=== PATIENT | female | born 1935 | race Caucasian/White ===

== ENCOUNTER 2018-09-26 15:16 | Observation (INO) ==
[2018-09-26] MEDS ORDERED: *HR* FentaNYL (PF) 100 MCG/2 ML VIAL IVP ONE ×2 (15:35→18:56)
[2018-09-26] MEDS ORDERED: Isovue-370 500 ML INFUS..BTL IV ONE (15:36)
[2018-09-26 16:03] LABS: Basophils # 0.1 K/mcL (0.0-0.2); Basophils % 0.9 %; Eosinophils % 0.4 %; Hematocrit 38.2 % (35.3-44.9); Hemoglobin 12.8 g/dL (11.5-15.4); Immature Granulocytes % 3.2 % (0-4); Lymphocytes # 1.2 K/mcL (0.6-4.6); Lymphocytes % 17.8 %; Mean Corpuscular HGB Conc 33.5 g/dL (31.6-35.5); Mean Corpuscular Hemoglobin 29.9 pg (28.0-33.3); Mean Corpuscular Volume 89.3 fL (83.0-100.0); Mean Platelet Volume 9.9 fL (9.4-12.4); Monocytes # 0.7 K/mcL (0.0-1.3); Monocytes % 10.1 %; Neutrophils # 4.6 K/mcL (1.6-8.9); Platelet Count 279 K/mcL (140-400); Red Blood Count 4.28 M/mcL (3.82-4.97); Red Cell Distribution Width 13.2 % (11.5-14.5); Segmented Neutrophils % 67.6 %
[2018-09-26 16:16] LABS: Prothrombin Time 11.7 Seconds (9.4-12.1)
[2018-09-26 16:18] LABS: Activated Partial Thrombo Time 30.9 Seconds (26.0-36.0)
[2018-09-26 16:19] LABS: BUN/Creatinine Ratio 19 (6-26); Blood Urea Nitrogen 15 mg/dL (8-23); Calcium 10.2 mg/dL (8.6-10.3); Carbon Dioxide 27 mEq/L (23-29); Chloride 97 mEq/L (98-107); Glucose 192 mg/dL (70-105); Osmolality,Calculated 282 (280-300); Potassium 4.3 mEq/L (3.5-5.1); Sodium 133 mEq/L (136-145); eGFR For Non-African Americans > 60 (> 60)
[2018-09-26 16:20] LABS: Troponin I < 0.03 ng/mL (< 0.04)
[2018-09-26 16:23] LABS: Alanine Aminotransferase 19 Units/L (7-52); Albumin 4.5 g/dL (3.5-5.7); Albumin/Globulin Ratio 1.7 (1.1-2.2); Alkaline Phosphatase 110 Units/L (34-104); Aspartate Amino Transferase 20 Units/L (13-39); Bilirubin,Direct 0.1 mg/dL (0.0-0.2); Bilirubin,Indirect 0.4 mg/dL (0.0-1.2); Bilirubin,Total 0.5 mg/dL (0.3-1.0); Globulin 2.6 g/dL (2.4-3.5); Lipase 10 Units/L (11-82); Total Protein 7.1 g/dL (6.4-8.9)
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
--- NOTE | 2018-09-26 19:30 | Emergency Department Note ---
Disposition Clinical Impression: Intractable back pain, Unable to ambulate Disposition: Admitted As Inpatient Condition: Good General Adult HPI - General Stated complaint: back pain, cp Time Seen by Provider: 09/26/18 15:21 Source: patient Mode of arrival: ambulatory Limitations: no limitations - Related Data Home Medications Medication Instructions Recorded Confirmed Fluticasone Propionate [Aller-Deshaun] 1 spr NS DAILY 09/26/18 09/26/18 RX: Albuterol Sulfate [Albuterol 2 puff IH Q4H PRN 09/26/18 09/26/18 Inhaler] RX: Beclomethasone Dip 40mcg REDIH 40 mcg IH BID 09/26/18 09/26/18 [Qvar 40 Mcg Redihaler] Allergies Allergy/AdvReac Type Severity Reaction Status Date / Time No Known Allergies Allergy Verified 09/25/18 07:45 Past Medical History - Past Medical History Medical history: Reports: asthma Psychiatric history: Reports: no psych history SALES AND TRAINING SPECIALIST history: Reports: no SALES AND TRAINING SPECIALIST history - Social History Smoking Status: Never smoker Smokeless Tobacco Status: No Alcohol use: Reports: none Drug use: Reports: none Physical Exam - General Limitations: no limitations Course Vital Signs Temperature 98.4 F 09/26/18 15:26 Pulse Rate 99 09/26/18 15:26 Respiratory Rate 18 09/26/18 15:26 Blood Pressure 141/93 09/26/18 15:26 O2 Sat by Pulse Oximetry 100 09/26/18 15:26 Temperature 98.4 F 09/26/18 15:26 Pulse Rate 88 09/26/18 20:20 Respiratory Rate 16 09/26/18 20:20 Blood Pressure 122/82 09/26/18 20:20 O2 Sat by Pulse Oximetry 98 09/26/18 20:20 Oxygen Delivery Oxygen Delivery Room Air Medical Decision Making - Lab Data Result diagrams: 09/26/18 15:33 09/26/18 15:33 Lab Results 09/26/18 09/26/18 09/26/18 Range/Units 15:23 15:33 15:33 WBC 6.8 (4.3-11.1) K/mcL RBC 4.28 (3.82-4.97) M/mcL Hgb 12.8 (11.5-15.4) g/dL Hct 38.2 (35.3-44.9) % MCV 89.3 (83.0-100.0) fL MCH 29.9 (28.0-33.3) pg MCHC 33.5 (31.6-35.5) g/dL RDW 13.2 (11.5-14.5) % Plt Count 279 (140-400) K/mcL MPV 9.9 (9.4-12.4) fL Immature Gran % 3.2 (0-4) % Seg Neutrophils % 67.6 % Lymphocytes % 17.8 % Monocytes % 10.1 % Eosinophils % 0.4 % Basophils % 0.9 % Neutrophils # 4.6 (1.6-8.9) K/mcL Lymphocytes # 1.2 (0.6-4.6) K/mcL Monocytes # 0.7 (0.0-1.3) K/mcL Eosinophils # 0.0 (0.0-0.6) K/mcL Basophils # 0.1 (0.0-0.2) K/mcL PT 11.7 (9.4-12.1) Seconds INR 1.0 APTT 30.9 (26.0-36.0) Seconds Sodium 133 L (136-145) mEq/L Potassium 4.3 (3.5-5.1) mEq/L Chloride 97 L (98-107) mEq/L Carbon Dioxide 27 (23-29) mEq/L BUN 15 (8-23) mg/dL Creatinine 0.78 (0.60-1.20) mg/dL Est GFR ( Amer) > 60 (> 60) Est GFR (Non-Af Amer) > 60 (> 60) BUN/Creatinine Ratio 19 (6-26) Glucose 192 H (70-105) mg/dL Calculated Osmolality 282 (280-300) Calcium 10.2 (8.6-10.3) mg/dL Total Bilirubin 0.5 (0.3-1.0) mg/dL Direct Bilirubin 0.1 (0.0-0.2) mg/dL Indirect Bilirubin 0.4 (0.0-1.2) mg/dL AST 20 (13-39) Units/L ALT 19 (7-52) Units/L Alkaline Phosphatase 110 H (34-104) Units/L Troponin I < 0.03 (< 0.04) ng/mL Serum Total Protein 7.1 (6.4-8.9) g/dL Albumin 4.5 (3.5-5.7) g/dL Globulin 2.6 (2.4-3.5) g/dL Albumin/Globulin Ratio 1.7 (1.1-2.2) Lipase 10 L (11-82) Units/L Attestation Statement - Attestation Attestation: I examined this patient and my medical decision-making was reviewed with the Resident Physician. I agree with the documented findings, disposition and tr eatment plan as described except to the extent set forth below. [id number] time provided Patient presents from home by EMS. She complains of low back pain. She states she has chronic low back pain. She denies new injury. She appears mildly uncomfortable on exam.
[2018-09-26] MEDS ORDERED: Ketorolac 15 MG/ML VIAL IVP PRN (21:11)
[2018-09-26] MEDS ORDERED: Acetaminophen 325 MG TABLET PO PRN (21:11)
[2018-09-26] MEDS ORDERED: Naloxone 0.4 MG/ML INJ IVP PRN (21:11)
[2018-09-26] MEDS ORDERED: *HR* HYDROcodone/Acet 5/325 mg TABLET PO PRN (21:11)
[2018-09-26] MEDS ORDERED: 0.9 % Sodium Chloride 1,000 ML IVC SCH (21:15)
--- NOTE | 2018-09-26 22:36 | Internal Med History&Physical ---
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 She felt exquisite pain in her lower back and a popping sound. She has been to the ER on multiple occasions and PCP for the pain, being prescribed analgesics as needed. She states that the pain has been ascending into her upper back of recent and today became exquisite. In the ER she required 2 doses of IV fentanyl to obtain only modest relief. It is exacerbated by movement and at this time feels limited in that regards. She also feels that she cannot care for her adequately because of her pain and inability to move while he remains alone at home tonight. guest services associate were consulted for assistance. For now she is admitted for intractable back pain. CT scan done showed an L4 compression fracture which is subacute to chronic. She reports associated pain in her hip too as it radiates but otherwise has no other complaints. Family history reviewed and found noncontributory. Past Med Surg Social Fam HX - Past Medical History Medical history: asthma Additional medical history: skin cancer-melanoma. diverticulitis Psychiatric history: no psych history - Past Surgical History Additional surgical history: part of colon d/t diverticulitis - Social History Smoking Status: Never smoker Smokeless Tobacco Status: No Alcohol use: none Drug use: none Internal Medicine - H&P: Meds Albuterol Sulfate [Albuterol Inhaler] 2 puff IH Q4H PRN 09/26/18 [History] Beclomethasone Dip 40mcg REDIH [Qvar 40 Mcg Redihaler] 40 mcg IH BID 09/26/18 [History] Fluticasone Propionate [Aller-Deshaun] 1 spr NS DAILY 09/26/18 [History] Allergy/AdvReac Type Severity Reaction Status Date / Time No Known Allergies Allergy Verified 09/25/18 07:45 All Systems PM: A 10-system review of systems was performed and is negative for pertinent findings except as documented above in the HPI. - Constitutional Vitals: Temp Pulse Resp BP Pulse Ox 98.4 F 88 16 122/82 98 09/26/18 15:26 09/26/18 20:20 09/26/18 20:20 09/26/18 20:20 09/26/18 20:20 Exam: Vitals: Reviewed General: Well developed, notable discomfort from pain and antalgic posturing Skin: Wamr and supple. HEENT: Moist mucous membranes. No conjunctivae pallor. Neck: No lymphadenopathy. No JVD. No carotid bruits. No palpable thyroid. Chest: Normal thoracic expansion. Normal breath sounds. Clear to auscultation. Heart: Normal S1 & S2; rhythmic. No rubs or murmurs. Abdomen: Non-distended, soft and non-tender to palpation. No peritoneal reaction. Extremities: No clubbing, cyanosis or edema. No calf tenderness. Normal distal pulses. MSK: Point tenderness in the lumbar midline area and the left subscapular mazin on. No inflammatory signs present. Neurological: Awake, alert and oriented to person, place and time. No focal deficits. Psych: Affect appropriate. Internal Med - H&P Results - Labs CBC & Chem 7: 09/26/18 15:33 09/26/18 15:33 Labs: Short CBC 09/26/18 Range/Units 15:33 WBC 6.8 (4.3-11.1) K/mcL Hgb 12.8 (11.5-15.4) g/dL Hct 38.2 (35.3-44.9) % Plt Count 279 (140-400) K/mcL Neutrophils # 4.6 (1.6-8.9) K/mcL BMP 09/26/18 15:33 Sodium 133 L Potassium 4.3 Chloride 97 L Carbon Dioxide 27 BUN 15 Creatinine 0.78 Glucose 192 H Calcium 10.2 Cardiac Enzymes 09/26/18 Range/Units 15:33 Troponin I < 0.03 (< 0.04) ng/mL Liver Function 09/26/18 Range/Units 15:33 Total Bilirubin 0.5 (0.3-1.0) mg/dL Direct Bilirubin 0.1 (0.0-0.2) mg/dL AST 20 (13-39) Units/L ALT 19 (7-52) Units/L Alkaline Phosphatase 110 H (34-104) Units/L Albumin 4.5 (3.5-5.7) g/dL - Impressions ITS Impressions Chest X-Ray 09/26/18 15:23 IMPRESSION: Left lower lobe opacity likely represents atelectasis. D/ / 09/26/2018 16:14:54 Jayme Bell MD / jaki Interpreting Provider: Jayme Bell MD Abdomen/Pelvis CTA 09/26/18 15:36 IMPRESSION: No acute inflammatory process. No bowel obstruction. Moderate amount of stool suggests constipation. Subacute appearing L4 compression fracture. Increased sclerosis is suspected to be related to healing and less likely osseous metastatic disease. Recommend close follow-up. D/ / 09/26/2018 18:35:05 Jayme Bell MD / jaki Interpreting Provider: Jayme Bell MD - Assessment and plan (1) Intractable back pain Current Visit: Yes Status: Acute Assessment and plan: Likely stemming from compression fracture. Will require PT evaluation at some point. SW assistance for home services given her functional impairment. Lidocaine patch, oral pain meds as needed. (2) COPD (chronic obstructive pulmonary disease) Current Visit: Yes Status: Acute Assessment and plan: Stable w/o signs of acute exacerbation. Will place on JUSTIN prn and LABA/ICS daily. Qualifiers: COPD type: unspecified COPD Qualified Code(s): J44.9 - Chronic obstructive pulmonary disease, unspecified (3) Constipation Current Visit: Yes Status: Acute Assessment and plan: Will place on docusate with the opiate analgesic regimen. Qualifiers: Constipation type: unspecified constipation type Qualified Code(s): K59.00 - Constipation, unspecified (4) DVT prophylaxis Current Visit: Yes Status: Acute Assessment and plan: SubQ heparin. - Time Spent With Patient Total time spent is greater than 50% in coordination of care (as documented) at patient's floor/unit and/or counseling patient: Greater than 35 minutes
[2018-09-26] MEDS: *HR* Heparin 5,000 UNIT/ML VIAL SQ SCH (22:41)
[2018-09-27] MEDS: *HR* OxyCODONE Immed Rel 5 MG TABLET PO PRN ×2 (04:29→11:21)
[2018-09-27] MEDS: *HR* Heparin 5,000 UNIT/ML VIAL SQ SCH ×3 (06:13→22:05)
[2018-09-27 06:40] LABS: BUN/Creatinine Ratio 14 (6-26); Blood Urea Nitrogen 10 mg/dL (8-23); Calcium 9.5 mg/dL (8.6-10.3); Carbon Dioxide 28 mEq/L (23-29); Chloride 103 mEq/L (98-107); Glucose 150 mg/dL (70-105); Osmolality,Calculated 288 (280-300); Potassium 4.2 mEq/L (3.5-5.1); Sodium 138 mEq/L (136-145); eGFR For Non-African Americans > 60 (> 60)
[2018-09-27] MEDS: Beclomethasone 40mcg REDIHALER IH SCH ×2 (10:52→22:29)
[2018-09-27] MEDS: Fluticasone Propionate Nasal 50 MCG/SPRAY BOTTLE NS SCH (13:36)
[2018-09-27] MEDS: *HR* HYDROcodone/Acet 5/325 mg TABLET PO SCH ×2 (16:32→22:05)
--- NOTE | 2018-09-27 23:20 | Internal Med Progress Note ---
Hospitalist Progress Note - Encounter Date of Encounter: 09/27/18 Time of Encounter: 14:00 - Subjective Interval History: SUBJECTIVE: The patient feels better. She tells me that painkillers are taking at from her pain. She is able to ambulate to bathroom on her own. She felt very comfortable when she was talking to medescribed her back pain as 7 on 10 point scale. The pain is located right to her lower lumbar spine. OBJECTIVE: Skin: Free of rash and discoloration. ENMT: Oral/pharyngeal mucosa is normal in appearance. Eyes: Sclera is white. There is no discharge from eyes. Respiratory: Normal breath sounds; no crackles or wheezes. CV: Heart is regular; no gallop or murmur. GI: Abdomen is soft and not tender. There is no palpable mass or visceromegaly. Neuro: There is no focal deficits. ADDITIONAL DATA: CT of abdomen and pelvis shows subacute/chronic compression fracture of L4. It seems to be stable. BMP from today is normal. ASSESSMENT AND PLAN: Intractable low back pain secondary to subacute/chronic compression fracture of L4. We will continue physical therapy. I will switch her to schedule [place]. COPD. Under control. I will continue nebulizer treatments with beclomethasone and albuterol. Constipation. We will continue Colace. - Exam Vitals: Temp Pulse Resp BP Pulse Ox 97.6 F 98 16 144/78 97 09/27/18 19:09 09/27/18 19:09 09/27/18 22:30 09/27/18 19:09 09/27/18 22:30 Exam: xx - Assessment and Plan (1) Constipation Current Visit: Yes Status: Acute (2) Intractable back pain Current Visit: Yes Status: Acute (3) COPD (chronic obstructive pulmonary disease) Current Visit: Yes Status: Acute (4) DVT prophylaxis Current Visit: Yes Status: Acute - Time Spent with Patient Total time spent is greater than 50% in coordination of care (as documented) at patient's floor/unit and/or counseling patient: 25 - 35 minutes Plan of Care Discussed with: patient Internal Medicine: Result - Labs CBC & Chem 7: 09/26/18 15:33 09/27/18 05:34 Labs: BMP 09/27/18 05:34 Sodium 138 Potassium 4.2 Chloride 103 Carbon Dioxide 28 BUN 10 Creatinine 0.72 Glucose 150 H Calcium 9.5 - ABG Interpretation ABG results: PT/INR, D-dimer PT 11.7 Seconds (9.4-12.1) 09/26/18 15:23 Consult Discharge Plan - Plan Referrals: Linnea Quintero DO [Primary Care Provider] - (1) Constipation Qualifiers: Constipation type: unspecified constipation type Qualified Code(s): K59.00 - Constipation, unspecified (3) COPD (chronic obstructive pulmonary disease) Qualifiers: COPD type: unspecified COPD Qualified Code(s): J44.9 - Chronic obstructive pulmonary disease, unspecified
[2018-09-28] MEDS: *HR* Heparin 5,000 UNIT/ML VIAL SQ SCH ×3 (06:37→21:29)
[2018-09-28] MEDS: Beclomethasone 40mcg REDIHALER IH SCH ×2 (08:12→22:00)
[2018-09-28] MEDS: *HR* HYDROcodone/Acet 5/325 mg TABLET PO SCH ×4 (10:05→21:28)
[2018-09-28] MEDS: Fluticasone Propionate Nasal 50 MCG/SPRAY BOTTLE NS SCH (10:19)
[2018-09-28 10:23] LABS: Estimated Average Glucose 177 mg/dl; Hemoglobin A1C 7.8 %
--- NOTE | 2018-09-28 16:10 | Internal Med Progress Note ---
Hospitalist Progress Note - Encounter Date of Encounter: 09/28/18 Time of Encounter: 16:08 - Subjective Interval History: SUBJECTIVE: Patient is on schedule to [place]-5. She is able to ambulate with her walker. She was not using walker before this hospitalization. Her low back pain is better today, comparing to yesterday. Denies chest pain. Denies difficulty breathing, coughing and wheezing. Her last bowel movement was yesterday. She makes good amounts of urine. OBJECTIVE: Skin: Free of rash and discoloration. ENMT: Oral/pharyngeal mucosa is normal in appearance. Eyes: Sclera is white. There is no discharge from eyes. Respiratory: Normal breath sounds; no crackles or wheezes. CV: Heart is regular; no gallop or murmur. GI: Abdomen is soft and not tender. There is no palpable mass or visceromegaly. Neuro: There is no focal deficits. ADDITIONAL DATA: CT of abdomen and pelvis shows subacute/chronic compression fracture of L4. It seems to be stable. BMP from yesterday was normal. ASSESSMENT AND PLAN: Intractable low back pain secondary to subacute/chronic compression fracture of L4. We will continue physical therapy and scheduled Blanca. COPD. Under control. I will continue nebulizer treatments with beclomethasone and albuterol. Constipation. We will continue Colace. Elevated glucose. We will check her hemoglobin A1c. Disposition: The patient will be either discharged home or to [facility]. We will make this determination with help of a social services and physical therapy. - Exam Vitals: Temp Pulse Resp BP Pulse Ox 98.3 F 93 16 123/82 98 09/28/18 15:00 09/28/18 15:00 09/28/18 15:00 09/28/18 15:00 09/28/18 15:00 Exam: xx - Assessment and Plan (1) Intractable back pain Current Visit: Yes Status: Acute (2) Compression fracture of lumbar spine, non-traumatic Current Visit: Yes Status: Acute (3) COPD (chronic obstructive pulmonary disease) Current Visit: Yes Status: Acute (4) Constipation Current Visit: Yes Status: Acute - Time Spent with Patient Total time spent is greater than 50% in coordination of care (as documented) at patient's floor/unit and/or counseling patient: 25 - 35 minutes Plan of Care Discussed with: patient Internal Medicine: Result - Labs CBC & Chem 7: 09/26/18 15:33 09/27/18 05:34 - ABG Interpretation ABG results: PT/INR, D-dimer PT 11.7 Seconds (9.4-12.1) 09/26/18 15:23 Consult Discharge Plan - Plan Referrals: Linnea Quintero DO [Primary Care Provider] - (2) Compression fracture of lumbar spine, non-traumatic Qualifiers: Encounter type: initial encounter Lumbar vertebra fracture level: L4 Qualified Code(s): M48.56XA - Collapsed vertebra, not elsewhere classified, lumbar region, initial encounter for fracture (3) COPD (chronic obstructive pulmonary disease) Qualifiers: COPD type: unspecified COPD Qualified Code(s): J44.9 - Chronic obstructive pulmonary disease, unspecified (4) Constipation Qualifiers: Constipation type: unspecified constipation type Qualified Code(s): K59.00 - Constipation, unspecified
[2018-09-29] MEDS: *HR* Heparin 5,000 UNIT/ML VIAL SQ SCH ×2 (06:25→14:47)
[2018-09-29] MEDS: Beclomethasone 40mcg REDIHALER IH SCH (08:24)
[2018-09-29] MEDS: *HR* HYDROcodone/Acet 5/325 mg TABLET PO SCH ×3 (09:06→17:26)
[2018-09-29] MEDS: Fluticasone Propionate Nasal 50 MCG/SPRAY BOTTLE NS SCH (09:07)
--- NOTE | 2018-09-29 15:11 | Discharge Summary ---
- NOTES TO OUTPATIENT PROVIDER Notes to Outpatient Provider: NEEDS DIABETIC EDUCATION AND REFERRAL TO A NEUROSURGEON.. Date of Encounter: 09/29/18 Time of Encounter: 15:10 - Discharge Diagnosis (1) Intractable back pain Priority: Primary Status: Acute (2) Compression fracture of lumbar spine, non-traumatic Priority: Primary Status: Acute Qualifiers: Encounter type: initial encounter Lumbar vertebra fracture level: L4 Qualified Code(s): M48.56XA - Collapsed vertebra, not elsewhere classified, lumbar region, initial encounter for fracture (3) T2DM (type 2 diabetes mellitus) Priority: Secondary Status: Acute Qualifiers: Diabetes mellitus shelter insulin use: without middle or intermediate school principal use Diabetes mellitus complication status: without complication Qualified Code(s): E11.9 - Type 2 diabetes mellitus without complications (4) COPD (chronic obstructive pulmonary disease) Priority: Secondary Status: Chronic Qualifiers: COPD type: unspecified COPD Qualified Code(s): J44.9 - Chronic obstructive pulmonary disease, unspecified (5) Constipation Priority: Secondary Status: Chronic Qualifiers: Constipation type: unspecified constipation type Qualified Code(s): K59.00 - Constipation, unspecified Hospital course: HOSPITAL COURSE: The patient is an 82-year-old woman. It was a few months before this admission when she felt exquisite pain in her lower back, when lifting her sick . Since then, she has been dealing with this painfluctuating in intensity. The pain got worse in the last few days preceding this admission. It made her ambulation difficult. She started using a walker (belonging to her ) at home. She required 2 injections of IV fentanyl when being in our emergency room on the day of admission. CT of lumbar spine was obtained. It showed subacute to chronic compression f racture of L4. We admitted her to the hospital. We offered her lidocaine patch and when necessary oral solution oxycodone. She was also getting when necessary IV Toradol. Then, I switched her to scheduled [place]-5. She started physical therapy. She is able to ambulate with a walker; can walk without assistance. CONDITION AT DISCHARGE: The patient basically does not have any resting pain. The pain is relatively mild, when she is ambulating with a walker. Denies chest pain. Denies difficulty breathing, coughing and wheezing. Skin: Free of rash and discoloration. Respiratory: Normal breath sounds with no crackles and wheezes bilaterally. CV: Heart is regular with no gallop or murmur. GI: Abdomen is flat and soft with no palpable mass or visceromegaly. Neuro exam: There is no focal deficits. Normal speech, swallowing and gait. SEE DISCHARGE ORDERS/MEDICATIONS.. The patient is discharged home. She will need a referral to a neurosurgeon. She will need diabetic education, as we found her to have mild type 2 diabetes mellitus. Discharge discussed with: patient, social work - Time Spent with Patient Total time spent providing and/or coordinating discharge services: Greater than 30 minutes (40 minutes..) - Discharge Medications Prescriptions: HYDROcodone/Acet 5/325 mg [[place] 5-325 mg] 1 tab PO Q4H PRN 6 Days #24 tablet PRN Reason: Pain metFORMIN [Glucophage] 500 mg PO BIDWM #60 tablet Home Medications: Albuterol Sulfate [Albuterol Inhaler] 2 puff IH Q4H PRN 09/26/18 [History] Beclomethasone Dip 40mcg REDIH [Qvar 40 Mcg Redihaler] 40 mcg IH BID 09/26/18 [History] Fluticasone Propionate [Aller-Deshaun] 1 spr NS DAILY 09/26/18 [History] Docusate [Colace] 100 mg PO BID capsule 09/29/18 [Rx] HYDROcodone/Acet 5/325 mg [[place] 5-325 mg] 1 tab PO Q4H PRN 6 Days #24 tablet 09/29/18 [Rx] metFORMIN [Glucophage] 500 mg PO BIDWM #60 tablet 09/29/18 [Rx] Allergies/Adverse Reactions: Allergy/AdvReac Type Severity Reaction Status Date / Time No Known Allergies Allergy Verified 09/25/18 07:45 Date of admission: 09/26/18 20:07 Primary care physician: Mirna Stoner Consults: 09/26/18 21:12 Consult to Physician Office Specialist [CONS] Routine Reason for SW Consult: patient admitted with intractable back pain and has in home hospice with no resources available 09/26/18 21:13 PT [Consult to Physical Therapy] [CONS] Routine Comment: Evaluate, develop and implement POC Reason for Consult: intractable back pain with ambulatory difficulty Does patient have active BEDREST order?: No Is patient medically & hemodynamically stable?: Yes Patient assessed for mobility or mobilized this visit?: Yes Discharging clinician: Clyde Nicolas Anticipated date of discharge: 09/29/18 - Constitutional Vitals: Temp Pulse Resp BP Pulse Ox 98.0 F 96 16 121/72 98 09/29/18 11:09 09/29/18 11:09 09/29/18 11:09 09/29/18 11:09 09/29/18 11:09 General appearance: Present: A&O X 3, no acute distress, answers questions appropriately Exam: xx - Patient Status Disposition: Home Health Service Condition: Good - Discharge Instructions Instructions: Diabetes Mellitus Type 2 in Adults (DC) Follow Up With: Linnea Quintero, DO [Primary Care Provider] - - Diet and Activity Activity: ambulate only with your walker (with front wheels..) Diet: diabetic diet - VTE Deep Vein Thrombosis/Pulmonary Embolism Present on Admission: No
--- NOTE | 2018-09-29 15:38 | Physician Discharge Referral ---
Home Health/Hosp Referral Info Transfer to: Home Health Attending Provider: Reggie Nicolas MD Provider in Charge Post Discharge: PCP - Diagnosis (1) Intractable back pain Priority: Primary Status: Acute (2) Compression fracture of lumbar spine, non-traumatic Priority: Primary Status: Acute (3) T2DM (type 2 diabetes mellitus) Priority: Secondary Status: Acute (4) COPD (chronic obstructive pulmonary disease) Priority: Secondary Status: Chronic (5) Constipation Priority: Secondary Status: Chronic - Respiratory Orders None Smoking Cessation: Smoking cessation has been advised. For more information, call the [place] Tobacco Quit Line at 5-480-PNUH-NOW. - Diet/Nutrition Diet/Nutrition Orders: No Concentrated Sweets - Activity Activity Orders: Walker (A ROLLING WALKER NEEDED..) - Services Needed Following services are medically necessary services: Nursing, Home Health Aide, Physical Therapy, Occupational Therapy - Transfer Medications Prescriptions: HYDROcodone/Acet 5/325 mg [[place] 5-325 mg] 1 tab PO Q4H PRN 6 Days #24 tablet PRN Reason: Pain metFORMIN [Glucophage] 500 mg PO BIDWM #60 tablet Home Medications: Albuterol Sulfate [Albuterol Inhaler] 2 puff IH Q4H PRN 09/26/18 [History] Beclomethasone Dip 40mcg REDIH [Qvar 40 Mcg Redihaler] 40 mcg IH BID 09/26/18 [History] Fluticasone Propionate [Aller-Deshaun] 1 spr NS DAILY 09/26/18 [History] Docusate [Colace] 100 mg PO BID capsule 09/29/18 [Rx] HYDROcodone/Acet 5/325 mg [[place] 5-325 mg] 1 tab PO Q4H PRN 6 Days #24 tablet 09/29/18 [Rx] metFORMIN [Glucophage] 500 mg PO BIDWM #60 tablet 09/29/18 [Rx] Allergies/Adverse Reactions: Allergy/AdvReac Type Severity Reaction Status Date / Time No Known Allergies Allergy Verified 09/25/18 07:45 Certification: Further, I certify that my clinical findings support that this patient is homebound (i.e. absences from home require considerable and taxing effort and are for medical reasons or [employer] services or infrequently or short duration when for other reasons) because: Homebound Reason: Patient requires assistance of a person or device to safely leave home Attestation: My signature below is to certify that this patient is under my care and that I, or nurse practitioner, or a physician's sugar laboratory assistant working with me, has a [id number] encounter with this patient.
[2018-09-29 16:47] VITALS: BP 125/79
[2018-09-29] MEDS ORDERED: *HR* Metformin 500 MG TABLET PO SCH (17:00)
--- NOTE | 2018-10-03 09:46 | Electrocardiograph Report ---
[place] [id number] Test Date: 2018-09-26 Pat Name: Sussy Marin Department: [id number] Room: [facility] Gender: F Network Support Specialist: : [id number] Requested By: Vinnie Oscar Order Number: [id number] Reading MD: Saurabh Briones Measurements Intervals [place] Rate: 96 P: 38 CA: 123 QRS: -67 QRSD: 121 T: -15 QT: 379 QTc: 479 Interpretive Statements Sinus tachycardia with PACs RBBB and LAFB Electronically Signed On 10-03-2018 9:44:48 EDT by Saurabh Briones
== END 2018-09-29 18:56 | disposition home health service (06) ==
LOC: 3NENU 15:16 → EMEROOARM 15:16 → SUATTDRO 20:07 → 3NENU 20:35
PROVIDERS: ADMIT Internal Medicine; ATTEND Internal Medicine

== ENCOUNTER 2018-12-07 07:24 | Inpatient (IN) ==
[2018-12-07] MEDS ORDERED: Aspirin 81 MG TAB.CHEW PO ONE (07:35)
[2018-12-07 07:46] LABS: Basophils % 0.5 %; Eosinophils % 0.6 %; Hematocrit 28.3 % (35.3-44.9); Immature Granulocytes % 1.1 % (0-4); Lymphocytes # 0.8 K/mcL (0.6-4.6); Lymphocytes % 12.8 %; Mean Corpuscular HGB Conc 31.8 g/dL (31.6-35.5); Mean Corpuscular Hemoglobin 29.3 pg (28.0-33.3); Mean Corpuscular Volume 92.2 fL (83.0-100.0); Mean Platelet Volume 9.5 fL (9.4-12.4); Monocytes # 0.6 K/mcL (0.0-1.3); Monocytes % 9.6 %; Neutrophils # 4.9 K/mcL (1.6-8.9); Platelet Count 261 K/mcL (140-400); Red Blood Count 3.07 M/mcL (3.82-4.97); Red Cell Distribution Width 14.4 % (11.5-14.5); Segmented Neutrophils % 75.4 %
[2018-12-07 08:08] LABS: BUN/Creatinine Ratio 17 (6-26); Blood Urea Nitrogen 10 mg/dL (8-23); Calcium 9.2 mg/dL (8.6-10.3); Carbon Dioxide 26 mEq/L (23-29); Chloride 103 mEq/L (98-107); Glucose 134 mg/dL (70-105); Osmolality,Calculated 285 (280-300); Sodium 137 mEq/L (136-145); eGFR For Non-African Americans > 60 (> 60)
[2018-12-07 08:12] LABS: Troponin I 0.05 ng/mL (< 0.04)
--- NOTE | 2018-12-07 08:13 | Emergency Department Note ---
Disposition Clinical Impression: Multifocal pneumonia, Infection requiring airborne isolation precautions CHF exacerbation Qualifiers: Heart failure type: unspecified Qualified Code(s): I50.9 - Heart failure, unspecified Anemia Qualifiers: Anemia type: unspecified type Qualified Code(s): D64.9 - Anemia, unspecified Chest pain Qualifiers: Chest pain type: unspecified Qualified Code(s): R07.9 - Chest pain, unspecified Disposition: Admitted As Inpatient Condition: Fair Referrals: Linnea Quintero DO [Primary Care Provider] - Forms: ED Satisfaction Letter Time of Disposition: 09:48 General Adult HPI - General Chief complaint: ED Chest Pain Stated complaint: chest pain Time Seen by Provider: 12/07/18 07:27 Source: patient, EMS Mode of arrival: EMS Limitations: no limitations Nursing Notes Reviewed: Yes Vital Signs Reviewed: Yes - History of Present Illness HPI Narrative: Patient is an 82-year-old female with a past medical history of systolic CHF, NC, CAD with 5 stents presents to the emergency department for evaluation of dyspnea as well as chest pressure. Patient states her chest pressure started yesterday evening after eating dinner she describes as a 6/10 in the left side of her chest associated with nausea. Patient states that she is also been short of breath since being discharged from the hospital on November 202017 which she was admitted for NC. She also complains of swelling in the bilateral lower extremities that is worse than usual. States that she does have a dry cough but this is unchanged from her chronic cough. She does have a COPD history however she is a nonsmoker and states that she does not do breathing treatments daily. She has a baseline oxygen requirement of 2 L nasal cannula which she states she only requires at nighttime. Pain Scale: 5 - Related Data Home Medications Medication Instructions Recorded Confirmed Albuterol Sulfate [Albuterol 2 puff IH Q4H PRN 09/26/18 11/18/18 Inhaler] Beclomethasone Dip 40mcg REDIH 40 mcg IH BID 09/26/18 11/18/18 [Qvar 40 Mcg Redihaler] Fluticasone Propionate [Aller-Deshaun] 1 spr NS DAILY PRN 09/26/18 11/18/18 HYDROcodone/Acet 5/325 mg [[place] 1 tab PO Q6H PRN 11/18/18 11/18/18 5-325 mg] Previous Rx's Medication Instructions Recorded Docusate [Colace] 100 mg PO BID capsule 09/29/18 Aspirin Enteric Coated [Aspirin EC] 81 mg PO DAILY tablet. 11/28/18 Furosemide [Lasix] 20 mg PO BIDDIURETIC tablet 11/28/18 Insulin DETEMIR [Levemir] 5 unit SQ HS [id number] 11/28/18 Insulin LISPRO [HumaLOG] 0 units SQ HS vial 11/28/18 Insulin LISPRO [HumaLOG] 0 units SQ TIDAC vial 11/28/18 Melatonin 3 mg PO HS PRN tablet 11/28/18 Metoprolol XL (24 HR) Succ [Toprol 25 mg PO DAILY tab.er.24h 11/28/18 Xl] Omeprazole [PriLOSEC] 20 mg PO BIDAC capsule. 11/28/18 Polyethylene Glycol 3350 [MiraLAX] 17 gm PO DAILY powd.pack 11/28/18 Rosuvastatin [Crestor] 20 mg PO HS tablet 11/28/18 Ticagrelor [Brilinta] 90 mg PO BID tablet 11/28/18 Allergies Allergy/AdvReac Type Severity Reaction Status Date / Time No Known Allergies Allergy Verified 09/25/18 07:45 All systems ED: reviewed and negative except as stated. Review of Systems: As Per HPI Constitutional: Denies: fever, chills Cardiovascular: Reports: chest pain, dyspnea on exertion, orthopnea, edema. Denies: palpitations, syncope, paroxysmal nocturnal dyspnea Respiratory: Denies: cough, dyspnea, wheezes Gastrointestinal: Denies: abdominal pain, nausea, vomiting, diarrhea Musculoskeletal: Denies: back pain, neck pain Integumentary: Denies: rash Neurological: Denies: headache, weakness, numbness Past Medical History - Past Medical History Attestation: Yes The following information was validated with the patient. Medical history: Reports: asthma, CHF, COPD, diabetes, myocardial infarction Psychiatric history: Reports: no psych history REGISTERED NURSE OBSTETRICS history: Reports: no REGISTERED NURSE OBSTETRICS history - Social History Smoking Status: Never smoker Smokeless Tobacco Status: No Alcohol use: Reports: none Drug use: Reports: none Physical Exam - General Limitations: no limitations General appearance: alert, other (Patient has difficulty speaking in full sentences due increased work of breathing) - Head Head exam: atraumatic, normocephalic, normal inspection - Eye Eye exam: Present: normal appearance, PERRL, EOMI - ENT ENT exam: normal exam, normal oropharynx, mucous membranes moist - Neck Neck exam: Present: normal inspection, full ROM, trachea midline - Chest Chest inspection: Present: normal inspection, symmetric chest wall rise - Respiratory Respiratory exam: Present: respiratory distress (mild, patient is short of breath with speaking), other (crackles in the RUL). Absent: wheezes, stridor - Cardiovascular Cardiovascular exam: Present: regular rate, normal rhythm, normal heart sounds, +S1, +S2 - Abdominal Exam Abdominal exam: Present: soft, Non-Tender, normal bowel sounds. Absent: distention, guarding, rebound, rigidity - Extremities Exam Extremities exam: Present: full ROM, normal capillary refill, pedal edema (2+ bilateral). Absent: tenderness - Back Exam Back exam: Present: normal inspection. Absent: tenderness - Neurological Exam Neurological exam: Present: alert, oriented X3 - Psychiatric Psychiatric exam: Present: normal affect, normal mood - Skin Skin exam: Present: warm, dry, intact, normal color Course Course Narrative: Patient is recently admitted to the hospital on November 152015 for a STEMI. She underwent PCI on 11/16 for occluded LCx and again on 11/20 to the RCA. Her most recent TTE showed an EF of 40-45%. She had similar findings on her chest x-ray and differential diagnosis of pneumonia versus pulmonary edema was d iscussed the causes thought to be more pulmonary edema the setting of a recent NC and chronic bilateral lower extremity swelling over the past 2 months. The patient ultimately was discharged she is placed on by mouth Lasix 20 mg twice a day. Plan today is to evaluate the patient for her chest pressure as well as her dyspnea. She does appear actively dyspneic on exam. She will undergo evaluation for cardiac ideology of her current symptoms include evaluation for NC, PE, CHF and also rule out pneumonia. - Reevaluation(s) Reevaluation #1: Patient's chest x-ray was concerning for signs of possible tuberculosis infection. There is also concern for a right-sided small apical pneumothorax. Given these findings the patient was placed in isolation with airborne precautions. She main stable at this time. Her d-dimer returned elevated she will undergo a CTA of the chest to evaluate for PE as well as to further evaluate her findings of possible TB and pneumothorax. Time: 08:39 Reevaluation #2: Patient's chest pain improved with nitroglycerin. The CT scan of her chest is concerning for multifocal pneumonia. Revealed no PE or pneumothorax. Plan this time start the patient on IV antibiotics for pneumonia. Her blood pressure is soft given that she recently received nitrous we will hold on Lasix at this time. Time: 09:33 Reevaluation #3: Discussed the patient case with Dr. Tom and he agrees to accept the patient. Time: 09:50 Vital Signs Temperature 98.2 F 12/07/18 07:25 Pulse Rate 94 12/07/18 07:25 Respiratory Rate 18 12/07/18 07:25 Blood Pressure 119/82 12/07/18 07:25 O2 Sat by Pulse Oximetry 99 12/07/18 07:25 Temperature 98.2 F 12/07/18 07:25 Pulse Rate 106 12/07/18 09:18 Respiratory Rate 18 12/07/18 09:18 Blood Pressure 98/76 12/07/18 09:18 O2 Sat by Pulse Oximetry 98 12/07/18 09:18 Oxygen Delivery Oxygen Delivery Nasal Cannula Medical Decision Making - Medical Records Medical records reviewed: Yes I reviewed the patient's medical records. - Lab Data Lab results reviewed: Yes I reviewed the patient's lab results. Result diagrams: 12/07/18 07:35 12/07/18 07:35 Lab Results 12/07/18 12/07/18 12/07/18 Range/Units 07:35 07:35 07:35 WBC 6.6 (4.3-11.1) K/mcL RBC 3.07 L (3.82-4.97) M/mcL Hgb 9.0 L (11.5-15.4) g/dL Hct 28.3 L (35.3-44.9) % MCV 92.2 (83.0-100.0) fL MCH 29.3 (28.0-33.3) pg MCHC 31.8 (31.6-35.5) g/dL RDW 14.4 (11.5-14.5) % Plt Count 261 (140-400) K/mcL MPV 9.5 (9.4-12.4) fL Immature Gran % 1.1 (0-4) % Seg Neutrophils % 75.4 % Lymphocytes % 12.8 % Monocytes % 9.6 % Eosinophils % 0.6 % Basophils % 0.5 % Neutrophils # 4.9 (1.6-8.9) K/mcL Lymphocytes # 0.8 (0.6-4.6) K/mcL Monocytes # 0.6 (0.0-1.3) K/mcL Eosinophils # 0.0 (0.0-0.6) K/mcL Basophils # 0.0 (0.0-0.2) K/mcL D-Dimer (0-500) ng/mLFEU Sodium 137 (136-145) mEq/L Potassium 4.0 (3.5-5.1) mEq/L Chloride 103 (98-107) mEq/L Carbon Dioxide 26 (23-29) mEq/L BUN 10 (8-23) mg/dL Creatinine 0.60 (0.60-1.20) mg/dL Est GFR ( Amer) > 60 (> 60) Est GFR (Non-Af Amer) > 60 (> 60) BUN/Creatinine Ratio 17 (6-26) Glucose 134 H (70-105) mg/dL Calculated Osmolality 285 (280-300) Calcium 9.2 (8.6-10.3) mg/dL Magnesium 2.0 (1.6-2.6) mg/dL Troponin I 0.05 H* (< 0.04) ng/mL B-Natriuretic Peptide 1449 H (Less than 100) pg/mL Urine Color (Yellow) Urine Clarity (Clear) Urine pH (5.0-8.0) pH Units Ur Specific [place] (1.010-1.025) Urine Protein (Neg-Trace) mg/dL Urine Glucose (UA) (Normal) mg/dL Urine Ketones (Negative) mg/dL Urine Blood (Negative) Urine Nitrite (Negative) Urine Bilirubin (Negative) Urine Urobilinogen (Normal) mg/dL Ur Leukocyte Esterase (Negative) Urine Microscopic RBC (0-3) per hpf Urine Microscopic WBC (0-3) per hpf Ur Squamous Epith Cells (None-Few) per lpf Urine Bacteria (None-Few) per hpf Hyaline Casts (None-Few) per lpf 12/07/18 12/07/18 Range/Units 07:35 08:00 WBC (4.3-11.1) K/mcL RBC (3.82-4.97) M/mcL Hgb (11.5-15.4) g/dL Hct (35.3-44.9) % MCV (83.0-100.0) fL MCH (28.0-33.3) pg MCHC (31.6-35.5) g/dL RDW (11.5-14.5) % Plt Count (140-400) K/mcL MPV (9.4-12.4) fL Immature Gran % (0-4) % Seg Neutrophils % % Lymphocytes % % Monocytes % % Eosinophils % % Basophils % % Neutrophils # (1.6-8.9) K/mcL Lymphocytes # (0.6-4.6) K/mcL Monocytes # (0.0-1.3) K/mcL Eosinophils # (0.0-0.6) K/mcL Basophils # (0.0-0.2) K/mcL D-Dimer 887 H (0-500) ng/mLFEU Sodium (136-145) mEq/L Potassium (3.5-5.1) mEq/L Chloride (98-107) mEq/L Carbon Dioxide (23-29) mEq/L BUN (8-23) mg/dL Creatinine (0.60-1.20) mg/dL Est GFR ( Amer) (> 60) Est GFR (Non-Af Amer) (> 60) BUN/Creatinine Ratio (6-26) Glucose (70-105) mg/dL Calculated Osmolality (280-300) Calcium (8.6-10.3) mg/dL Magnesium (1.6-2.6) mg/dL Troponin I (< 0.04) ng/mL B-Natriuretic Peptide (Less than 100) pg/mL Urine Color Yellow (Yellow) Urine Clarity Clear (Clear) Urine pH 7.5 (5.0-8.0) pH Units Ur Specific [place] 1.015 (1.010-1.025) Urine Protein 30 H (Neg-Trace) mg/dL Urine Glucose (UA) Normal (Normal) mg/dL Urine Ketones Negative (Negative) mg/dL Urine Blood Negative (Negative) Urine Nitrite Negative (Negative) Urine Bilirubin Negative (Negative) Urine Urobilinogen Normal (Normal) mg/dL Ur Leukocyte Esterase Negative (Negative) Urine Microscopic RBC 0-3 (0-3) per hpf Urine Microscopic WBC 0-3 (0-3) per hpf Ur Squamous Epith Cells Many H (None-Few) per lpf Urine Bacteria None Seen (None-Few) per hpf Hyaline Casts None Seen (None-Few) per lpf - Radiology Data Radiology results reviewed: Yes I reviewed the patient's radiology results. Chest X-Ray 12/07/18 07:35 IMPRESSION: Small right apical pneumothorax. Severe bilateral upper lobe airspace disease with hilar retraction. Consider atypical infectious etiologies including tuberculosis. CT imaging without contrast may be helpful for further characterization. D/ / 12/07/2018 08:49:30 Sin Lou MD / laura Interpreting Provider: Sin Lou MD Chest CTA 12/07/18 08:23 IMPRESSION: 1. Patchy nodular airspace disease throughout the bilateral lungs favoring multifocal pneumonia. Recommend chest radiograph in 8 weeks to confirm resolution. 2. Small bilateral pleural effusions, left greater than right. 3. Worsening age-indeterminate T7 compression fracture. If there is point tenderness, recommend nonemergent MRI of the thoracic spine. 4. Reactive mediastinal and right hilar adenopathy. D/ / Marcin García MD / Marcin García MD Interpreting Provider: Marcin García MD - EKG Data EKG #1 EKG attestation: Yes I reviewed and interpreted this EKG. EKG results narrative: EKG done at 7:33 shows sinus rhythm at a rate of 97 bpm. Normal axis. Patient has a widened QRS interval at 147 as well as a corrected QT interval of 530. No signs of ischemia when compared to old EKG on 11/22/18
[2018-12-07 08:14] LABS: Bilirubin,Urine Negative (Negative); Blood,Urine Negative (Negative); Clarity,Urine Clear (Clear); Color,Urine Yellow (Yellow); Glucose,Urine (UA) Normal (Normal); Ketones,Urine Negative (Negative); Leukocyte Esterase,Urine Negative (Negative); Nitrite,Urine Negative (Negative); PH,Urine 7.5 pH Units (5.0-8.0); Protein,Urine 30 mg/dL (Neg-Trace); Specific Gravity,Urine 1.015 (1.010-1.025); Urobilinogen,Urine Normal (Normal)
[2018-12-07 08:17] LABS: Bacteria,Urine None Seen per hpf (None-Few); Hyaline Casts,Urine None Seen per lpf (None-Few); RBC,Urine 0-3 per hpf (0-3); Squamous Epithelial Cell,Urine Many per lpf (None-Few); WBC,Urine 0-3 per hpf (0-3)
[2018-12-07] MEDS ORDERED: Isovue-370 500 ML INFUS..BTL IV ONE (08:23)
[2018-12-07] MEDS ORDERED: *HR* Promethazine 25 MG/ML VIAL IVP ONE (08:55)
[2018-12-07] MEDS: Nitroglycerin 0.4 MG TAB.SUBL SL ONE ×2 (09:00→09:05)
[2018-12-07] MEDS ORDERED: Azithromycin 500 MG in D5% in Water 250 ML IVPB ONE (09:35)
[2018-12-07] MEDS ORDERED: Piperacillin/Tazobactam 3.375 GM in Water for inj. (sterile) 20 ML 20 ML IVP ONE (09:35)
--- NOTE | 2018-12-07 09:42 | Emergency Department Note ---
Disposition Clinical Impression: Multifocal pneumonia Disposition: Admitted As Inpatient Referrals: Linnea Quintero DO [Primary Care Provider] - Forms: ED Satisfaction Letter Chest Pain HPI - General Chief Complaint: ED Chest Pain Stated Complaint: chest pain Time Seen by Provider: 12/07/18 07:27 Source: patient, EMS Mode of arrival: EMS Limitations: no limitations - History of Present Illness Severity scale (1-10): 5 - Related Data Home Medications Medication Instructions Recorded Confirmed Albuterol Sulfate [Albuterol 2 puff IH Q4H PRN 09/26/18 11/18/18 Inhaler] Beclomethasone Dip 40mcg REDIH 40 mcg IH BID 09/26/18 11/18/18 [Qvar 40 Mcg Redihaler] Fluticasone Propionate [Aller-Deshaun] 1 spr NS DAILY PRN 09/26/18 11/18/18 HYDROcodone/Acet 5/325 mg [[place] 1 tab PO Q6H PRN 11/18/18 11/18/18 5-325 mg] Previous Rx's Medication Instructions Recorded Docusate [Colace] 100 mg PO BID capsule 09/29/18 Aspirin Enteric Coated [Aspirin EC] 81 mg PO DAILY tablet. 11/28/18 Furosemide [Lasix] 20 mg PO BIDDIURETIC tablet 11/28/18 Insulin DETEMIR [Levemir] 5 unit SQ HS [id number] 11/28/18 Insulin LISPRO [HumaLOG] 0 units SQ HS vial 11/28/18 Insulin LISPRO [HumaLOG] 0 units SQ TIDAC vial 11/28/18 Melatonin 3 mg PO HS PRN tablet 11/28/18 Metoprolol XL (24 HR) Succ [Toprol 25 mg PO DAILY tab.er.24h 11/28/18 Xl] Omeprazole [PriLOSEC] 20 mg PO BIDAC capsule. 11/28/18 Polyethylene Glycol 3350 [MiraLAX] 17 gm PO DAILY powd.pack 11/28/18 Rosuvastatin [Crestor] 20 mg PO HS tablet 11/28/18 Ticagrelor [Brilinta] 90 mg PO BID tablet 11/28/18 Allergies Allergy/AdvReac Type Severity Reaction Status Date / Time No Known Allergies Allergy Verified 09/25/18 07:45 Constitutional: Denies: fever, chills Cardiovascular: Reports: chest pain, dyspnea on exertion, orthopnea, edema. 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 - Social History Smoking Status: Never smoker Alcohol use: Reports: none Drug use: Reports: none Physical Exam - General Limitations: no limitations General appearance: alert, other (Patient has difficulty speaking in full sentences due increased work of breathing) Course Vital Signs Temperature 98.2 F 12/07/18 07:25 Pulse Rate 94 12/07/18 07:25 Respiratory Rate 18 12/07/18 07:25 Blood Pressure 119/82 12/07/18 07:25 O2 Sat by Pulse Oximetry 99 12/07/18 07:25 Temperature 98.2 F 12/07/18 07:25 Pulse Rate 106 12/07/18 09:18 Respiratory Rate 18 12/07/18 09:18 Blood Pressure 98/76 12/07/18 09:18 O2 Sat by Pulse Oximetry 98 12/07/18 09:18 Oxygen Delivery Oxygen Delivery Nasal Cannula Chest Pain - Lab Data Result diagrams: 12/07/18 07:35 12/07/18 07:35 Lab Results 12/07/18 12/07/18 12/07/18 Range/Units 07:35 07:35 07:35 WBC 6.6 (4.3-11.1) K/mcL RBC 3.07 L (3.82-4.97) M/mcL Hgb 9.0 L (11.5-15.4) g/dL Hct 28.3 L (35.3-44.9) % MCV 92.2 (83.0-100.0) fL MCH 29.3 (28.0-33.3) pg MCHC 31.8 (31.6-35.5) g/dL RDW 14.4 (11.5-14.5) % Plt Count 261 (140-400) K/mcL MPV 9.5 (9.4-12.4) fL Immature Gran % 1.1 (0-4) % Seg Neutrophils % 75.4 % Lymphocytes % 12.8 % Monocytes % 9.6 % Eosinophils % 0.6 % Basophils % 0.5 % Neutrophils # 4.9 (1.6-8.9) K/mcL Lymphocytes # 0.8 (0.6-4.6) K/mcL Monocytes # 0.6 (0.0-1.3) K/mcL Eosinophils # 0.0 (0.0-0.6) K/mcL Basophils # 0.0 (0.0-0.2) K/mcL D-Dimer (0-500) ng/mLFEU Sodium 137 (136-145) mEq/L Potassium 4.0 (3.5-5.1) mEq/L Chloride 103 (98-107) mEq/L Carbon Dioxide 26 (23-29) mEq/L BUN 10 (8-23) mg/dL Creatinine 0.60 (0.60-1.20) mg/dL Est GFR ( Amer) > 60 (> 60) Est GFR (Non-Af Amer) > 60 (> 60) BUN/Creatinine Ratio 17 (6-26) Glucose 134 H (70-105) mg/dL Calculated Osmolality 285 (280-300) Calcium 9.2 (8.6-10.3) mg/dL Magnesium 2.0 (1.6-2.6) mg/dL Troponin I 0.05 H* (< 0.04) ng/mL B-Natriuretic Peptide 1449 H (Less than 100) pg/mL Urine Color (Yellow) Urine Clarity (Clear) Urine pH (5.0-8.0) pH Units Ur Specific [place] (1.010-1.025) Urine Protein (Neg-Trace) mg/dL Urine Glucose (UA) (Normal) mg/dL Urine Ketones (Negative) mg/dL Urine Blood (Negative) Urine Nitrite (Negative) Urine Bilirubin (Negative) Urine Urobilinogen (Normal) mg/dL Ur Leukocyte Esterase (Negative) Urine Microscopic RBC (0-3) per hpf Urine Microscopic WBC (0-3) per hpf Ur Squamous Epith Cells (None-Few) per lpf Urine Bacteria (None-Few) per hpf Hyaline Casts (None-Few) per lpf 01/06/19 01/06/19 Range/Units 07:35 08:00 WBC (4.3-11.1) K/mcL RBC (3.82-4.97) M/mcL Hgb (11.5-15.4) g/dL Hct (35.3-44.9) % MCV (83.0-100.0) fL MCH (28.0-33.3) pg MCHC (31.6-35.5) g/dL RDW (11.5-14.5) % Plt Count (140-400) K/mcL MPV (9.4-12.4) fL Immature Gran % (0-4) % Seg Neutrophils % % Lymphocytes % % Monocytes % % Eosinophils % % Basophils % % Neutrophils # (1.6-8.9) K/mcL Lymphocytes # (0.6-4.6) K/mcL Monocytes # (0.0-1.3) K/mcL Eosinophils # (0.0-0.6) K/mcL Basophils # (0.0-0.2) K/mcL D-Dimer 887 H (0-500) ng/mLFEU Sodium (136-145) mEq/L Potassium (3.5-5.1) mEq/L Chloride (98-107) mEq/L Carbon Dioxide (23-29) mEq/L BUN (8-23) mg/dL Creatinine (0.60-1.20) mg/dL Est GFR ( Amer) (> 60) Est GFR (Non-Af Amer) (> 60) BUN/Creatinine Ratio (6-26) Glucose (70-105) mg/dL Calculated Osmolality (280-300) Calcium (8.6-10.3) mg/dL Magnesium (1.6-2.6) mg/dL Troponin I (< 0.04) ng/mL B-Natriuretic Peptide (Less than 100) pg/mL Urine Color Yellow (Yellow) Urine Clarity Clear (Clear) Urine pH 7.5 (5.0-8.0) pH Units Ur Specific [place] 1.015 (1.010-1.025) Urine Protein 30 H (Neg-Trace) mg/dL Urine Glucose (UA) Normal (Normal) mg/dL Urine Ketones Negative (Negative) mg/dL Urine Blood Negative (Negative) Urine Nitrite Negative (Negative) Urine Bilirubin Negative (Negative) Urine Urobilinogen Normal (Normal) mg/dL Ur Leukocyte Esterase Negative (Negative) Urine Microscopic RBC 0-3 (0-3) per hpf Urine Microscopic WBC 0-3 (0-3) per hpf Ur Squamous Epith Cells Many H (None-Few) per lpf Urine Bacteria None Seen (None-Few) per hpf Hyaline Casts None Seen (None-Few) per lpf Attestation Statement - Attestation Attestation: I examined this patient and my medical decision-making was reviewed with the Resident Physician. I agree with the documented findings, disposition and treatment plan as described except to the extent set forth below. 82 year old female presents to the eD with complaints of exertional dyspnea and hypoxia to 89% [place] appears to have a suspicious apical ptx and concerns for TB on CXR with an elevaated D-dimer. On CTA chest, PTX and PE have been ruled out and she does appear to have mutlifocal puemoina with hilar apenopathy. WE will continue to use TB precautions with patients and start broad specturm anitbiotics.
[2018-12-07] MEDS ORDERED: Naloxone 0.4 MG/ML INJ IVP PRN (09:49)
[2018-12-07] MEDS ORDERED: Dextrose Gel 15 GM/37.5 ML TUBE PO PRN ×2 (09:51)
[2018-12-07] MEDS ORDERED: *HR* Dextrose 50 % in Water (Syg) 50 ML SYRINGE IVP PRN (09:51)
[2018-12-07] MEDS ORDERED: D5% in Water 1,000 ML IVC PRN (09:51)
[2018-12-07] MEDS ORDERED: D5% in Water 250 ML ONE (09:57)
[2018-12-07] MEDS ORDERED: Furosemide 20 MG/2 ML VIAL IVP ONE (10:31)
--- NOTE | 2018-12-07 10:38 | Internal Med History&Physical ---
Date of Encounter: 12/07/18 Time of Encounter: 10:32 Internal Medicine - H&P: HPI Chief complaint: chest pain Admitted From: Long-term Nursing Facility Plans for Post Hospital Care: Transfer [facility] History of present illness: Ms. Marin is a 82 year old female with PMH CAD, CHF and diabetes presented to [facility] on 12/07/2018 with complaints of chest pain. She was found to have significant pneumonia and was hospitalized for IV ATB. Information obtained from chart review and patient report. Seen and examined at bedside. Patient says she feels better at time of exam from when she came in. Still having some mild chest discomfort. Patient reports acute onset of left- sided chest pressure that radiated to back that woke her from sleep at 4:00 this morning. Described chest pain as a pressure and sharp at times. Received nitroglycerin in ED with improvement in chest pain. She does report intermittent shortness of breath as well which is worse with exertion. Says she has a productive cough. No fevers. She thinks she has had night sweats once or twice with the past week. No hemoptysis. Past Med Surg Social Fam HX - Past Medical History Medical history: asthma, CHF, COPD, diabetes, myocardial infarction Additional medical history: skin cancer-melanoma. diverticulitis Psychiatric history: no psych history - Past Surgical History Additional surgical history: part of colon d/t diverticulitis, stent x5 - Social History Smoking Status: Never smoker Smokeless Tobacco Status: No Alcohol use: none Drug use: none Internal Medicine - H&P: Meds Albuterol Sulfate [Albuterol Inhaler] 2 puff IH Q4H PRN 09/26/18 [History] Beclomethasone Dip 40mcg REDIH [Qvar 40 Mcg Redihaler] 40 mcg IH BID 09/26/18 [History] Fluticasone Propionate [Aller-Deshaun] 1 spr NS DAILY PRN 09/26/18 [History] Docusate [Colace] 100 mg PO BID capsule 09/29/18 [Rx] HYDROcodone/Acet 5/325 mg [[place] 5-325 mg] 1 tab PO Q6H PRN 11/18/18 [History] Aspirin Enteric Coated [Aspirin EC] 81 mg PO DAILY tablet. 11/28/18 [Rx] Furosemide [Lasix] 20 mg PO BIDDIURETIC tablet 11/28/18 [Rx] Insulin DETEMIR [Levemir] 5 unit SQ HS [id number] 11/28/18 [Rx] Insulin LISPRO [HumaLOG] 0 units SQ HS vial 11/28/18 [Rx] Insulin LISPRO [HumaLOG] 0 units SQ TIDAC vial 11/28/18 [Rx] Melatonin 3 mg PO HS PRN tablet 11/28/18 [Rx] Metoprolol XL (24 HR) Succ [Toprol Xl] 25 mg PO DAILY tab.er.24h 11/28/18 [Rx] Omeprazole [PriLOSEC] 20 mg PO BIDAC capsule. 11/28/18 [Rx] Polyethylene Glycol 3350 [MiraLAX] 17 gm PO DAILY powd.pack 11/28/18 [Rx] Rosuvastatin [Crestor] 20 mg PO HS tablet 11/28/18 [Rx] Ticagrelor [Brilinta] 90 mg PO BID tablet 11/28/18 [Rx] Allergy/AdvReac Type Severity Reaction Status Date / Time No Known Allergies Allergy Verified 09/25/18 07:45 All Systems PM: A 12-system review of systems was performed and is negative for pertinent findings except as documented above in the HPI. - Cardiovascular Cardiovascular ROS IM: chest pain - Respiratory Respiratory: cough, dyspnea - Constitutional Vitals: Temp Pulse Resp BP Pulse Ox 98.2 F 98 22 114/78 98 12/07/18 07:25 12/07/18 10:05 12/07/18 10:05 12/07/18 10:05 12/07/18 10:05 General appearance: Present: A&O X 3, pleasant, no acute distress Exam: . - Head Head exam: Present: atraumatic, normocephalic - Eye Eye exam: Present: PERRL, conjuntiva pink, sclera anicteric Pupils: Present: PERRL - Neck Neck exam general surgery: Present: supple, trachea midline. Absent: lymphadenopathy - Respiratory Respiratory exam: Present: rales, rhonchi. Absent: accessory muscle use, wheezes Additional comments: Scattered rhonchi and rales - Cardiovascular Cardiovascular exam: Present: RRR, +S1, +S2. Absent: diastolic murmur, gallop, rubs, systolic murmur - GI/Abdominal GI/Abdominal exam: Present: normal bowel sounds, soft, no peritoneal signs. Absent: distended, tenderness - Extremities Exam Extremities exam: Present: pedal edema, warm, radial pulses palpable and symmetrical. Absent: calf tenderness, cyanotic - Neurological Exam Neurological exam: Present: CN II-XII intact, oriented X3, no focal deficits. Absent: pronater drift, facial droop, speech deficit - Skin Skin exam: Present: dry, intact Internal Med - H&P Results - Labs CBC & Chem 7: 12/07/18 07:35 12/07/18 07:35 Labs: Short CBC 12/07/18 Range/Units 07:35 WBC 6.6 (4.3-11.1) K/mcL Hgb 9.0 L (11.5-15.4) g/dL Hct 28.3 L (35.3-44.9) % Plt Count 261 (140-400) K/mcL Neutrophils # 4.9 (1.6-8.9) K/mcL BMP 12/07/18 07:35 Sodium 137 Potassium 4.0 Chloride 103 Carbon Dioxide 26 BUN 10 Creatinine 0.60 Glucose 134 H Calcium 9.2 Cardiac Enzymes 12/07/18 Range/Units 07:35 Troponin I 0.05 H* (< 0.04) ng/mL Urine 12/07/18 Range/Units 08:00 Urine Color Yellow (Yellow) Urine Clarity Clear (Clear) Urine pH 7.5 (5.0-8.0) pH Units Ur Specific [place] 1.015 (1.010-1.025) Urine Protein 30 H (Neg-Trace) mg/dL Urine Glucose (UA) Normal (Normal) mg/dL - Impressions ITS Impressions Chest X-Ray 12/07/18 07:35 IMPRESSION: Small right apical pneumothorax. Severe bilateral upper lobe airspace disease with hilar retraction. Consider atypical infectious etiologies including tuberculosis. CT imaging without contrast may be helpful for further characterization. D/ / 12/07/2018 08:49:30 Sin Lou MD / laura Interpreting Provider: Sin Lou MD Chest CTA 12/07/18 08:23 IMPRESSION: 1. Patchy nodular airspace disease throughout the bilateral lungs favoring multifocal pneumonia. Recommend chest radiograph in 8 weeks to confirm resolution. 2. Small bilateral pleural effusions, left greater than right. 3. Worsening age-indeterminate T7 compression fracture. If there is point tenderness, recommend nonemergent MRI of the thoracic spine. 4. Reactive mediastinal and right hilar adenopathy. D/ / Marcin García MD / Marcin García MD Interpreting Provider: Marcin García MD - Assessment and plan (1) Chest pain Current Visit: Yes Status: Acute Assessment and plan: presented with chest pain that woke from sleep at 0400 day of arrival. Recent STEMI; s/p PCI with successful WADE on 11/16/18 and Initial troponin 0.05. EKG without acute ST changes. Chest pain improved with SL nitro in ED. Cycle troponins. NPO at midnight. 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 On 11/20/18 planned staged PCI to the RCA completed, patient also seen to have stenosis distal to LCX stent not previously seen (likely due to clot burden) that was intervened on. There was a 70% stenosis in the mLAD remaining and medical management was recommended. With chest pain as noted above. Cont home ASA, brilinta, BB, statin. Cardiology consulted Qualifiers: Coronary Disease-Associated Artery/Lesion type: [place]ski artery [place] vs. transplanted heart: andreafski heart Associated angina: with stable angina Qualified Code(s): I25.118 - Atherosclerotic heart disease of [place]reafski coronary artery with other forms of angina pectoris (3) Multifocal pneumonia Current Visit: Yes Status: Acute Assessment and plan: Chest CTA showed multifocal PNA. No elevated WBC, afebrile. Does not appear acute or toxic. Recieved IV vanco, zosyn and azithromycin in ED. de-escalate antibiotic to Levaquin only. Urinary antigens, respiratory PCR and sputum culture pending. Will need repeat imaging in 8 weeks to confirm resolution. (4) Acute systolic congestive heart failure Current Visit: No Status: Acute Assessment and plan: EF 30% per LV gram, repeat TTE showed EF 40-45% and mild diastolic dysfunction. Chest CTA with small bilateral pleural effusions. Appears mildly overloaded with dyspnea, rails on exam and lower extremity edema. Leading home Lasix. Give one-time dose IV Lasix. Strict I&Os, daily weights. Defer further diuresis to oncoming hospitalist/cardiology as patient only appears mildly overloaded and BP soft/borderline. (5) Lower extremity edema Current Visit: Yes Status: Acute Assessment and plan: In the setting of acute CHF exacerbation however edema is asymmetrical; left greater than right. With recent extended hospitalization/immobility will check bilateral lower extremity venous Dopplers. (6) Thoracic compression fracture Current Visit: Yes Status: Acute Assessment and plan: chest CTA showed worsening age-indeterminate T7 compression fracture. No point tenderness on exam but this could be contributing to chest pain. MRI pending. Pain control Qualifiers: Encounter type: initial encounter Fracture type: closed Qualified Code(s): S22.000A - Wedge compression fracture of unspecified thoracic vertebra, initial encounter for closed fracture (7) Diabetes Current Visit: Yes Status: Acute Assessment and plan: per hx. Controlled; Hgb A1c 6.7%. Cont home long acting. SSI. Monitor blood sugars and titrate PRN Qualifiers: Diabetes mellitus type: type 2 Diabetes mellitus fdc insulin use: with ocean transportation intermediary use Diabetes mellitus complication status: without complication Qualified Code(s): E11.9 - Type 2 diabetes mellitus without complications; Z7 9.4 - intermediate (current) use of insulin (8) DVT prophylaxis Current Visit: No Status: Acute Assessment and plan: lovenox - Time Spent With Patient Total time spent is greater than 50% in coordination of care (as documented) at patient's floor/unit and/or counseling patient:
[2018-12-07] MEDS ORDERED: Ipratropium/Albuterol Neb 3 ML IH PRN (11:33)
[2018-12-07] MEDS: Insulin LISPRO 300 UNITS/3 ML VIAL SQ SCH ×3 (13:42→20:35)
[2018-12-07 15:21] LABS: Adenovirus Not Detected (Not Detect); Bordetella Pertussis Not Detected (Not Detect); Chlamydophila pneumoniae Not Detected (Not Detect); Coronavirus 229E Not Detected (Not Detect); Coronavirus HKU1 Not Detected (Not Detect); Coronavirus NL63 Not Detected (Not Detect); Coronavirus OC43 Not Detected (Not Detect); Human Metapneumovirus Not Detected (Not Detect); Human Rhinovirus/Enterovirus Not Detected (Not Detect); Influenza A Subtype 2009 H1 Not Detected (Not Detect); Influenza A Untypeable Not Detected (Not Detect); Influenza B Not Detected (Not Detect); Mycoplasma pneumoniae Not Detected (Not Detect); Parainfluenza Virus 1 Not Detected (Not Detect); Parainfluenza Virus 2 Not Detected (Not Detect); Parainfluenza Virus 3 Not Detected (Not Detect); Parainfluenza Virus 4 Not Detected (Not Detect); Respiratory Syncytial Virus Not Detected (Not Detect)
[2018-12-07] MEDS: *HR* OxyCODONE Immed Rel 5 MG TABLET PO PRN (18:04)
[2018-12-07] MEDS: *HR* Ticagrelor 90 MG TABLET PO SCH (20:42)
[2018-12-07] MEDS: Insulin DETEMIR 100 UNIT/ML X5UNITS SQ SCH (21:20)
[2018-12-07] MEDS ORDERED: Saline Nasal Spray 44 ML BOTTLE NS PRN (22:28)
[2018-12-07] MEDS: Ipratropium/Albuterol Neb 3 ML IH SCH (23:00)
[2018-12-08 00:26] LABS: ABG Base Excess 2 mEq/L (-2 to 3); ABG HCO3 25 mEq/L (21-27); ABG Oxygen Saturation 94 % (95-98); ABG PCO2 30 mmHg (35-45); ABG PH 7.53 pH Units (7.32-7.45); ABG PO2 62 mmHg (85-104); ABG TCO2 26 mEq/L (20-26)
[2018-12-08 00:35] LABS: Hematocrit 30.2 % (35.3-44.9); Hemoglobin 9.6 g/dL (11.5-15.4); Mean Corpuscular HGB Conc 31.8 g/dL (31.6-35.5); Mean Corpuscular Hemoglobin 29.2 pg (28.0-33.3); Mean Corpuscular Volume 91.8 fL (83.0-100.0); Platelet Count 285 K/mcL (140-400); Red Blood Count 3.29 M/mcL (3.82-4.97); Red Cell Distribution Width 14.6 % (11.5-14.5)
[2018-12-08] MEDS ORDERED: Furosemide 20 MG/2 ML VIAL IVP ONE (00:57)
[2018-12-08 00:59] LABS: Alanine Aminotransferase 16 Units/L (7-52); Albumin 3.3 g/dL (3.5-5.7); Albumin/Globulin Ratio 1.1 (1.1-2.2); Alkaline Phosphatase 91 Units/L (34-104); Aspartate Amino Transferase 20 Units/L (13-39); BUN/Creatinine Ratio 15 (6-26); Bilirubin,Total 0.7 mg/dL (0.3-1.0); Blood Urea Nitrogen 10 mg/dL (8-23); Calcium 9.4 mg/dL (8.6-10.3); Carbon Dioxide 25 mEq/L (23-29); Chloride 99 mEq/L (98-107); Globulin 3.1 g/dL (2.4-3.5); Glucose 146 mg/dL (70-105); Osmolality,Calculated 282 (280-300); Potassium 3.6 mEq/L (3.5-5.1); Sodium 135 mEq/L (136-145); Total Protein 6.4 g/dL (6.4-8.9); eGFR For Non-African Americans > 60 (> 60)
[2018-12-08] MEDS ORDERED: MethylPREDNISolone 40 MG/ML VIAL IVP ONE (00:59)
[2018-12-08] MEDS ORDERED: *HR* LORazepam 2 MG/ML VIAL IVP ONE (01:03)
[2018-12-08 01:05] LABS: Troponin I 0.05 ng/mL (< 0.04)
[2018-12-08] MEDS ORDERED: traMADol 50 MG TABLET PO ONE (01:30)
[2018-12-08] MEDS: Piperacillin/Tazobactam 3.375 GM in 0.9 % Sodium Chloride Mini Bag 100 ML IVPB SCH ×4 (01:32→17:49)
--- NOTE | 2018-12-08 03:17 | Event Note ---
Date of Encounter: 12/07/18 Time of Encounter: 23:57 Alerted by pts. nurse CLAIRE Arriaza that the pt. was reporting SOB and CP. VS: 98.6F temp, HR 104, RR 22, BP 122/78, SpO2 95% on 3L via NC. Stat EKG and trop ordered. Trop 0.05, unchanged from previous. EKG showed sinus tachycardia with short ID interval with frequent ectopic premature complexes, RBBB, and lateral myocardial infarction of indeterminate age. Previous EKG on 11/22/18 showed sinus tachycardia with atrial premature complexes, incomplete RBBB, and anterolateral myocardial infarction of indeterminate age. ST depression, consider sub-endocardial injury. Stat ABG ordered as well which showed pH of 7.53, PCO2 of 30, PO2 of 62, HCO3 of 25, CO2 of 26, O2 saturation of 94. WBC increased rom 6.6 on 12/07 to 11.8 today. Pt. continues to report chest tightness and denies hx of DVT or PE. CTA of chest on 12/07 show patchy nodular airspace disease throughout the bilateral lungs favoring multifocal pneumonia. Recommend chest radiograph and 8 weeks to confirm resolution. Small bilateral pleural effusions, left greater than right. Worsening age indeterminant T7 compression fracture. If there is a point tenderness, recommend nonemergent MRI of the thoracic spine. Reactive mediastinal and right hilar adenopathy. 1 view CXR shows severe bilateral upper lobe airspace disease with hilar retraction. Consider atypical infectious etiologies including tuberculosis. CT imaging without contrast may be helpful for further characterization. In reviewing pts. H&P, pt. reports night sweats but denies hemoptysis. QuantiFERON TB Gold ordered. Alerted at 00:59 the patient was anxious. One-time order 20 mg IVP Lasix ordered for bilateral pleural effusions. Ativan 1 mg IVP ordered as well as continuation of IV PE back vancomycin and Zosyn since patient was currently meeting sepsis criteria. Stat lactic ordered. Alerted at 01:27 that patient was stating she was having left-sided chest pain behind her left breast and BP was currently 112/75. Nurse instructed to hold Roxicodone and give one-time dose of Ultram. Alerted at 02:49 that patient's SPO2 was dropping into the mid 80s. According to respiratory, patient has history of intubation for similar symptoms. RT called to place BiPAP on pt. immediately
[2018-12-08] MEDS: Ipratropium/Albuterol Neb 3 ML IH SCH ×6 (03:18→23:52)
[2018-12-08] MEDS: *HR* Enoxaparin 40 MG/0.4 ML SYRINGE SQ SCH (04:20)
[2018-12-08] MEDS: Insulin LISPRO 300 UNITS/3 ML VIAL SQ SCH ×4 (08:36→21:54)
[2018-12-08] MEDS: Levofloxacin 750 MG/150 ML 750 MG/150 ML BAG IVPB SCH (08:41)
[2018-12-08] MEDS: Aspirin Enteric Coated 81 MG Tablet PO SCH (08:42)
[2018-12-08] MEDS: *HR* Ticagrelor 90 MG TABLET PO SCH ×2 (08:42→21:47)
--- NOTE | 2018-12-08 10:30 | Cardiology Consult Note ---
Addendum entered and electronically signed by Berto Badillo MD 12/08/18 13:59: I have personally performed a face to face evaluation on this patient. I have reviewed and agree with the documented findings and care plan as documented by the ORGANIZATIONAL RESEARCH CONSULTANT. History and Exam by me shows: 82-year-old female with past history of CAD with recent PCI. She has residual disease in the mid LAD. Now admitted for sepsis secondary to pneumonia. Currently not having chest pain. I agree with antibiotics for, and recovery from pneumonia prior to staged PCI of LAD. Thanks, Berto Badillo MD Original Note: Date of Encounter: 12/08/18 Time of Encounter: 10:00 Assessment and Plan (1) Multifocal pneumonia Current Visit: Yes Status: Acute Per cardiology: -Admitted with multi-focal pneumonia. -On ATB. -On Bipap. -Management per primary service. (2) CHF (congestive heart failure) Current Visit: No Status: Acute Per cardiology: -Acute on chronic CHF reports NYHA class III symptoms. -Bilateral pleural effusions noted per CTA. -BNP 1449. -Was given IV lasix 20mg x2 doses. -Mild, non-pitting edema noted. -TTE 11/17/18: LVEF 40-45%. Normal LV chamber size and wall thickness. Asymmetric hypertrophy of the basal septum. mild LVDD, segmental left ventricular systolic dysfunction, normal right ventricular structure and function, mild MR, TR, moderate-severe PH, est RVSP is 55 mmHg; mid inferior lateral and basal inferior lateral perez were hypokinetic -Was on BB outpatient, not on currently due to hypotension. Was not started on fitz/arb due to hypotension. -Will order PRN lasix. Consider resuming daily dosing once BP improved. -Strict i/os, fluid restrictions, daily weights. -Consider restarted BB once BP improved. -Consider addition of fitz/arb if able pending BP and clinical course. Qualifiers: Heart failure type: systolic Heart failure chronicity: acute on chronic Qualified Code(s): I50.23 - Acute on chronic systolic (congestive) heart failure (3) Elevated troponin Current Visit: Yes Status: Acute Per cardiology: -Troponins 0.05, 0.04, 0.05x2 in the setting of pneumonia. -Denies chest pain. -No acute ischemic ECG changes noted. -On asa, brilinta, statin. Not currently on BB due to hypotension. -Will repeat limited TTE to assess LVEF and wall motion. -Suspect demand ischemia related to pneumonia. -See CAD (4) CAD (coronary artery disease) Current Visit: Yes Status: Chronic Per cardiology: -Known CAD s/p recent IA. -Patient presented with acute inferior lateral STEMI; taken urgently to the lab technician 11/16/18 and underwent PCI to occluded LCx. On 11/20/18 planned staged PCI to the RCA completed, patient also seen to have stenosis distal to LCX stent not previously seen (likely due to clot burden) that was intervened on. There is a 70% stenosis in the mLAD remaining. -ON asa, brilinta, statin. Not on BB currently due to hypotension. -Pending clinical coarse, can consider staged PCI of LAD inpatient. Would recommend recovered from pneumonia prior to staged PCI. Qualifiers: Coronary Disease-Associated Artery/Lesion type: [place] artery [place] vs. transplanted heart: [place] heart Associated angina: without angina Qualified Code(s): I25.10 - Atherosclerotic heart disease of [place] coronary artery without angina pectoris Discussion w patient/family: The assessment and plan as outlined above was discussed with the patient who expressed understanding and agreement. All questions were answered. Thank you for involving us in the care of your patient. Please call with any questions. Discussed and reviewed with . History of Present Illness Consult date: 12/07/18 Requesting physician: Maryellen Vasquez Consult reason: elevated troponin Chief complaint: shortness of breath History of present illness: Ms. Marin is a 82 year old female with a relevant past medical history of recent IA, CAD, asthma, COPD, O2 dependent, ischemic cardiomyopathy, CHF, who presented to [facility] with complaints of shortness of breath. Patient noted to have pneumonia. Cardiology has been consulted for elevated troponin. Patient denies chest pain. Reports shortness of breath started a few days ago. Reports fatigue. Past Med Surg Social Fam HX - Past Medical History Attestation: Yes The following information was validated with the patient. Source: patient, old records reviewed Medical history: asthma, cardiomyopathy, CHF, COPD, coronary artery disease, diabetes, myocardial infarction Additional medical history: skin cancer-melanoma. diverticulitis Psychiatric history: no psych history - Past Surgical History Additional surgical history: part of colon d/t diverticulitis, stent x5 - Social History Smoking Status: Never smoker Smokeless Tobacco Status: No Alcohol use: none Drug use: none - Family History Father Living Status: Medications and Allergies Albuterol Sulfate [Albuterol Inhaler] 2 puff IH Q4H PRN 09/26/18 [History] Beclomethasone Dip 40mcg REDIH [Qvar 40 Mcg Redihaler] 40 mcg IH BID 09/26/18 [History] Fluticasone Propionate [Aller-Deshaun] 1 spr NS DAILY PRN 09/26/18 [History] Docusate [Colace] 100 mg PO BID capsule 09/29/18 [Rx] HYDROcodone/Acet 5/325 mg [[place] 5-325 mg] 0.5 tab PO Q6H PRN 11/18/18 [History] Aspirin Enteric Coated [Aspirin EC] 81 mg PO DAILY tablet. 11/28/18 [Rx] Insulin DETEMIR [Levemir] 5 unit SQ HS q2xzenm 11/28/18 [Rx] Insulin LISPRO [HumaLOG] 0 units SQ HS vial 11/28/18 [Rx] Insulin LISPRO [HumaLOG] 0 units SQ TIDAC vial 11/28/18 [Rx] Melatonin 3 mg PO HS PRN tablet 11/28/18 [Rx] Metoprolol XL (24 HR) Succ [Toprol Xl] 25 mg PO DAILY tab.er.24h 11/28/18 [Rx] Omeprazole [PriLOSEC] 20 mg PO BIDAC capsule. 11/28/18 [Rx] Polyethylene Glycol 3350 [MiraLAX] 17 gm PO DAILY powd.pack 11/28/18 [Rx] Rosuvastatin [Crestor] 20 mg PO HS tablet 11/28/18 [Rx] Ticagrelor [Brilinta] 90 mg PO BID tablet 11/28/18 [Rx] Furosemide [Lasix] 20 mg PO DAILY 12/07/18 [History] Allergy/AdvReac Type Severity Reaction Status Date / Time No Known Allergies Allergy Verified 09/25/18 07:45 All Systems Review: The remainder of the systems were reviewed and are negative - Cardiovascular Cardiovascular: as per HPI, dyspnea at rest, dyspnea on exertion Physical Examination Vital Signs, Last 4 Hours Temp Pulse Resp BP Pulse Ox 12/08/18 09:13 97.5 F L 80 18 84/58 95 12/08/18 08:50 99 12/08/18 07:42 12 96 General: Conversant, Other (Mild conversational dyspnea noted. ) HEENT: Atraumatic, Normocephaly, Mucus Membranes Moist Neck: No JVD, Normal carotid pulses Cardiac: Reg Rate and Rhythm, Normal S1 and S2, No Murmur Lungs: Other (Lung sounds coarse throughout. On bipap. ) Neuro: Alert and responsive, No focal deficits noted Abdomen: Soft, Non-Tender Skin: No rashes noted on visualized skin Musculoskeletal: No Chest Wall Tenderness Extremities: No Clubbing, No Cyanosis, Normal Pulses, Other (Mild bilateral pedal edema noted, non-pitting. ) Results 12/08/18 00:21 12/08/18 00:21 Lab Results Impressions Chest X-Ray 12/07/18 07:35 IMPRESSION: Small right apical pneumothorax. Severe bilateral upper lobe airspace disease with hilar retraction. Consider atypical infectious etiologies including tuberculosis. CT imaging without contrast may be helpful for further characterization. D/ / 12/07/2018 08:49:30 Sin Lou MD / laura Interpreting Provider: Sin Lou MD Thoracic Spine MRI 12/07/18 11:30 IMPRESSION: Compression fracture of T7 with minimal edema. Subtle recent component would be difficult to exclude Minimal multilevel disc bulging as described There is no canal or foraminal narrowing. No additional fractures D/ / Owen Holloway / Owen Holloway Interpreting Provider: Owen Holloway Active Medications Albuterol/Ipratropium (Duoneb) 3 ml IH [id number] DAMIEN Stop: 06/09/19 00:01 Last Admin: 12/08/18 07:41 Dose: 3 ml Aspirin (Aspirin Ec) 81 mg PO DAILY DAMIEN Stop: 06/09/19 09:01 Last Admin: 12/08/18 08:42 Dose: 81 mg Dextrose/Water (Dextrose 50% (Syg)) 25 ml IVP AD PRN PRN Reason: Hypoglycemia Stop: 06/08/19 09:52 Enoxaparin Sodium (Lovenox) 40 mg SQ 0600 DAMIEN; Protocol Stop: 06/09/19 06:01 Last Admin: 12/08/18 04:20 Dose: 40 mg Glucagon (Glucagen) 1 mg IM ONCE PRN PRN Reason: Hypoglycemia Stop: 06/08/19 09:52 Glucose (Gluctose) 15 gm PO ONCE PRN PRN Reason: Hypoglycemia Stop: 06/08/19 09:52 Glucose (Gluctose) 30 gm PO ONCE PRN PRN Reason: Hypoglycemia Stop: 06/08/19 09:52 Dextrose (Dextrose 5%) 1,000 mls @ 100 mls/hr IVC .Q10H PRN PRN Reason: HYPOGLYCEMIA Stop: 06/08/19 09:52 Levofloxacin/Dextrose (Levaquin Premix 750mg/150 Ml) 750 mg in 150 mls @ 100 mls/hr IVPB DAILY DAMIEN; Protocol Stop: 06/09/19 09:01 Last Infusion: 12/08/18 10:16 Dose: Infused Piperacillin Sod/Tazobactam (Sod 3.375 gm/ Sodium Chloride) 100 mls @ 25 mls/hr IVPB Q8H DAMIEN Stop: 06/09/19 02:01 Last Admin: 12/08/18 10:15 Dose: 25 mls/hr Vancomycin HCl 1,000 mg/ (Sodium Chloride) 250 mls @ 167 mls/hr IVPB Q12H DAMIEN; Protocol Stop: 06/09/19 04:11 Last Infusion: 12/08/18 05:51 Dose: Infused Insulin Detemir (Levemir) 5 unit SQ HS DAMIEN Stop: 06/08/19 21:01 Last Admin: 12/07/18 21:20 Dose: 5 unit Insulin Human Lispro (Humalog) 0 units SQ HS DAMIEN; Protocol Stop: 06/08/19 21:01 Last Admin: 12/07/18 20:35 Dose: Not Given Insulin Human Lispro (Humalog) 0 units SQ TIDAC DAMIEN; Protocol Stop: 06/08/19 11:31 Last Admin: 12/08/18 08:36 Dose: Not Given Naloxone HCl (Narcan) 0.4 mg IVP Q2MIN PRN PRN Reason: SEE COMMENTS Stop: 06/08/19 09:50 Oxycodone HCl (Roxicodone) 5 mg PO Q6HR PRN; Protocol PRN Reason: Pain Stop: 06/08/19 11:32 Last Admin: 12/07/18 18:04 Dose: 5 mg Rosuvastatin Calcium (Crestor) 20 mg PO HS DAMIEN Stop: 06/08/19 21:01 Last Admin: 12/07/18 20:42 Dose: 20 mg Sodium Chloride ([place] Nasal [place]) 2 spray NS Q2H PRN PRN Reason: Congestion Stop: 06/08/19 22:29 Last Admin: 12/07/18 23:18 Dose: 2 spray Ticagrelor (Brilinta) 90 mg PO BID DAMIEN Stop: 06/08/19 21:01 Last Admin: 12/08/18 08:42 Dose: 90 mg Laboratory Tests 12/07/18 12/07/18 12/07/18 07:35 07:35 13:52 WBC Hgb Creatinine Troponin I 0.05 H* 0.04 H* B-Natriuretic Peptide 1449 H 12/07/18 12/08/18 12/08/18 21:17 00:21 00:21 WBC 11.8 H D Hgb 9.6 L Creatinine 0.68 Troponin I 0.05 H* 0.05 H* B-Natriuretic Peptide - Imaging and Cardiology Chest Xray: report reviewed Echo: report reviewed Cardiac cath: report reviewed - EKG Interpretation EKG results cardiology: personally reviewed (ECG with ST, HR 101, RBBB.), other (Telemetry reviewed with average HR previous 12 hours noted to be 98, SR. PVCs, couplets, PACs noted. Short run of atrial tachycardia noted.) Consult Discharge Plan - Plan Referrals: Linnea Quintero DO [Primary Care Provider] - 12/09/18 1:30 pm
[2018-12-08] MEDS ORDERED: Furosemide 20 MG TABLET PO PRN (11:20)
--- NOTE | 2018-12-08 11:30 | Pulmonology Consult Note ---
<Loi Villegas W - Last Filed: 12/08/18 18:02> Date of Encounter: 12/08/18 Medications and Allergies Albuterol Sulfate [Albuterol Inhaler] 2 puff IH Q4H PRN 09/26/18 [History] Beclomethasone Dip 40mcg REDIH [Qvar 40 Mcg Redihaler] 40 mcg IH BID 09/26/18 [History] Fluticasone Propionate [Aller-Deshaun] 1 spr NS DAILY PRN 09/26/18 [History] Docusate [Colace] 100 mg PO BID capsule 09/29/18 [Rx] HYDROcodone/Acet 5/325 mg [[place] 5-325 mg] 0.5 tab PO Q6H PRN 11/18/18 [History] Aspirin Enteric Coated [Aspirin EC] 81 mg PO DAILY tablet. 11/28/18 [Rx] Insulin DETEMIR [Levemir] 5 unit SQ HS [id number] 11/28/18 [Rx] Insulin LISPRO [HumaLOG] 0 units SQ HS vial 11/28/18 [Rx] Insulin LISPRO [HumaLOG] 0 units SQ TIDAC vial 11/28/18 [Rx] Melatonin 3 mg PO HS PRN tablet 11/28/18 [Rx] Metoprolol XL (24 HR) Succ [Toprol Xl] 25 mg PO DAILY tab.er.24h 11/28/18 [Rx] Omeprazole [PriLOSEC] 20 mg PO BIDAC capsule. 11/28/18 [Rx] Polyethylene Glycol 3350 [MiraLAX] 17 gm PO DAILY powd.pack 11/28/18 [Rx] Rosuvastatin [Crestor] 20 mg PO HS tablet 11/28/18 [Rx] Ticagrelor [Brilinta] 90 mg PO BID tablet 11/28/18 [Rx] Furosemide [Lasix] 20 mg PO DAILY 12/07/18 [History] Allergy/AdvReac Type Severity Reaction Status Date / Time No Known Allergies Allergy Verified 09/25/18 07:45 All Systems: The remainder of the systems were reviewed and are negative Physical Examination Vital Signs: Vital Signs, Last 4 Hours Temp Pulse Resp BP Pulse Ox 12/08/18 16:05 16 98 12/08/18 15:06 97.7 F 82 20 108/76 100 Results - Laboratory Findings CBC and BMP: 12/08/18 00:21 12/08/18 00:21 ABG ABG pH 7.53 pH Units (7.32-7.45) H 12/08/18 00:23 ABG pCO2 30 mmHg (35-45) L 12/08/18 00:23 ABG pO2 62 mmHg (85-104) L 12/08/18 00:23 ABG O2 Saturation 94 % (95-98) L 12/08/18 00:23 PT/INR, D-dimer D-Dimer 887 ng/mLFEU (0-500) H 12/07/18 07:35 Abnormal lab findings: Abnormal lab results WBC 11.8 K/mcL (4.3-11.1) H D 12/08/18 00:21 RBC 3.29 M/mcL (3.82-4.97) L 12/08/18 00:21 Hgb 9.6 g/dL (11.5-15.4) L 12/08/18 00:21 Hct 30.2 % (35.3-44.9) L 12/08/18 00:21 RDW 14.6 % (11.5-14.5) H 12/08/18 00:21 D-Dimer 887 ng/mLFEU (0-500) H 12/07/18 07:35 ABG pH 7.53 pH Units (7.32-7.45) H 12/08/18 00:23 ABG pCO2 30 mmHg (35-45) L 12/08/18 00:23 ABG pO2 62 mmHg (85-104) L 12/08/18 00:23 ABG O2 Saturation 94 % (95-98) L 12/08/18 00:23 Sodium 135 mEq/L (136-145) L 12/08/18 00:21 Glucose 146 mg/dL (70-105) H 12/08/18 00:21 POC Glucose 130 mg/dL (70-99) H 12/08/18 05:55 Troponin I 0.05 ng/mL (< 0.04) H* 12/08/18 00:21 B-Natriuretic Peptide 1449 pg/mL (Less than 100) H 12/07/18 07:35 Albumin 3.3 g/dL (3.5-5.7) L 12/08/18 00:21 Urine Protein 30 mg/dL (Neg-Trace) H 12/07/18 08:00 Ur Squamous Epith Cells Many per lpf (None-Few) H 12/07/18 08:00 - Microbiology Findings Microbiology Findings: Microbiology, Last 48 Hours 12/07/18 11:09 Blood Culture - Preliminary Peripheral Venipuncture Culture is incubating and being continuously monitored for growth. Final report to follow. 12/07/18 11:09 Blood Culture - Preliminary Peripheral Venipuncture Culture is incubating and being continuously monitored for growth. Final report to follow. - Clinical Findings Intake & Output: Intake & Output 12/08/18 12/08/18 12/08/18 07:59 15:59 23:59 Intake Total 350 / 350 460 / 460 240 / 240 Balance 350 / 350 460 / 460 240 / 240 Weight 68.209 kg Consult Discharge Plan - Plan Referrals: Linnea Quintero DO [Primary Care Provider] - 12/09/18 1:30 pm - Attending Attestation I examined this patient and my medical decision-making was reviewed with the Resident Physician. I agree with the documented findings, disposition and treatment plan as described except to the extent set forth below. We independ ently had [id number] contact with the patient Patient seen and examined at bedside Labs, radiology, chart personally reviewed. Impression/Recs: Sussy Wang is well known to me from pulmonary clinic she suffers from asthma and has a oxygen requirement at night of 2 L. She presented with acute chest pain and acute hypoxic respiratory failure which appears secondary bilateral multifocal pneumonia with asthma exacerbation complicated by some degree by hydrostatic pulmonary edema from heart failure. Overall she appears to be convalescing with interventions over last 24 hours -IV steroids today and can transition to by mouth formulation of glucocorticoids to complete a two-week taper -Agree with scheduled bronchodilators she can take a Symbicort 160/4.52 puffs twice a day while inpatient she uses Dulera as an outpatient -Continue to wean FiO2 to keep oxygen saturation around 92% she will likely need to be discharged home with oxygen and to facilitate this would need to ambulat ory pulse oximetry prior to discharge Encouragingly her oxygen saturation in the room when I was present was 99% looks like we have some room to come down -I suspect if cultures are negative in 24 hours she could be de-escalated to oral [id number] therapy such as Augmentin to complete a 7-10 day course -She will need repeat CT scan in 4-6 weeks to demonstrate resolution of her opacities -As outlined I suspect a degree of hydrostatic pulmonary edema and recommend Lasix diuresis as tolerated by kidney function and blood pressure Overall Sussy appears to be improving with the aggressive excellent interventions by the hospitalist service. I appreciate the you consulting me on her care and if I could be of any further assistance please do not hesitate to call otherwise plan on following with her in pulmonary clinic in 2-4 weeks at the time of discharge <Mandy Rubio - Last Filed: 12/08/18 22:16> Date of Encounter: 12/08/18 Time of Encounter: 11:29 Assessment and Plan (1) Acute and chronic respiratory failure with hypoxia Current Visit: No Status: Acute Likely secondary to COPD exacerbation and multifocal pneumonia. - Continue supplemental oxygen therapy titrated to maintain saturation 88-92% - Further recommendations as detailed below (2) Multifocal pneumonia Current Visit: Yes Status: Acute Currently on broad-spectrum antibiotic therapy with vancomycin, zosyn, and levaquin. - Suspect that antibiotics can be deescalated over the next few days once cultures result - Recommend oral beta lactam therapy with expected duration of therapy between 7 and 10 days total - Plan for repeat chest imaging and followup in the pulmonology clinic in 8 weeks to ensure resolution of acute infection (3) COPD exacerbation Current Visit: Yes Status: Acute - Continue bronchodilator and systemic steroid therapy - Expect that she can be transitioned to oral steroids over the next day or so (4) CHF exacerbation Current Visit: Yes Status: Acute Suspect that her current respiratory issues are complicated, in part, by the presence of pulmonary edema secondary to CHF. - Continue diuresis and fluid restriction - Further management per primary and cardiology teams Qualifiers: Heart failure type: unspecified Qualified Code(s): I50.9 - Heart failure, unspecified History of Present Illness Consult date: 12/08/18 Requesting physician: Annabelle Atkinson Reason for consult: dyspnea Chief complaint: Chest pain/dyspnea History of present illness: Ms. Marin is an 82-year old female with a history of CAD, CHF, and COPD on 2L supplemental oxygen. She presented to the ED on 12/07/2018 complaining of chest pain. CXR demonstrated small right apical pneumothorax and severe bilateral upper lobe airspace disease with hilar retraction. Subsequent CTA revealed patchy nodular airspace disease throughout bilateral lungs favoring multifocal pneumonia, as well as reactive mediastinal and right hilar adenopathy. She was admitted to the hospital for IV antibiotics. Overnight, she began experiencing respiratory distress with tachypnea, with subsequent desaturation into the 80s, prompting BiPAP therapy, which improved her respiratory status. Patient was seen and evaluated at the bedside this afternoon. At that time, she was resting comfortably with supplemental oxygen via nasal canula. She reports improvement in her shortness of breath since last night, and has not had any additional episodes of hypoxia. She denies any acute complaints or concerns. Past Med Surg Social Fam HX - Past Medical History Medical history: asthma, cardiomyopathy, CHF, COPD, coronary artery disease, diabetes, myocardial infarction Additional medical history: skin cancer-melanoma. diverticulitis Psychiatric history: no psych history - Past Surgical History Additional surgical history: part of colon d/t diverticulitis, stent x5 - Social History Smoking Status: Never smoker Smokeless Tobacco Status: No Alcohol use: none Drug use: none - Family History Father Living Status: All Systems: The remainder of the systems were reviewed and are negative - Constitutional Constitutional: no chills, no fever(s) - Cardiovascular Cardiovascular: chest pain, dyspnea, dyspnea on exertion, edema - Respiratory Respiratory: dyspnea, dyspnea on exertion, no cough, no wheezing, no chest congestion, no excessive phlegm production Physical Examination Vital Signs: Vital Signs, Last 4 Hours Temp Pulse Resp BP Pulse Ox 12/08/18 11:19 98.1 F 91 18 108/69 98 12/08/18 09:13 97.5 F L 80 18 84/58 95 12/08/18 08:50 99 12/08/18 07:42 12 96 General appearance: no acute distress, alert Eyes: nonicteric ENT: oropharynx moist Effort: normal Inspection: normal Auscultation: bilateral: clear, diminished breath sounds Cardiovascular: regular rate and rhythm Integumentary: normal Extremities: no cyanosis, no clubbing, pink and warm, edema (1+ pitting in bilateral LE) Musculoskeletal: no deformities normal mental status, non-focal exam mood appropriate, affect normal Results - Laboratory Findings CBC and BMP: 12/08/18 00:21 12/08/18 00:21 ABG ABG pH 7.53 pH Units (7.32-7.45) H 12/08/18 00:23 ABG pCO2 30 mmHg (35-45) L 12/08/18 00:23 ABG pO2 62 mmHg (85-104) L 12/08/18 00:23 ABG O2 Saturation 94 % (95-98) L 12/08/18 00:23 PT/INR, D-dimer D-Dimer 887 ng/mLFEU (0-500) H 12/07/18 07:35 Abnormal lab findings: Abnormal lab results WBC 11.8 K/mcL (4.3-11.1) H D 12/08/18 00:21 RBC 3.29 M/mcL (3.82-4.97) L 12/08/18 00:21 Hgb 9.6 g/dL (11.5-15.4) L 12/08/18 00:21 Hct 30.2 % (35.3-44.9) L 12/08/18 00:21 RDW 14.6 % (11.5-14.5) H 12/08/18 00:21 D-Dimer 887 ng/mLFEU (0-500) H 12/07/18 07:35 ABG pH 7.53 pH Units (7.32-7.45) H 12/08/18 00:23 ABG pCO2 30 mmHg (35-45) L 12/08/18 00:23 ABG pO2 62 mmHg (85-104) L 12/08/18 00:23 ABG O2 Saturation 94 % (95-98) L 12/08/18 00:23 Sodium 135 mEq/L (136-145) L 12/08/18 00:21 Glucose 146 mg/dL (70-105) H 12/08/18 00:21 Troponin I 0.05 ng/mL (< 0.04) H* 12/08/18 00:21 B-Natriuretic Peptide 1449 pg/mL (Less than 100) H 12/07/18 07:35 Albumin 3.3 g/dL (3.5-5.7) L 12/08/18 00:21 Urine Protein 30 mg/dL (Neg-Trace) H 12/07/18 08:00 Ur Squamous Epith Cells Many per lpf (None-Few) H 12/07/18 08:00 - Microbiology Findings Microbiology Findings: Microbiology, Last 48 Hours 12/07/18 11:09 Blood Culture - Preliminary Peripheral Venipuncture Culture is incubating and being continuously monitored for growth. Final report to follow. 12/07/18 11:09 Blood Culture - Preliminary Peripheral Venipuncture Culture is incubating and being continuously monitored for growth. Final report to follow. - Clinical Findings Intake & Output: Intake & Output 12/07/18 12/08/18 12/08/18 23:59 07:59 15:59 Intake Total 350 / 350 160 / 160 Balance 350 / 350 160 / 160 Weight 68.209 kg
[2018-12-08] MEDS: MethylPREDNISolone 40 MG/ML VIAL IVP SCH ×2 (12:09→21:47)
[2018-12-08] MEDS: *HR* OxyCODONE Immed Rel 5 MG TABLET PO PRN ×2 (14:05→23:04)
--- NOTE | 2018-12-08 14:23 | Internal Med Progress Note ---
Hospitalist Progress Note - Encounter Date of Encounter: 12/08/18 Time of Encounter: 11:00 - Subjective Interval History: Patient is feeling better as far as her breathing is concerned. She is off the BiPAP and on 6 L of nasal cannula maintaining good oxygenation. She denies any new fevers or chills. - Exam Vitals: Temp Pulse Resp BP Pulse Ox 98.1 F 91 16 108/69 98 12/08/18 11:19 12/08/18 11:19 12/08/18 11:50 12/08/18 11:19 12/08/18 11:50 Exam: GENERAL: Alert, moderate distress, cooperative EYES: PERRLA, EOMI EARS: External ears normal, canals clear OROPHARYNX: Lips, mucosa, and tongue normal. Teeth and gums normal. Oropharynx normal. NECK: No jugulovenous distention, No carotid bruits, Carotid pulse normal contour, Supple LUNGS: Scattered crackles bilaterally CARDIAC: Normal S1 and S2; no rubs, murmurs, or gallops ABDOMEN: Abdomen soft, non-tender, BS normal, No masses or organomegaly EXTREMITIES: Extremities normal, no deformities, edema, clubbing or skin discoloration. Good capillary refill., No ulcers NEURO: Gait normal. Reflexes normal and symmetric. Sensation grossly intact, Cranial nerves II-XII intact PULSES: 2+ radial, 2+ carotid Rest of the exam is non contributory - Assessment and Plan (1) DVT prophylaxis Current Visit: No Status: Acute Assessment and Plan: lovenox (2) Chest pain Current Visit: Yes Status: Acute Assessment and Plan: Appreciate cardiology consultation. The patient has had recent PCI but still has a residual mid LAD lesions. She will eventually need to undergo cardiac catheter but currently the treatment of her hospital-acquired pneumonia is what precludes her from undergoing further cardiac workup. Discussed in detail with cardiology. Continue on dual antiplatelet therapy for her prior stents Patient currently denies any chest pain and most of her symptoms are related to her pneumonia. (3) Acute systolic congestive heart failure Current Visit: No Status: Acute Assessment and Plan: EF 30% per LV gram, repeat TTE showed EF 40-45% and mild diastolic dysfunction. Chest CTA with small bilateral pleural effusions. Appears mildly overloaded with dyspnea, rails on exam and lower extremity edema. Leading home Lasix. Give one-time dose IV Lasix. Strict I&Os, daily weights. Defer further diure sis to oncoming hospitalist/cardiology as patient only appears mildly overloaded and BP soft/borderline. 12/08-and currently improving after Lasix. Continue strict intake and output. We will follow cardiology recommendations. (4) Multifocal pneumonia Current Visit: Yes Status: Acute Assessment and Plan: Chest CTA showed multifocal PNA. No elevated WBC, afebrile. Does not appear acute or toxic. Recieved IV vanco, zosyn and azithromycin in ED. de-escalate antibiotic to Levaquin only. Urinary antigens, respiratory PCR and sputum culture pending. Will need repeat imaging in 8 weeks to confirm resolution. 12/08-continue broad-spectrum antibiotics. Pulmonary medicine consulted given the patient's history of COPD most likely we are dealing with health care acquired pneumonia. Await cultures. The patient has been weaned from BiPAP and is doing better on nasal cannula. Continue to titrate (5) Diabetes Current Visit: Yes Status: Acute Assessment and Plan: Continue sliding scale insulin and serial Accu-Cheks. (6) CAD (coronary artery disease) Current Visit: Yes Status: Chronic Assessment and Plan: presented as a STEMI on 11/16/18 and was taken urgently to the clinical laboratory aides teacher and underwent PCI to occluded LCx. On 11/20/18 planned staged PCI to the RCA completed, patient also seen to have stenosis distal to LCX stent not previously seen (likely due to clot burden) that was intervened on. There was a 70% stenosis in the mLAD remaining and medical management was recommended. With chest pain as noted above. Cont home ASA, brilinta, BB, statin. Cardiology consulted 12/08-appreciate cardiology consult. Continue to monitor closely. She has residual LAD disease which will need to be treated at some point once her pneumonia gets better. (7) Lower extremity edema Current Visit: Yes Status: Acute (8) Thoracic compression fracture Current Visit: Yes Status: Acute Assessment and Plan: Continue current Pain control . Patient is not complaining of severe pain symptoms at this point. - Time Spent with Patient Total time spent is greater than 50% in coordination of care (as documented) at patient's floor/unit and/or counseling patient: Greater than 35 minutes Plan of Care Discussed with: patient Internal Medicine: Result - Labs CBC & Chem 7: 12/08/18 00:21 12/08/18 00:21 Labs: Short CBC 12/08/18 Range/Units 00:21 WBC 11.8 H D (4.3-11.1) K/mcL Hgb 9.6 L (11.5-15.4) g/dL Hct 30.2 L (35.3-44.9) % Plt Count 285 (140-400) K/mcL BMP 12/08/18 00:21 Sodium 135 L Potassium 3.6 Chloride 99 Carbon Dioxide 25 BUN 10 Creatinine 0.68 Glucose 146 H Calcium 9.4 Cardiac Enzymes 12/07/18 12/07/18 12/08/18 Range/Units 13:52 21:17 00:21 Troponin I 0.04 H* 0.05 H* 0.05 H* (< 0.04) ng/mL Liver Function 12/08/18 Range/Units 00:21 Total Bilirubin 0.7 (0.3-1.0) mg/dL AST 20 (13-39) Units/L ALT 16 (7-52) Units/L Alkaline Phosphatase 91 (34-104) Units/L Albumin 3.3 L (3.5-5.7) g/dL - ABG Interpretation ABG results: ABG ABG pH 7.53 pH Units (7.32-7.45) H 12/08/18 00:23 ABG pCO2 30 mmHg (35-45) L 12/08/18 00:23 ABG pO2 62 mmHg (85-104) L 12/08/18 00:23 ABG O2 Saturation 94 % (95-98) L 12/08/18 00:23 PT/INR, D-dimer D-Dimer 887 ng/mLFEU (0-500) H 12/07/18 07:35 - Impressions Impressions Chest X-Ray 12/07/18 07:35 IMPRESSION: Small right apical pneumothorax. Severe bilateral upper lobe airspace disease with hilar retraction. Consider atypical infectious etiologies including tuberculosis. CT imaging without contrast may be helpful for further characterization. D/ / 12/07/2018 08:49:30 Sin Lou MD / laura Interpreting Provider: Sin Lou MD Thoracic Spine MRI 12/07/18 11:30 IMPRESSION: Compression fracture of T7 with minimal edema. Subtle recent component would be difficult to exclude Minimal multilevel disc bulging as described There is no canal or foraminal narrowing. No additional fractures D/ / Owen Holloway / Owen Holloway Interpreting Provider: Owen Holloway Chest X-Ray 12/08/18 00:01 IMPRESSION: Stable exam with patchy areas of consolidation to the lungs bilaterally with upper lobe predominance which may be on the basis of multifocal pneumonia. Other etiologies not excluded. Continued follow-up recommended. D/ / 12/08/2018 11:41:58 Magdiel Stark MD / Yadi Mendes Interpreting Provider: Magdiel Stark MD Consult Discharge Plan - Plan Referrals: Linnea Quintero DO [Primary Care Provider] - 12/09/18 1:30 pm ____ (2) Chest pain Qualifiers: Chest pain type: unspecified Qualified Code(s): R07.9 - Chest pain, unspecified (5) Diabetes Qualifiers: Diabetes mellitus type: type 2 Diabetes mellitus exterminator termite insulin use: with jail use Diabetes mellitus complication status: without complication Qualified Code(s): E11.9 - Type 2 diabetes mellitus without complications; Z79.4 - exterminator termite (current) use of insulin (6) CAD (coronary artery disease) Qualifiers: Coronary Disease-Associated Artery/Lesion type: [place] artery [place] vs. transplanted heart: [place] heart Associated angina: without angina Qualified Code(s): I25.10 - Atherosclerotic heart disease of [place] coronary artery without angina pectoris (8) Thoracic compression fracture Qualifiers: Encounter type: initial encounter Fracture type: closed Qualified Code(s): S22.000A - [place] compression fracture of unspecified thoracic vertebra, initial encounter for closed fracture
--- NOTE | 2018-12-08 15:25 | Electrocardiograph Report ---
[address] [address] Test Date: 2018-12-08 Pat Name: Sussy Marin Department: 103 Room: [facility] Gender: F Advertising Assistant: : 1935 Requested By: [id number] Order Number: [id number] Reading MD: Chalo Petty Measurements Intervals [place] Rate: 101 P: 102 ND: 96 QRS: 205 QRSD: 136 T: 120 QT: 376 QTc: 434 Interpretive Statements SINUS TACHYCARDIA WITH SHORT ND INTERVAL WITH FREQUENT ECTOPIC PREMATURE COMPLEXES RIGHT BUNDLE BRANCH BLOCK Electronically Signed On 12-08-2018 15:23:15 EST by Chalo Petty
--- NOTE | 2018-12-08 16:16 | Electrocardiograph Report ---
[address] [place], [place] [address] Test Date: 2018-12-07 Pat Name: Sussy Marin Department: [id number] Room: 2S1 Gender: F Chemical Technician: : 1935 Requested By: Audi Aiken Order Number: [id number] Reading MD: Mickey Chapman Measurements Intervals [place] Rate: 97 P: 106 IN: 113 QRS: 223 QRSD: 147 T: 249 QT: 417 QTc: 530 Interpretive Statements Sinus tachycardia with ventricular premature complex Markedly posterior QRS axis RBBB Short IN interval Anteroseptal infarct age indeterminate Electronically Signed On 12-08-2018 16:14:25 EST by Mickey Chapman
[2018-12-08] MEDS: Budesonide/Formoterol 160/4.5 1 PUFF INH IH SCH (20:44)
[2018-12-08] MEDS: Insulin DETEMIR 100 UNIT/ML X5UNITS SQ SCH (23:38)
[2018-12-09] MEDS: Piperacillin/Tazobactam 3.375 GM in 0.9 % Sodium Chloride Mini Bag 100 ML IVPB SCH ×3 (02:58→18:02)
[2018-12-09] MEDS: Ipratropium/Albuterol Neb 3 ML IH SCH (04:23)
[2018-12-09] MEDS: *HR* Enoxaparin 40 MG/0.4 ML SYRINGE SQ SCH (04:31)
[2018-12-09] MEDS: MethylPREDNISolone 40 MG/ML VIAL IVP SCH ×3 (04:31→20:23)
[2018-12-09] MEDS: *HR* OxyCODONE Immed Rel 5 MG TABLET PO PRN ×2 (08:08→16:44)
[2018-12-09] MEDS: Aspirin Enteric Coated 81 MG Tablet PO SCH (08:08)
[2018-12-09] MEDS: Levofloxacin 750 MG/150 ML 750 MG/150 ML BAG IVPB SCH (08:08)
[2018-12-09] MEDS: Insulin LISPRO 300 UNITS/3 ML VIAL SQ SCH ×4 (08:09→21:18)
[2018-12-09] MEDS: *HR* Ticagrelor 90 MG TABLET PO SCH ×2 (08:09→20:23)
[2018-12-09] MEDS ORDERED: Aminoglycoside Consult 1 EACH MC ONE (09:44)
--- NOTE | 2018-12-09 11:17 | Cardiology Progress Note ---
Date of Encounter: 12/09/18 Time of Encounter: 09:30 Assessment and Plan (1) Multifocal pneumonia Current Visit: Yes Status: Acute Per cardiology: -Admitted with multi-focal pneumonia. -On ATB. -Management per primary service. (2) CHF (congestive heart failure) Current Visit: No Status: Acute Per cardiology: -Acute on chronic CHF reports NYHA class III symptoms. -Bilateral pleural effusions noted per CTA. -BNP 1449. -Was given IV lasix 20mg x2 doses. -Mild, non-pitting edema noted. -TTE 11/17/18: LVEF 40-45%. Normal LV chamber size and wall thickness. Asymmetric hypertrophy of the basal septum. mild LVDD, segmental left ventricular systolic dysfunction, normal right ventricular structure and function, mild MR, TR, moderate-severe PH, est RVSP is 55 mmHg; mid inferior lateral and basal inferior lateral perez were hypokinetic -Was on BB outpatient, not on currently due to hypotension. Was not started on fitz/arb due to hypotension. -Will order PRN lasix. Consider resuming daily dosing once BP improved. -Strict i/os, fluid restrictions, daily weights. -Will restart low dose BB, BP improved today. -Consider addition of fitz/arb if able pending BP and clinical course. Qualifiers: Heart failure type: systolic Heart failure chronicity: acute on chronic Qualified Code(s): I50.23 - Acute on chronic systolic (congestive) heart failure (3) Elevated troponin Current Visit: Yes Status: Acute Per cardiology: -Troponins 0.05, 0.04, 0.05x2 in the setting of pneumonia. -Denies chest pain. -No acute ischemic ECG changes noted. -On asa, brilinta, statin. Not currently on BB due to hypotension. -Will repeat limited TTE to assess LVEF and wall motion. -Suspect demand ischemia related to pneumonia. -See CAD (4) CAD (coronary artery disease) Current Visit: Yes Status: Chronic Per cardiology: -Known CAD s/p recent CO. -Patient presented with acute inferior lateral STEMI; taken urgently to the lab courier 11/16/18 and underwent PCI to occluded LCx. On 11/20/18 planned staged PCI to the RCA completed, patient also seen to have stenosis distal to LCX stent not previously seen (likely due to clot burden) that was intervened on. There is a 70% stenosis in the mLAD remaining. -ON asa, brilinta, statin. Not on BB currently due to hypotension. -Discussed at length with patient regarding staged PCI inpatient. Patient adamently refuses at this time. States she may consider as outpatient in the future. -If no significant change on Limited TTE, cardiology will sign off and will arrange outpatient follow up. Qualifiers: Coronary Disease-Associated Artery/Lesion type: [place] artery [place] vs. transplanted heart: [place] heart Associated angina: without angina Qualified Code(s): I25.10 - Atherosclerotic heart disease of [place] coronary artery without angina pectoris Discussion w patient/family: The assessment and plan as outlined above was discussed with the patient who expressed understanding and agreement. All questions were answered. Thank you for involving us in the care of your patient. Please call with any questions. Discussed and reviewed with . Subjective Principal diagnosis: Pneumonia Interval history: Patient reports symptom improvement today. Reports still more short of breath than baseline, however improving. Objective Vital Signs, Last 4 Hours Temp Pulse Resp BP Pulse Ox 12/09/18 10:13 98.4 F 103 16 95/71 99 General: Conversant, Other (Mild conversational dyspnea noted. ) HEENT: Atraumatic, Normocephaly, Mucus Membranes Moist Neck: No JVD, Normal carotid pulses Cardiac: Reg Rate and Rhythm, Normal S1 and S2, No Murmur Lungs: Other (Lung sounds coarse throughout. ) Neuro: Alert and responsive, No focal deficits noted Abdomen: Soft, Non-Tender Skin: No rashes noted on visualized skin Musculoskeletal: No Chest Wall Tenderness Extremities: No Clubbing, No Cyanosis, Normal Pulses, Other (Mild bilateral pedal edema, non-pitting. ) Results 12/08/18 00:21 12/08/18 00:21 Impressions Chest X-Ray 12/08/18 00:01 IMPRESSION: Stable exam with patchy areas of consolidation to the lungs bilaterally with upper lobe predominance which may be on the basis of multifocal pneumonia. Other etiologies not excluded. Continued follow-up recommended. D/ / 12/08/2018 11:41:58 Magdiel Stark MD / Yadi Mendes Interpreting Provider: Magdiel Stark MD Active Medications Albuterol/Ipratropium (Duoneb) 3 ml IH [id number] [facility] Stop: 06/09/19 00:01 Last Admin: 12/09/18 04:23 Dose: 3 ml Aspirin (Aspirin Ec) 81 mg PO DAILY [facility] Stop: 06/09/19 09:01 Last Admin: 12/09/18 08:08 Dose: 81 mg Budesonide/Formoterol Fumarate (Symbicort) 2 puff IH BIDR [facility]; Protocol Stop: 06/09/19 22:01 Last Admin: 12/08/18 20:44 Dose: 2 puff Dextrose/Water (Dextrose 50% (Syg)) 25 ml IVP AD PRN PRN Reason: Hypoglycemia Stop: 06/08/19 09:52 Enoxaparin Sodium (Lovenox) 40 mg SQ 0600 [facility]; Protocol Stop: 06/09/19 06:01 Last Admin: 12/09/18 04:31 Dose: 40 mg Furosemide (Lasix) 20 mg PO DAILY PRN PRN Reason: Edema Stop: 06/09/19 11:21 Glucagon (Glucagen) 1 mg IM ONCE PRN PRN Reason: Hypoglycemia Stop: 06/08/19 09:52 Glucose (Gluctose) 15 gm PO ONCE PRN PRN Reason: Hypoglycemia Stop: 06/08/19 09:52 Glucose (Gluctose) 30 gm PO ONCE PRN PRN Reason: Hypoglycemia Stop: 06/08/19 09:52 Dextrose (Dextrose 5%) 1,000 mls @ 100 mls/hr IVC .Q10H PRN PRN Reason: HYPOGLYCEMIA Stop: 06/08/19 09:52 Levofloxacin/Dextrose (Levaquin Premix 750mg/150 Ml) 750 mg in 150 mls @ 100 mls/hr IVPB DAILY [facility]; Protocol Stop: 06/09/19 09:01 Last Infusion: 12/09/18 09:44 Dose: Infused Piperacillin Sod/Tazobactam (Sod 3.375 gm/ Sodium Chloride) 100 mls @ 25 mls/hr IVPB Q8H [facility] Stop: 06/09/19 02:01 Last Admin: 12/09/18 09:58 Dose: 25 mls/hr Insulin Detemir (Levemir) 5 unit SQ HS [facility] Stop: 06/08/19 21:01 Last Admin: 12/08/18 23:38 Dose: 5 unit Insulin Human Lispro (Humalog) 0 units SQ HS [facility]; Protocol Stop: 06/08/19 21:01 Last Admin: 12/08/18 21:54 Dose: 2 units Insulin Human Lispro (Humalog) 0 units SQ TIDAC [facility]; Protocol Stop: 06/08/19 11:31 Last Admin: 12/09/18 08:09 Dose: 4 units Levalbuterol HCl (Xopenex) 1.25 mg IH [id number] [facility] Stop: 06/10/19 10:01 Methylprednisolone (Solu-Medrol) 40 mg IVP Q8H [facility] Stop: 06/09/19 12:01 Last Admin: 12/09/18 04:31 Dose: 40 mg Naloxone HCl (Narcan) 0.4 mg IVP Q2MIN PRN PRN Reason: SEE COMMENTS Stop: 06/08/19 09:50 Oxycodone HCl (Roxicodone) 5 mg PO Q6HR PRN; Protocol PRN Reason: Pain Stop: 06/08/19 11:32 Last Admin: 12/09/18 08:08 Dose: 5 mg Rosuvastatin Calcium (Crestor) 20 mg PO HS [facility] Stop: 06/08/19 21:01 Last Admin: 12/08/18 21:47 Dose: 20 mg Sodium Chloride (Gray Nasal [place]) 2 spray NS Q2H PRN PRN Reason: Congestion Stop: 06/08/19 22:29 Last Admin: 12/07/18 23:18 Dose: 2 spray Ticagrelor (Brilinta) 90 mg PO BID [facility] Stop: 06/08/19 21:01 Last Admin: 12/09/18 08:09 Dose: 90 mg - Imaging and Cardiology Chest Xray: report reviewed Echo: report reviewed Cardiac cath: report reviewed - EKG Interpretation EKG results cardiology: other (Telemetry reviewed with average HR previous 12 hours noted to be 111, ST. PVCs, couplets, PACs noted.) Consult Discharge Plan - Plan Referrals: Linnea Quintero DO [Primary Care Provider] - 12/09/18 1:30 pm
[2018-12-09] MEDS: Levalbuterol Neb 1.25 MG/3 ML IH SCH ×3 (11:34→21:38)
[2018-12-09] MEDS: Budesonide/Formoterol 160/4.5 1 PUFF INH IH SCH ×2 (11:34→21:36)
[2018-12-09] MEDS: Metoprolol XL (24 HR) Succ 25 MG TAB.ER.24H PO SCH (12:05)
--- NOTE | 2018-12-09 14:37 | Internal Med Progress Note ---
Hospitalist Progress Note - Encounter Date of Encounter: 12/09/18 Time of Encounter: 12:05 - Subjective Interval History: Patient overall feels much better as far as her breathing is concerned. Denies any new fevers or chills at this time. - Exam Vitals: Temp Pulse Resp BP Pulse Ox 98.4 F 103 16 95/71 99 12/09/18 10:13 12/09/18 10:13 12/09/18 11:35 12/09/18 10:13 12/09/18 11:35 Exam: GENERAL: Alert, minimal distress, cooperative EYES: PERRLA, EOMILUNGS: Scattered crackles bilaterally CARDIAC: Normal S1 and S2; no rubs, murmurs, or gallops ABDOMEN: Abdomen soft, non-tender, BS normal, No masses or organomegaly EXTREMITIES: Extremities normal, no deformities, edema, clubbing or skin discoloration. Good capillary refill., No ulcers NEURO: Gait not tested. Reflexes normal and symmetric. Sensation grossly intact, Cranial nerves II-XII intact PULSES: 2+ radial, 2+ carotid Rest of the exam is non contributory - Assessment and Plan (1) DVT prophylaxis Current Visit: No Status: Acute Assessment and Plan: lovenox (2) Chest pain Current Visit: Yes Status: Acute Assessment and Plan: Appreciate cardiology consultation. The patient has had recent PCI but still has a residual mid LAD lesions. She will eventually need to undergo cardiac catheter but currently the treatment of her hospital-acquired pneumonia is what precludes her from undergoing further cardiac workup. Discussed in detail with cardiology. Continue on dual antiplatelet therapy for her prior stents Patient currently denies any chest pain and most of her symptoms are related to her pneumonia. 12/09-patient has had extensive cardiac workup and underwent PCI. C points above. At this point she does have 70% stenosis of the mid LAD which is remaining. Patient has been discussed cardiac catheter again and patient has been refusing. Cardiology is ordering limited TTE and assess LV EF and wall motion. If those are normal then they will follow up as an outpatient, if abnormal then she may need a cardiac catheter while inpatient. She is to continue on aspirin and Dilantin and statin for now. Beta scott currently was on hold hold due to hypotension. Might resume today. (3) Acute systolic congestive heart failure Current Visit: No Status: Acute Assessment and Plan: EF 30% per LV gram, repeat TTE showed EF 40-45% and mild diastolic dysfunction. Chest CTA with small bilateral pleural effusions. Appears mildly overloaded with dyspnea, rails on exam and lower extremity edema. Leading home Lasix. Give one-time dose IV Lasix. Strict I&Os, daily weights. Defer further diuresis to oncoming hospitalist/cardiology as patient only appears mildly overloaded and BP soft/borderline. 12/08-and currently improving after Lasix. Continue strict intake and output. We will follow cardiology recommendations. 12/09-continue Lasix. Cardiology following. Echo pending. (4) Multifocal pneumonia Current Visit: Yes Status: Acute Assessment and Plan: Chest CTA showed multifocal PNA. No elevated WBC, afebrile. Does not appear acute or toxic. Recieved IV vanco, zosyn and azithromycin in ED. de-escalate antibiotic to Levaquin only. Urinary antigens, respiratory PCR and sputum cul ture pending. Will need repeat imaging in 8 weeks to confirm resolution. 12/08-continue broad-spectrum antibiotics. Pulmonary medicine consulted given the patient's history of COPD most likely we are dealing with health care acquired pneumonia. Await cultures. The patient has been weaned from BiPAP and is doing better on nasal cannula. Continue to titrate 12/09-patient was in acute hypoxic respiratory failure most likely secondary to multifocal pneumonia in addition to his asthma exacerbation complicating acute systolic heart failure. She has been improving significantly and is currently on 4 L of oxygen. Appreciate pulmonary follow-up She will continue on IV steroids while in house and we will eventually switch to a prolonged steroid taper. Continue to wean oxygen down. Cultures are so far negative. She will eventually need an Augmentin antibiotic course for a total of 7-10 days. Repeat CAT scan in 4-7 weeks to demonstrate resolution of her opacities. (5) Diabetes Current Visit: Yes Status: Acute Assessment and Plan: Continue sliding scale insulin and serial Accu-Cheks. (6) CAD (coronary artery disease) Current Visit: Yes Status: Chronic Assessment and Plan: presented as a STEMI on 11/16/18 and was taken urgently to the laboratory animal caretaker and underwent PCI to occluded LCx. On 11/20/18 planned staged PCI to the RCA completed, patient also seen to have stenosis distal to LCX stent not previously seen (likely due to clot burden) that was intervened on. There was a 70% stenosis in the mLAD remaining and medical management was recommended. With chest pain as noted above. Cont home ASA, brilinta, statin. Cardiology consulted beta scott was held due to hypotension 12/08-appreciate cardiology consult. Continue to monitor closely. She has residual LAD disease which will need to be treated at some point once her pneumonia gets better. 12/09-see plan above. (7) Lower extremity edema Current Visit: Yes Status: Acute (8) Thoracic compression fracture Current Visit: Yes Status: Acute Assessment and Plan: Continue current Pain control . Patient is not complaining of severe pain symptoms at this point. - Time Spent with Patient Total time spent is greater than 50% in coordination of care (as documented) at patient's floor/unit and/or counseling patient: Greater than 35 minutes Plan of Care Discussed with: patient (Greater than 50% time spent in eatr-mg-nivr counseling.) Internal Medicine: Result - Labs CBC & Chem 7: 12/08/18 00:21 12/08/18 00:21 - ABG Interpretation ABG results: ABG ABG pH 7.53 pH Units (7.32-7.45) H 12/08/18 00:23 ABG pCO2 30 mmHg (35-45) L 12/08/18 00:23 ABG pO2 62 mmHg (85-104) L 12/08/18 00:23 ABG O2 Saturation 94 % (95-98) L 12/08/18 00:23 PT/INR, D-dimer D-Dimer 887 ng/mLFEU (0-500) H 12/07/18 07:35 - Impressions Impressions Echocardiogram Limited Views 12/08/18 08:47 Impressions: LVEF 50%. Mild LV segmental wall motion abnormality involving the anterolateral wall. Normal right ventricular structure and function. Left Ventricular Wall Motion: Rest Echo Findings The mid anterior lateral and basal anterior lateral perez were hypokinetic. The mid inferior lateral and basal inferior lateral perez were not visualized. All other wall segments showed normal motion. Findings: Study Quality * Technically adequate exam. ECG Findings * Sinus tachycardia. Left Ventricle * LVEF 50%. * Basal sigmoid septum. * LV chamber size not well measured in the PLAX view. Right Ventricle * Normal right ventricular structure and function. Aorta * Not well visualized. Consult Discharge Plan - Plan Referrals: Linnea Quintero DO [Primary Care Provider] - 12/09/18 1:30 pm (2) Chest pain Qualifiers: Chest pain type: unspecified Qualified Code(s): R07.9 - Chest pain, unspecified (5) Diabetes Qualifiers: Diabetes mellitus type: type 2 Diabetes mellitus alf insulin use: with termite exterminator use Diabetes mellitus complication status: without complication Qualified Code(s): E11.9 - Type 2 diabetes mellitus without complications; Z79.4 - [facility] (current) use of insulin (6) CAD (coronary artery disease) Qualifiers: Coronary Disease-Associated Artery/Lesion type: [place] artery [place] vs. transplanted heart: [place] heart Associated angina: without angina Qualified Code(s): I25.10 - Atherosclerotic heart disease of [place] coronary artery without angina pectoris (8) Thoracic compression fracture Qualifiers: Encounter type: initial encounter Fracture type: closed Qualified Code(s): S22.000A - Wedge compression fracture of unspecified thoracic vertebra, initial encounter for closed fracture
[2018-12-09] MEDS: Insulin DETEMIR 100 UNIT/ML X5UNITS SQ SCH (21:18)
[2018-12-10] MEDS: Piperacillin/Tazobactam 3.375 GM in 0.9 % Sodium Chloride Mini Bag 100 ML IVPB SCH ×3 (02:54→17:42)
[2018-12-10] MEDS: Levalbuterol Neb 1.25 MG/3 ML IH SCH ×4 (04:15→22:57)
[2018-12-10] MEDS: MethylPREDNISolone 40 MG/ML VIAL IVP SCH ×2 (04:53→10:36)
[2018-12-10] MEDS: *HR* Enoxaparin 40 MG/0.4 ML SYRINGE SQ SCH (04:53)
[2018-12-10 05:16] LABS: Hematocrit 27.8 % (35.3-44.9); Hemoglobin 8.8 g/dL (11.5-15.4); Immature Granulocytes % 0.5 % (0-4); Lymphocytes # 0.3 K/mcL (0.6-4.6); Lymphocytes % 2.4 %; Mean Corpuscular HGB Conc 31.7 g/dL (31.6-35.5); Mean Corpuscular Hemoglobin 29.1 pg (28.0-33.3); Mean Corpuscular Volume 92.1 fL (83.0-100.0); Mean Platelet Volume 10.8 fL (9.4-12.4); Monocytes # 0.6 K/mcL (0.0-1.3); Monocytes % 4.2 %; Platelet Count 270 K/mcL (140-400); Red Blood Count 3.02 M/mcL (3.82-4.97); Red Cell Distribution Width 14.9 % (11.5-14.5); Segmented Neutrophils % 92.9 %
[2018-12-10 05:34] LABS: Alanine Aminotransferase 16 Units/L (7-52); Albumin 3.3 g/dL (3.5-5.7); Albumin/Globulin Ratio 1.1 (1.1-2.2); Alkaline Phosphatase 76 Units/L (34-104); Aspartate Amino Transferase 16 Units/L (13-39); BUN/Creatinine Ratio 26 (6-26); Bilirubin,Total 0.4 mg/dL (0.3-1.0); Blood Urea Nitrogen 19 mg/dL (8-23); Calcium 9.4 mg/dL (8.6-10.3); Carbon Dioxide 25 mEq/L (23-29); Chloride 102 mEq/L (98-107); Globulin 2.9 g/dL (2.4-3.5); Glucose 238 mg/dL (70-105); Osmolality,Calculated 292 (280-300); Potassium 3.7 mEq/L (3.5-5.1); Sodium 136 mEq/L (136-145); Total Protein 6.2 g/dL (6.4-8.9); eGFR For Non-African Americans > 60 (> 60)
[2018-12-10] MEDS: Levofloxacin 750 MG/150 ML 750 MG/150 ML BAG IVPB SCH (08:54)
[2018-12-10] MEDS: Aspirin Enteric Coated 81 MG Tablet PO SCH (08:54)
[2018-12-10] MEDS: Metoprolol XL (24 HR) Succ 25 MG TAB.ER.24H PO SCH (08:54)
[2018-12-10] MEDS: *HR* Ticagrelor 90 MG TABLET PO SCH ×2 (08:55→20:39)
[2018-12-10] MEDS: *HR* OxyCODONE Immed Rel 5 MG TABLET PO PRN ×2 (08:59→22:13)
[2018-12-10] MEDS: Insulin LISPRO 300 UNITS/3 ML VIAL SQ SCH ×4 (09:02→22:13)
[2018-12-10] MEDS ORDERED: MOM Conc 10 ML UD.LIQ PO ONE (10:24)
[2018-12-10] MEDS: Budesonide/Formoterol 160/4.5 1 PUFF INH IH SCH ×2 (10:41→22:57)
--- NOTE | 2018-12-10 11:02 | Internal Med Progress Note ---
Hospitalist Progress Note - Encounter Date of Encounter: 12/10/18 Time of Encounter: 11:00 - Subjective Interval History: Patient overall feels much better as far as her breathing is concerned. Feels weak. She has lost her and her home recently and has no safe place to go. Her nephew is working on an arrangement. she feels distressed from that - Exam Vitals: Temp Pulse Resp BP Pulse Ox 98.4 F 101 20 126/81 97 12/10/18 09:13 12/10/18 09:13 12/10/18 10:44 12/10/18 09:13 12/10/18 10:44 Exam: GENERAL: Alert, minimal distress, cooperative EYES: PERRLA, EOMILUNGS: Scattered crackles bilaterally CARDIAC: Normal S1 and S2; no rubs, murmurs, or gallops ABDOMEN: Abdomen soft, non-tender, BS normal, No masses or organomegaly EXTREMITIES: Extremities normal, no deformities, edema, clubbing or skin discoloration. Good capillary refill., No ulcers NEURO: Gait not tested. Reflexes normal and symmetric. Sensation grossly intact, Cranial nerves II-XII intact PULSES: 2+ radial, 2+ carotid Rest of the exam is non contributory - Assessment and Plan (1) DVT prophylaxis Current Visit: No Status: Acute Assessment and Plan: lovenox (2) Chest pain Current Visit: Yes Status: Acute Assessment and Plan: Appreciate cardiology consultation. The patient has had recent PCI but still has a residual mid LAD lesions. She will eventually need to undergo cardiac catheter but currently the treatment of her hospital-acquired pneumonia is what precludes her from undergoing further cardiac workup. Discussed in detail with cardiology. Continue on dual antiplatelet therapy for her prior stents Patient currently denies any chest pain and most of her symptoms are related to her pneumonia. 12/09-patient has had extensive cardiac workup and underwent PCI. C points above. At this point she does have 70% stenosis of the mid LAD which is remaining. Patient has been discussed cardiac catheter again and patient has been refusing. Cardiology is ordering limited TTE and assess LV EF and wall motion. If those are normal then they will follow up as an outpatient, if abnormal then she may need a cardiac catheter while inpatient. She is to continue on aspirin and Dilantin and statin for now. Beta scott currently was on hold hold due to hypotension. Might resume today. 12/10-BP better. will resume her on BB. Lasix will also be started since this was recommended by cards. Will reach out to them for a plan for MLAD lesion now. patients is agreeable to cath by has questions. Discussed with RN as well (3) Acute systolic congestive heart failure Current Visit: No Status: Acute Assessment and Plan: EF 30% per LV gram, repeat TTE showed EF 40-45% and mild diastolic dysfunction. Chest CTA with small bilateral pleural effusions. Appears mildly overloaded with dyspnea, rails on exam and lower extremity edema. Leading home Lasix. Give one-time dose IV Lasix. Strict I&Os, daily weights. Defer further diuresis to oncoming hospitalist/cardiology as patient only appears mildly overloaded and BP soft/borderline. 12/08-and currently improving after Lasix. Continue strict intake and output. We will follow cardiology recommendations. 12/09-continue Lasix. Cardiology following. Echo pending. 12/10-Start Oral lasix today. keep monitoring I&O (4) Multifocal pneumonia Current Visit: Yes Status: Acute Assessment and Plan: Chest CTA showed multifocal PNA. No elevated WBC, afebrile. Does not appear acute or toxic. Recieved IV vanco, zosyn and azithromycin in ED. de-escalate antibiotic to Levaquin only. Urinary antigens, respiratory PCR and sputum cult ure pending. Will need repeat imaging in 8 weeks to confirm resolution. 12/08-continue broad-spectrum antibiotics. Pulmonary medicine consulted given the patient's history of COPD most likely we are dealing with health care acquired pneumonia. Await cultures. The patient has been weaned from BiPAP and is doing better on nasal cannula. Continue to titrate 12/09-patient was in acute hypoxic respiratory failure most likely secondary to multifocal pneumonia in addition to his asthma exacerbation complicating acute systolic heart failure. She has been improving significantly and is currently on 4 L of oxygen. Appreciate pulmonary follow-up She will continue on IV steroids while in house and we will eventually switch to a prolonged steroid taper. Continue to wean oxygen down. Cultures are so far negative. She will eventually need an Augmentin antibiotic course for a total of 7-10 days. Repeat CAT scan in 4-7 weeks to demonstrate resolution of her opacities. 12/10-continue IV Abx. continue to wean O2. (5) Diabetes Current Visit: Yes Status: Acute Assessment and Plan: Continue sliding scale insulin and serial Accu-Cheks. (6) CAD (coronary artery disease) Current Visit: Yes Status: Chronic Assessment and Plan: presented as a STEMI on 11/16/18 and was taken urgently to the ammunition assembly i laborer and und erwent PCI to occluded LCx. On 11/20/18 planned staged PCI to the RCA completed, patient also seen to have stenosis distal to LCX stent not previously seen (likely due to clot burden) that was intervened on. There was a 70% stenosis in the mLAD remaining and medical management was recommended. With chest pain as noted above. Cont home ASA, brilinta, statin. Cardiology consulted beta scott was held due to hypotension 12/08-appreciate cardiology consult. Continue to monitor closely. She has re sidual LAD disease which will need to be treated at some point once her pneumonia gets better. 12/09-see plan above. (7) Lower extremity edema Current Visit: Yes Status: Acute Assessment and Plan: In the setting of acute CHF exacerbation however edema is asymmetrical; left greater than right. With recent extended hospitalization/immobility will check bilateral lower extremity venous Dopplers. (8) Thoracic compression fracture Current Visit: Yes Status: Acute - Time Spent with Patient Total time spent is greater than 50% in coordination of care (as documented) at patient's floor/unit and/or counseling patient: Greater than 35 minutes Plan of Care Discussed with: patient Internal Medicine: Result - Labs CBC & Chem 7: 12/10/18 04:54 12/10/18 04:54 Labs: Short CBC 12/10/18 Range/Units 04:54 WBC 13.0 H (4.3-11.1) K/mcL Hgb 8.8 L (11.5-15.4) g/dL Hct 27.8 L (35.3-44.9) % Plt Count 270 (140-400) K/mcL Neutrophils # 12.0 H (1.6-8.9) K/mcL BMP 12/10/18 04:54 Sodium 136 Potassium 3.7 Chloride 102 Carbon Dioxide 25 BUN 19 Creatinine 0.73 Glucose 238 H Calcium 9.4 Liver Function 12/10/18 Range/Units 04:54 Total Bilirubin 0.4 (0.3-1.0) mg/dL AST 16 (13-39) Units/L ALT 16 (7-52) Units/L Alkaline Phosphatase 76 (34-104) Units/L Albumin 3.3 L (3.5-5.7) g/dL - ABG Interpretation ABG results: ABG ABG pH 7.53 pH Units (7.32-7.45) H 12/08/18 00:23 ABG pCO2 30 mmHg (35-45) L 12/08/18 00:23 ABG pO2 62 mmHg (85-104) L 12/08/18 00:23 ABG O2 Saturation 94 % (95-98) L 12/08/18 00:23 PT/INR, D-dimer D-Dimer 887 ng/mLFEU (0-500) H 12/07/18 07:35 - Impressions Impressions Echocardiogram Limited Views 12/08/18 08:47 Impressions: LVEF 50%. Mild LV segmental wall motion abnormality involving the anterolateral wall. Normal right ventricular structure and function. Left Ventricular Wall Motion: Rest Echo Findings The mid anterior lateral and basal anterior lateral perez were hypokinetic. The mid inferior lateral and basal inferior lateral perez were not visualized. All other wall segments showed normal motion. Findings: Study Quality * Technically adequate exam. ECG Findings * Sinus tachycardia. Left Ventricle * LVEF 50%. * Basal sigmoid septum. * LV chamber size not well measured in the PLAX view. Right Ventricle * Normal right ventricular structure and function. Aorta * Not well visualized. Consult Discharge Plan - Plan Referrals: Linnea Quintero DO [Primary Care Provider] - 12/09/18 1:30 pm ___ (2) Chest pain Qualifiers: Chest pain type: unspecified Qualified Code(s): R07.9 - Chest pain, unspecified (5) Diabetes Qualifiers: Diabetes mellitus type: type 2 Diabetes mellitus ostomy care nurse insulin use: with residential use Diabetes mellitus complication status: without complication Qualified Code(s): E11.9 - Type 2 diabetes mellitus without complications; Z79.4 - nursing home (current) use of insulin (6) CAD (coronary artery disease) Qualifiers: Coronary Disease-Associated Artery/Lesion type: [place] artery [place] vs. transplanted heart: [place] heart Associated angina: without angina Qualified Code(s): I25.10 - Atherosclerotic heart disease of [place] coronary artery without angina pectoris (8) Thoracic compression fracture Qualifiers: Encounter type: initial encounter Fracture type: closed Qualified Code(s): S22.000A - [place] compression fracture of unspecified thoracic vertebra, initial encounter for closed fracture
[2018-12-10] MEDS ORDERED: Furosemide 20 MG TABLET PO PRN (11:09)
--- NOTE | 2018-12-10 13:49 | Cardiology Progress Note ---
Date of Encounter: 12/10/18 Time of Encounter: 13:00 Assessment and Plan (1) Multifocal pneumonia Current Visit: Yes Status: Acute Per cardiology: -Admitted with multi-focal pneumonia. -On ATB. -Management per primary service. (2) CHF (congestive heart failure) Current Visit: No Status: Acute Per cardiology: -Acute on chronic CHF reports NYHA class III symptoms. -Bilateral pleural effusions noted per CTA. -BNP 1449. -Was given IV lasix 20mg x2 doses. -TTE 11/17/18: LVEF 40-45%. Normal LV chamber size and wall thickness. Asymmetric hypertrophy of the basal septum. mild LVDD, segmental left ventricular systolic dysfunction, normal right ventricular structure and functi on, mild MR, TR, moderate-severe PH, est RVSP is 55 mmHg; mid inferior lateral and basal inferior lateral perez were hypokinetic -Limited TTE with LVEF 50%. -On BB. Was not started on fitz/arb due to hypotension. -Will order PRN lasix. Consider resuming daily dosing once BP improved. -Strict i/os, fluid restrictions, daily weights. -Will increase BB. -Consider addition of fitz/arb if able pending BP and clinical course. Qualifiers: Heart failure type: systolic Heart failure chronicity: acute on chronic Qualified Code(s): I50.23 - Acute on chronic systolic (congestive) heart failure (3) Elevated troponin Current Visit: Yes Status: Acute Per cardiology: -Troponins 0.05, 0.04, 0.05x2 in the setting of pneumonia. -Denies chest pain. -No acute ischemic ECG changes noted. -On asa, brilinta, statin. Not currently on BB due to hypotension. -Limited TTE with LVEF 50%, improved from previous. -Demand ischemia related to pneumonia. NO cardiac rehab consult warranted. -See CAD (4) CAD (coronary artery disease) Current Visit: Yes Status: Chronic Per cardiology: -Known CAD s/p recent MD. -Patient presented with acute inferior lateral STEMI; taken urgently to the photographic laboratory supervisor 11/16/18 and underwent PCI to occluded LCx. On 11/20/18 planned staged PCI to the RCA completed, patient also seen to have stenosis distal to LCX stent not previously seen (likely due to clot burden) that was intervened on. There is a 70% stenosis in the mLAD remaining. -ON asa, brilinta, statin. Not on BB currently due to hypotension. -Discussed at length with patient regarding staged PCI inpatient. Patient refused C with staged PCI at this time. Risks versus benefits of Staged PCI explained at length with patient. Patient states "I am too old and too weak to undergo another procedure." Message sent to regarding patient's wishes. If patient would like to proceed with C inpatient, please re-consult. Otherwise, patient has OP cardology follow up. Can consider OP staged PCI if patient would like to proceed at that time. Qualifiers: Coronary Disease-Associated Artery/Lesion type: [place] artery [place] vs. transplanted heart: [place] heart Associated angina: without angina Qualified Code(s): I25.10 - Atherosclerotic heart disease of [place] coronary artery without angina pectoris Discussion w patient/family: The assessment and plan as outlined above was discussed with the patient who expressed understanding and agreement. All questions were answered. Thank you for involving us in the care of your patient. Please call with any questions. Discussed and reviewed with . Subjective Principal diagnosis: Pneumonia Interval history: Patient reports symptom improvement today. Reports still more short of breath than baseline, however improving. Denies chest pain. Objective Vital Signs, Last 4 Hours Temp Pulse Resp BP Pulse Ox 12/10/18 12:40 98.3 F 103 20 107/72 90 12/10/18 10:44 20 97 General: Conversant, Other (Mild conversational dyspnea noted. ) HEENT: Atraumatic, Normocephaly, Mucus Membranes Moist Neck: No JVD, Normal carotid pulses Cardiac: Reg Rate and Rhythm, Normal S1 and S2, No Murmur Lungs: Other (Lung sounds coarse to bilateral bases. ) Neuro: Alert and responsive, No focal deficits noted Abdomen: Soft, Non-Tender Skin: No rashes noted on visualized skin Musculoskeletal: No Chest Wall Tenderness Extremities: No Clubbing, No Cyanosis, No Edema, Normal Pulses Results 12/10/18 04:54 12/10/18 04:54 Lab Results Active Medications Albuterol/Ipratropium (Duoneb) 3 ml IH [id number] [facility] Stop: 06/09/19 00:01 Last Admin: 12/09/18 04:23 Dose: 3 ml Aspirin (Aspirin Ec) 81 mg PO DAILY DAMIEN Stop: 06/09/19 09:01 Last Admin: 12/10/18 08:54 Dose: 81 mg Budesonide/Formoterol Fumarate (Symbicort) 2 puff IH BIDR DAMIEN; Protocol Stop: 06/09/19 22:01 Last Admin: 12/10/18 10:41 Dose: 2 puff Dextrose/Water (Dextrose 50% (Syg)) 25 ml IVP AD PRN PRN Reason: Hypoglycemia Stop: 06/08/19 09:52 Docusate Sodium (Colace) 100 mg PO BID PRN; Protocol PRN Reason: Constipation Stop: 06/10/19 12:14 Last Admin: 12/09/18 16:45 Dose: 100 mg Enoxaparin Sodium (Lovenox) 40 mg SQ 0600 DAMIEN; Protocol Stop: 06/09/19 06:01 Last Admin: 12/10/18 04:53 Dose: 40 mg Furosemide (Lasix) 20 mg PO DAILY PRN PRN Reason: Edema Stop: 06/09/19 11:21 Glucagon (Glucagen) 1 mg IM ONCE PRN PRN Reason: Hypoglycemia Stop: 06/08/19 09:52 Glucose (Gluctose) 15 gm PO ONCE PRN PRN Reason: Hypoglycemia Stop: 06/08/19 09:52 Glucose (Gluctose) 30 gm PO ONCE PRN PRN Reason: Hypoglycemia Stop: 06/08/19 09:52 Dextrose (Dextrose 5%) 1,000 mls @ 100 mls/hr IVC .Q10H PRN PRN Reason: HYPOGLYCEMIA Stop: 06/08/19 09:52 Levofloxacin/Dextrose (Levaquin Premix 750mg/150 Ml) 750 mg in 150 mls @ 100 mls/hr IVPB DAILY DAMIEN; Protocol Stop: 06/09/19 09:01 Last Admin: 12/10/18 08:54 Dose: 150 mls/hr Piperacillin Sod/Tazobactam (Sod 3.375 gm/ Sodium Chloride) 100 mls @ 25 mls/hr IVPB Q8H [facility]IEN Stop: 06/09/19 02:01 Last Admin: 12/10/18 10:35 Dose: 25 mls/hr Insulin Detemir (Levemir) 5 unit SQ HS [facility] Stop: 06/08/19 21:01 Last Admin: 12/09/18 21:18 Dose: 5 unit Insulin Human Lispro (Humalog) 0 units SQ HS [facility]; Protocol Stop: 06/08/19 21:01 Last Admin: 12/09/18 21:18 Dose: 4 units Insulin Human Lispro (Humalog) 0 units SQ TIDAC [facility]; Protocol Stop: 06/08/19 11:31 Last Admin: 12/10/18 12:12 Dose: 8 units Levalbuterol HCl (Xopenex) 1.25 mg IH [id number] [facility] Stop: 06/10/19 10:01 Last Admin: 12/10/18 10:40 Dose: 1.25 mg Metoprolol Succinate (Toprol Xl) 12.5 mg PO DAILY [facility] Stop: 06/10/19 11:31 Last Admin: 12/10/18 08:54 Dose: 12.5 mg Naloxone HCl (Narcan) 0.4 mg IVP Q2MIN PRN PRN Reason: SEE COMMENTS Stop: 06/08/19 09:50 Oxycodone HCl (Roxicodone) 5 mg PO Q6HR PRN; Protocol PRN Reason: Pain Stop: 06/08/19 11:32 Last Admin: 12/10/18 08:59 Dose: 5 mg Prednisone (Prednisone) 60 mg PO DAILY [facility] Stop: 06/12/19 09:01 Rosuvastatin Calcium (Crestor) 20 mg PO [facility] Stop: 06/08/19 21:01 Last Admin: 12/09/18 20:23 Dose: 20 mg Sodium Chloride ([place]al [place]) 2 spray NS Q2H PRN PRN Reason: Congestion Stop: 06/08/19 22:29 Last Admin: 12/07/18 23:18 Dose: 2 spray Ticagrelor (Brilinta) 90 mg PO BID [facility] Stop: 06/08/19 21:01 Last Admin: 12/10/18 08:55 Dose: 90 mg Laboratory Tests 12/10/18 12/10/18 04:54 04:54 WBC 13.0 H Hgb 8.8 L Creatinine 0.73 - Imaging and Cardiology Chest Xray: report reviewed Echo: report reviewed Cardiac cath: report reviewed - EKG Interpretation EKG results cardiology: other (Telemetry reviewed with average HR previous 12 hours noted to be 105, ST. PVCs, PACs noted.) Consult Discharge Plan - Plan Referrals: Linnea Quintero DO [Primary Care Provider] - 12/09/18 1:30 pm
[2018-12-10 18:14] LABS: QuantiFERON Mitogen minus NIL 4.84 IU/mL
[2018-12-10] MEDS: Insulin DETEMIR 100 UNIT/ML X5UNITS SQ SCH (22:27)
[2018-12-11] MEDS: Piperacillin/Tazobactam 3.375 GM in 0.9 % Sodium Chloride Mini Bag 100 ML IVPB SCH ×3 (02:14→16:42)
[2018-12-11] MEDS: Levalbuterol Neb 1.25 MG/3 ML IH SCH ×4 (03:56→22:32)
[2018-12-11] MEDS: *HR* Enoxaparin 40 MG/0.4 ML SYRINGE SQ SCH (05:45)
[2018-12-11] MEDS ORDERED: Melatonin 3 MG TABLET PO PRN (09:36)
[2018-12-11 09:51] LABS: QuantiFERON NIL 0.03 IU/mL; QuantiFERON-TB Gold In-Tube NEGATIVE
[2018-12-11] MEDS: Levofloxacin 750 MG/150 ML 750 MG/150 ML BAG IVPB SCH (10:12)
[2018-12-11] MEDS: predniSONE 20 MG TABLET PO SCH (10:14)
[2018-12-11] MEDS: *HR* Ticagrelor 90 MG TABLET PO SCH ×2 (10:14→20:52)
[2018-12-11] MEDS: Metoprolol XL (24 HR) Succ 25 MG TAB.ER.24H PO SCH (10:14)
[2018-12-11] MEDS: Aspirin Enteric Coated 81 MG Tablet PO SCH (10:14)
[2018-12-11] MEDS: *HR* OxyCODONE Immed Rel 5 MG TABLET PO PRN ×3 (10:14→22:59)
[2018-12-11] MEDS: Insulin LISPRO 300 UNITS/3 ML VIAL SQ SCH ×4 (10:15→20:54)
[2018-12-11] MEDS: Budesonide/Formoterol 160/4.5 1 PUFF INH IH SCH ×2 (11:18→22:32)
--- NOTE | 2018-12-11 13:49 | Internal Med Progress Note ---
Hospitalist Progress Note - Encounter Date of Encounter: 12/11/18 Time of Encounter: 11:00 - Subjective Interval History: Overall doing better as far as bleeding. She does feel weak overall. She is under stress with her home situation. - Exam Vitals: Temp Pulse Resp BP Pulse Ox 98.8 F 101 16 103/67 99 12/11/18 12:03 12/11/18 12:03 12/11/18 12:03 12/11/18 12:03 12/11/18 12:03 Exam: GENERAL: Alert, minimal distress, cooperative EYES: PERRLA, EOMI LUNGS: Scattered crackles bilaterally CARDIAC: Normal S1 and S2; no rubs, murmurs, or gallops ABDOMEN: Abdomen soft, non-tender, BS normal, No masses or organomegaly EXTREMITIES: Extremities normal, no deformities, edema, clubbing or skin discoloration. Good capillary refill., No ulcers PULSES: 2+ radial, 2+ carotid Rest of the exam is non contributory - Assessment and Plan (1) DVT prophylaxis Current Visit: No Status: Acute Assessment and Plan: lovenox (2) Chest pain Current Visit: Yes Status: Acute Assessment and Plan: Appreciate cardiology consultation. The patient has had recent PCI but still has a residual mid LAD lesions. She will eventually need to undergo cardiac catheter but currently the treatment of her hospital-acquired pneumonia is what precludes her from undergoing further cardiac workup. Discussed in detail with cardiology. Continue on dual antiplatelet therapy for her prior stents Patient currently denies any chest pain and most of her symptoms are related to her pneumonia. 12/09-patient has had extensive cardiac workup and underwent PCI. C points above. At this point she does have 70% stenosis of the mid LAD which is remaining. Patient has been discussed cardiac catheter again and patient has been refusing. Cardiology is ordering limited TTE and assess LV EF and wall motion. If those are normal then they will follow up as an outpatient, if abnormal then she may need a cardiac catheter while inpatient. She is to continue on aspirin and Dilantin and statin for now. Beta scott currently was on hold hold due to hypotension. Might resume today. 12/10-BP better. will resume her on BB. Lasix will also be started since this was recommended by cards. Will reach out to them for a plan for MLAD lesion now. patients is agreeable to cath by has questions. Discussed with RN as well 12/11-blood pressure continues to be better. Lasix has been started. Continue beta scott. Consider adding MANJULA inhibitor's. Will follow-up plan from cardiology. The patient is now amenable to doing a catheter as an outpatient. Given her social situation and the need for a halfway facility as emphasized by physical therapy, we will be working on disposition over the next few days. If we are not able to secure location for her then she may end up undergoing the catheter on Saturday. The final plan to be determined (3) Acute systolic congestive heart failure Current Visit: No Status: Acute Assessment and Plan: EF 30% per LV gram, repeat TTE showed EF 40-45% and mild diastolic dysfunction. Chest CTA with small bilateral pleural effusions. Appears mildly overloaded with dyspnea, rails on exam and lower extremity edema. Leading home Lasix. Give one-time dose IV Lasix. Strict I&Os, daily weights. Defer further diuresis to oncoming hospitalist/cardiology as patient only appears mildly overloaded and BP soft/borderline. 12/08-and currently improving after Lasix. Continue strict intake and output. We will follow cardiology recommendations. 12/09-continue Lasix. Cardiology following. Echo pending. 12/10-Start Oral lasix today. keep monitoring I&O 12/11-doing well. Continue intake and output observation. Echo reviewed (4) Multifocal pneumonia Current Visit: Yes Status: Acute Assessment and Plan: Chest CTA showed multifocal PNA. No elevated WBC, afebrile. Does not appear acute or toxic. Recieved IV vanco, zosyn and azithromycin in ED. de-escalate antibiotic to Levaquin only. Urinary antigens, respiratory PCR and sputum culture pending. Will need repeat imaging in 8 weeks to confirm resolution. 12/08-continue broad-spectrum antibiotics. Pulmonary medicine consulted given the patient's history of COPD most likely we are dealing with health care acquired pneumonia. Await cultures. The patient has been weaned from BiPAP and is doing better on nasal cannula. Continue to titrate 12/09-patient was in acute hypoxic respiratory failure most likely secondary to multifocal pneumonia in addition to his asthma exacerbation complicating acute systolic heart failure. She has been improving significantly and is currently on 4 L of oxygen. Appreciate pulmonary follow-up She will continue on IV steroids while in house and we will eventually switch to a prolonged steroid taper. Continue to wean oxygen down. Cultures are so far negative. She will eventually need an Augmentin antibiotic course for a total of 7-10 days. Repeat CAT scan in 4-7 weeks to demonstrate resolution of her opacities. 12/10-continue IV Abx. continue to wean O2. 12/11-continue IV antibiotics while in house. Anticipate 10 days total of IV and oral antibiotics Patient is not in sepsis. Did not meet sepsis criteria (5) Diabetes Current Visit: Yes Status: Acute Assessment and Plan: Continue sliding scale insulin and serial Accu-Cheks. (6) CAD (coronary artery disease) Current Visit: Yes Status: Chronic Assessment and Plan: presented as a STEMI on 11/16/18 and was taken urgently to the pathology laboratory director and underwent PCI to occluded LCx. On 11/20/18 planned staged PCI to the RCA completed, patient also seen to have stenosis distal to LCX stent not previously seen (likely due to clot burden) that was intervened on. There was a 70% stenosis in the mLAD remaining and medical management was recommended. With chest pain as noted above. Cont home ASA, brilinta, statin. Cardiology consulted beta scott was held due to hypotension 12/08-appreciate cardiology consult. Continue to monitor closely. She has residual LAD disease which will need to be treated at some point once her pneumonia gets better. 12/11 see plan above. (7) Lower extremity edema Current Visit: Yes Status: Acute (8) Thoracic compression fracture Current Visit: Yes Status: Acute - Time Spent with Patient Total time spent is greater than 50% in coordination of care (as documented) at patient's floor/unit and/or counseling patient: Greater than 35 minutes Plan of Care Discussed with: patient (More than 50% of time spent in [id number] counseling) Internal Medicine: Result - Labs CBC & Chem 7: 12/10/18 04:54 12/10/18 04:54 - ABG Interpretation ABG results: ABG ABG pH 7.53 pH Units (7.32-7.45) H 12/08/18 00:23 ABG pCO2 30 mmHg (35-45) L 12/08/18 00:23 ABG pO2 62 mmHg (85-104) L 12/08/18 00:23 ABG O2 Saturation 94 % (95-98) L 12/08/18 00:23 PT/INR, D-dimer D-Dimer 887 ng/mLFEU (0-500) H 12/07/18 07:35 Consult Discharge Plan - Plan Referrals: Linnea Quintero DO [Primary Care Provider] - 12/09/18 1:30 pm (2) Chest pain Qualifiers: Chest pain type: unspecified Qualified Code(s): R07.9 - Chest pain, unspecified (5) Diabetes Qualifiers: Diabetes mellitus type: type 2 Diabetes mellitus halfway insulin use: with halfway use Diabetes mellitus complication status: without complication Qualified Code(s): E11.9 - Type 2 diabetes mellitus without complications; Z79.4 - FDC (current) use of insulin (6) CAD (coronary artery disease) Qualifiers: Coronary Disease-Associated Artery/Lesion type: [place] artery [place] vs. transplanted heart: [place] heart Associated angina: without angina Qualified Code(s): I25.10 - Atherosclerotic heart disease of [place] coronary artery with out angina pectoris (8) Thoracic compression fracture Qualifiers: Encounter type: initial encounter Fracture type: closed Qualified Code(s): S22.000A - [place] compression fracture of unspecified thoracic vertebra, initial encounter for closed fracture
[2018-12-11] MEDS: Insulin DETEMIR 100 UNIT/ML X5UNITS SQ SCH (21:51)
[2018-12-12] MEDS: Piperacillin/Tazobactam 3.375 GM in 0.9 % Sodium Chloride Mini Bag 100 ML IVPB SCH ×3 (01:17→17:24)
[2018-12-12] MEDS: Levalbuterol Neb 1.25 MG/3 ML IH SCH ×4 (03:57→21:25)
[2018-12-12] MEDS: *HR* Enoxaparin 40 MG/0.4 ML SYRINGE SQ SCH (05:18)
[2018-12-12] MEDS: *HR* Ticagrelor 90 MG TABLET PO SCH ×2 (09:09→21:30)
[2018-12-12] MEDS: *HR* OxyCODONE Immed Rel 5 MG TABLET PO PRN (09:10)
[2018-12-12] MEDS: predniSONE 20 MG TABLET PO SCH (09:10)
[2018-12-12] MEDS: Aspirin Enteric Coated 81 MG Tablet PO SCH (09:10)
[2018-12-12] MEDS: Insulin LISPRO 300 UNITS/3 ML VIAL SQ SCH ×4 (09:11→21:17)
[2018-12-12] MEDS: Metoprolol XL (24 HR) Succ 25 MG TAB.ER.24H PO SCH (09:11)
[2018-12-12] MEDS: Levofloxacin 750 MG/150 ML 750 MG/150 ML BAG IVPB SCH (09:12)
[2018-12-12] MEDS: Budesonide/Formoterol 160/4.5 1 PUFF INH IH SCH ×2 (09:47→21:24)
[2018-12-12 11:08] LABS: Basophils % 0.1 %; Eosinophils % 0.2 %; Hematocrit 28.1 % (35.3-44.9); Hemoglobin 8.6 g/dL (11.5-15.4); Immature Granulocytes % 0.8 % (0-4); Lymphocytes # 0.9 K/mcL (0.6-4.6); Lymphocytes % 10.8 %; Mean Corpuscular HGB Conc 30.6 g/dL (31.6-35.5); Mean Corpuscular Hemoglobin 28.3 pg (28.0-33.3); Mean Corpuscular Volume 92.4 fL (83.0-100.0); Mean Platelet Volume 10.6 fL (9.4-12.4); Monocytes # 0.7 K/mcL (0.0-1.3); Neutrophils # 6.7 K/mcL (1.6-8.9); Platelet Count 223 K/mcL (140-400); Red Blood Count 3.04 M/mcL (3.82-4.97); Red Cell Distribution Width 15.3 % (11.5-14.5); Segmented Neutrophils % 80.1 %
[2018-12-12 11:27] LABS: Alanine Aminotransferase 15 Units/L (7-52); Albumin 3.1 g/dL (3.5-5.7); Albumin/Globulin Ratio 1.2 (1.1-2.2); Alkaline Phosphatase 66 Units/L (34-104); Aspartate Amino Transferase 15 Units/L (13-39); BUN/Creatinine Ratio 18 (6-26); Bilirubin,Total 0.3 mg/dL (0.3-1.0); Blood Urea Nitrogen 16 mg/dL (8-23); Calcium 9.1 mg/dL (8.6-10.3); Carbon Dioxide 27 mEq/L (23-29); Chloride 104 mEq/L (98-107); Globulin 2.5 g/dL (2.4-3.5); Glucose 154 mg/dL (70-105); Osmolality,Calculated 288 (280-300); Potassium 3.6 mEq/L (3.5-5.1); Sodium 137 mEq/L (136-145); Total Protein 5.6 g/dL (6.4-8.9); eGFR For Non-African Americans > 60 (> 60)
--- NOTE | 2018-12-12 11:51 | Internal Med Progress Note ---
Hospitalist Progress Note - Encounter Date of Encounter: 12/12/18 Time of Encounter: 11:47 - Subjective Interval History: Patient's shortness of breath is improved. She was complained of some nausea this morning.The concern to me that she looks like atrial fibrillation on the monitor. - Exam Vitals: Temp Pulse Resp BP Pulse Ox 97.3 F L 90 24 91/53 99 12/12/18 11:24 12/12/18 11:24 12/12/18 11:24 12/12/18 11:24 12/12/18 11:24 Exam: GENERAL: Alert, appears comfortable, cooperative EYES: PERRLA, EOMI LUNGS: Faint distant crackles heard bilaterally CARDIAC: Normal S1 and S2; no rubs, murmurs, or gallops ABDOMEN: Abdomen soft, non-tender, BS normal, No masses or organomegaly EXTREMITIES: Extremities normal, no deformities, edema, clubbing or skin discoloration. Good capillary refill., No ulcers PULSES: 2+ radial, 2+ carotid Rest of the exam is non contributory - Assessment and Plan (1) DVT prophylaxis Current Visit: No Status: Acute Assessment and Plan: lovenox (2) CAD (coronary artery disease) Current Visit: Yes Status: Chronic Assessment and Plan: presented as a STEMI on 11/16/18 and was taken urgently to the phlebotomy lab assistant and underwent PCI to occluded LCx. On 11/20/18 planned staged PCI to the RCA completed, patient also seen to have stenosis distal to LCX stent not previously seen (likely due to clot burden) that was intervened on. There was a 70% stenosis in the mLAD remaining and medical management was recommended. With chest pain as noted above. Cont home ASA, brilinta, statin. Cardiology consulted beta scott was held due to hypotension 12/09-patient has had extensive cardiac workup and underwent PCI. C points above. At this point she does have 70% stenosis of the mid LAD which is remaining. Patient has been discussed cardiac catheter again and patient has been refusing. Cardiology is ordering limited TTE and assess LV EF and wall motion. If those are normal then they will follow up as an outpatient, if abnormal then she may need a cardiac catheter while inpatient. She is to continue on aspirin and Dilantin and statin for now. Beta scott currently was on hold hold due to hypotension. Might resume today. 12/10-BP better. will resume her on BB. Lasix will also be started since this was recommended by cards. Will reach out to them for a plan for MLAD lesion now. patients is agreeable to cath by has questions. Discussed with RN as well 12/11-blood pressure continues to be better. Lasix has been started. Consider beta scott. Consider adding MANJULA inhibitor's. Will follow-up plan from cardiology. The patient is now amenable to doing a catheter as an outpatient. Given her social situation and the need for a senior care facility as emphasized by physical therapy, we will be working on disposition over the next few days. If we are not able to secure location for her then she may end up undergoing the catheter on Saturday. The final plan to be determined 12/12-EKG from this morning does not show that the patient is in atrial fibrillation. Blood pressure has been hovering in the high systolic of 90s. Some of the blood pressure medications are held. Cardiology close monitoring the patient. Since the patient's disposition plan is now changed, we will be contemplating doing a cardiac catheter to fix the mid LAD lesion most likely in this hospitalization-either Saturday or early next week. I also made the patient's nephew aware of this and spoke to cardiology regarding this. For now we will continue dual antiplatelet therapy. Monitor the patient very closely. (3) Chest pain Current Visit: Yes Status: Acute Assessment and Plan: See plan above. Currently not having any chest pain. (4) Acute systolic congestive heart failure Current Visit: No Status: Acute Assessment and Plan: EF 30% per LV gram, repeat TTE showed EF 40-45% and mild diastolic dysfunction. Chest CTA with small bilateral pleural effusions. Appears mildly overloaded with dyspnea, rails on exam and lower extremity edema. Leading home Lasix. Give one-time dose IV Lasix. Strict I&Os, daily weights. Defer further di uresis to oncoming hospitalist/cardiology as patient only appears mildly overloaded and BP soft/borderline. 12/08-and currently improving after Lasix. Continue strict intake and output. We will follow cardiology recommendations. 12/09-continue Lasix. Cardiology following. Echo pending. 12/10-Start Oral lasix today. keep monitoring I&O 12/11-doing well. Continue intake and output observation. Echo reviewed 12/12-ejection fraction is 50% on the latest echo there is some septal wall motion abnormality documented there. See plan from "coronary artery disease" above. Continue as needed Lasix (5) Multifocal pneumonia Current Visit: Yes Status: Acute Assessment and Plan: Chest CTA showed multifocal PNA. No elevated WBC, afebrile. Does not appear acute or toxic. Recieved IV vanco, zosyn and azithromycin in ED. de-escalate antibiotic to Levaquin only. Urinary antigens, respiratory PCR and sputum culture pending. Will need repeat imaging in 8 weeks to confirm resolution. 12/08-continue broad-spectrum antibiotics. Pulmonary medicine consulted given the patient's history of COPD most likely we are dealing with health care acquired pneumonia. Await cultures. The patient has been weaned from BiPAP and is doing better on nasal cannula. Continue to titrate 12/09-patient was in acute hypoxic respiratory failure most likely secondary to healthcare multifocal pneumonia in addition to his asthma exacerbation complicating acute systolic heart failure. She has been improving significantly and is currently on 4 L of oxygen. Appreciate pulmonary follow-up She will continue on IV steroids while in house and we will eventually switch to a prolonged steroid taper. Continue to wean oxygen down. Cultures are so far negative. She will eventually need an Augmentin antibiotic course for a total of 7-10 days. Repeat CAT scan in 4-7 weeks to demonstrate resolution of her opacities. 12/10-continue IV Abx. continue to wean O2. 12/11-continue IV antibiotics while in house. Anticipate 10 days total of IV and oral antibiotics Patient is not in sepsis. Did not meet sepsis criteria 12/12-HCAP- multifocal pneumonia. Continue current antibiotics. Requires a total of 10 days of antibiotic therapy. If she ends up going home, will switch to Augmentin. Continue to titrate the oxygen down. She needs a repeat CAT scan in 4-7 weeks to demonstrate resolution of her opacities. (6) Diabetes Current Visit: Yes Status: Acute (7) Lower extremity edema Current Visit: Yes Status: Acute (8) Thoracic compression fracture Current Visit: Yes Status: Acute DVT Prophylaxis: Lovenox - Time Spent with Patient Total time spent is greater than 50% in coordination of care (as documented) at patient's floor/unit and/or counseling patient: Greater than 35 minutes Plan of Care Discussed with: patient (More than 50% time spent in [id number] counseling and discussion with consultants) Internal Medicine: Result - Labs CBC & Chem 7: 12/12/18 10:27 12/12/18 10:27 Labs: Short CBC 12/12/18 Range/Units 10:27 WBC 8.4 (4.3-11.1) K/mcL Hgb 8.6 L (11.5-15.4) g/dL Hct 28.1 L (35.3-44.9) % Plt Count 223 (140-400) K/mcL Neutrophils # 6.7 (1.6-8.9) K/mcL BMP 12/12/18 10:27 Sodium 137 Potassium 3.6 Chloride 104 Carbon Dioxide 27 BUN 16 Creatinine 0.90 Glucose 154 H Calcium 9.1 Liver Function 12/12/18 Range/Units 10:27 Total Bilirubin 0.3 (0.3-1.0) mg/dL AST 15 (13-39) Units/L ALT 15 (7-52) Units/L Alkaline Phosphatase 66 (34-104) Units/L Albumin 3.1 L (3.5-5.7) g/dL - ABG Interpretation ABG results: ABG ABG pH 7.53 pH Units (7.32-7.45) H 12/08/18 00:23 ABG pCO2 30 mmHg (35-45) L 12/08/18 00:23 ABG pO2 62 mmHg (85-104) L 12/08/18 00:23 ABG O2 Saturation 94 % (95-98) L 12/08/18 00:23 PT/INR, D-dimer D-Dimer 887 ng/mLFEU (0-500) H 12/07/18 07:35 Consult Discharge Plan - Plan Referrals: Linnea Quintero DO [Primary Care Provider] - 12/09/18 1:30 pm (2) CAD (coronary artery disease) Qualifiers: Coronary Disease-Associated Artery/Lesion type: [place] artery [place] vs. transplanted heart: [place] heart Associated angina: without angina Qualified Code(s): I25.10 - Atherosclerotic heart disease of [place] coronary artery without angina pectoris (3) Chest pain Qualifiers: Chest pain type: unspecified Qualified Code(s): R07.9 - Chest pain, unspecified (6) Diabetes Qualifiers: Diabetes mellitus type: type 2 Diabetes mellitus jail insulin use: with terminal system operator use Diabetes mellitus complication status: without complication Qualified Code(s): E11.9 - Type 2 diabetes mellitus without complications; Z79.4 - half-way (current) use of insulin (8) Thoracic compression fracture Qualifiers: Encounter type: initial encounter Fracture type: closed Qualified Code(s): S22.000A - Wedge compression fracture of unspecified thoracic vertebra, initial encounter for closed fracture
--- NOTE | 2018-12-12 13:16 | Cardiology Progress Note ---
Addendum entered and electronically signed by Berto Badillo MD 12/12/18 16:06: I have personally performed a face to face evaluation on this patient. I have reviewed and agree with the documented findings and care plan as documented by the BAG SORTER. History and Exam by me shows: 82-year-old female with history of CAD admitted for pneumonia and UTI as well as intermittent chest pressure. Sepsis is resolved. She has a 70% mid LAD stenosis from last cardiac catheterization that was not intervened upon. Recommend cardiac catheterization prior to discharge. Thanks, Berto Badillo MD [facility] Original Note: Date of Encounter: 12/12/18 Time of Encounter: 12:15 Assessment and Plan (1) Multifocal pneumonia Current Visit: Yes Status: Acute Per cardiology: -Admitted with multi-focal pneumonia. -On ATB. -Management per primary service. (2) CHF (congestive heart failure) Current Visit: No Status: Acute Per cardiology: -Acute on chronic CHF reports NYHA class III symptoms. -Bilateral pleural effusions noted per CTA. -BNP 1449. -Was given IV lasix 20mg x2 doses. -TTE 11/17/18: LVEF 40-45%. Normal LV chamber size and wall thickness. Asymmetric hypertrophy of the basal septum. mild LVDD, segmental left ventricular systolic dysfunction, normal right ventricular structure and function, mild MR, TR, moderate-severe PH, est RVSP is 55 mmHg; mid inferior lateral and basal inferior lateral perez were hypokinetic -Limited TTE with LVEF 50%. -On BB. Was not started on fitz/arb due to hypotension. -Currently euvolemic on exam. -On PRN lasix. Consider resuming daily dosing once BP improved. -Strict i/os, fluid restrictions, daily weights. -Consider addition of fitz/arb if able pending BP and clinical course. Qualifiers: Heart failure type: systolic Heart failure chronicity: acute on chronic Qualified Code(s): I50.23 - Acute on chronic systolic (congestive) heart failure (3) Elevated troponin Current Visit: Yes Status: Acute Per cardiology: -Troponins 0.05, 0.04, 0.05x2 in the setting of pneumonia. -Denies chest pain. -No acute ischemic ECG changes noted. -On asa, brilinta, statin. Not currently on BB due to hypotension. -Limited TTE with LVEF 50%, improved from previous. -Demand ischemia related to pneumonia. NO cardiac rehab consult warranted. -See CAD (4) CAD (coronary artery disease) Current Visit: Yes Status: Chronic Per cardiology: -Known CAD s/p recent [place]. -Patient presented with acute inferior lateral STEMI; taken urgently to the [facility] 11/16/18 and underwent PCI to occluded LCx. On 11/20/18 planned staged PCI to the RCA completed, patient also seen to have stenosis distal to LCX stent not previously seen (likely due to clot burden) that was intervened on. There is a 70% stenosis in the mLAD remaining. -ON asa, brilinta, statin. Not on BB currently due to hypotension. -Patient had previously refused LHC invateint, however patient states she is now agreeable for LHC. Risks versus benefits of LHC explained to patient who states understanding and now agreeable to proceed. Of note, patient ate today, will plan for LHC on Saturday. Cardiology will follow peripherally this . NPO after midnight Saturday night. Qualifiers: Coronary Disease-Associated Artery/Lesion type: [place] artery [place] vs. transplanted heart: [place] heart Associated angina: without angina Qualified Code(s): I25.10 - Atherosclerotic heart disease of [place] coronary artery without angina pectoris Discussion w patient/family: The assessment and plan as outlined above was discussed with the patient who e xpressed understanding and agreement. All questions were answered. Thank you for involving us in the care of your patient. Please call with any questions. Discussed and reviewed with . Subjective Principal diagnosis: Pneumonia Interval history: Patient reports symptom improvement today. Reports still more short of breath than baseline, however improving. Denies chest pain. Denies palpitations or fluttering. Objective Vital Signs, Last 4 Hours Temp Pulse Resp BP Pulse Ox 12/12/18 11:24 97.3 F L 90 24 91/53 99 12/12/18 09:47 16 94 General: Conversant, No Apparent Distress HEENT: Atraumatic, Normocephaly, Mucus Membranes Moist Neck: No JVD, Normal carotid pulses Cardiac: Reg Rate and Rhythm, Normal S1 and S2, No Murmur Lungs: Normal Breath Sounds, No Wheeze, Rales, Rhonchi Neuro: Alert and responsive, No focal deficits noted Abdomen: Soft, Non-Tender Skin: No rashes noted on visualized skin Musculoskeletal: No Chest Wall Tenderness Extremities: No Clubbing, No Cyanosis, No Edema, Normal Pulses Results 12/12/18 10:27 12/12/18 10:27 Lab Results Active Medications Albuterol/Ipratropium (Duoneb) 3 ml IH [id number] DAMIEN Stop: 06/09/19 00:01 Last Admin: 12/09/18 04:23 Dose: 3 ml Aspirin (Aspirin Ec) 81 mg PO DAILY DAMIEN Stop: 06/09/19 09:01 Last Admin: 12/12/18 09:10 Dose: 81 mg Budesonide/Formoterol Fumarate (Symbicort) 2 puff IH BIDR DAMIEN; Protocol Stop: 06/09/19 22:01 Last Admin: 12/12/18 09:47 Dose: 2 puff Dextrose/Water (Dextrose 50% (Syg)) 25 ml IVP AD PRN PRN Reason: Hypoglycemia Stop: 06/08/19 09:52 Docusate Sodium (Colace) 100 mg PO BID PRN; Protocol PRN Reason: Constipation Stop: 06/10/19 12:14 Last Admin: 12/10/18 22:12 Dose: 100 mg Enoxaparin Sodium (Lovenox) 40 mg SQ 0600 DAMIEN; Protocol Stop: 06/09/19 06:01 Last Admin: 12/12/18 05:18 Dose: 40 mg Furosemide (Lasix) 20 mg PO DAILY PRN PRN Reason: Edema Stop: 06/09/19 11:21 Glucagon (Glucagen) 1 mg IM ONCE PRN PRN Reason: Hypoglycemia Stop: 06/08/19 09:52 Glucose (Gluctose) 15 gm PO ONCE PRN PRN Reason: Hypoglycemia Stop: 06/08/19 09:52 Glucose (Gluctose) 30 gm PO ONCE PRN PRN Reason: Hypoglycemia Stop: 06/08/19 09:52 Dextrose (Dextrose 5%) 1,000 mls @ 100 mls/hr IVC .Q10H PRN PRN Reason: HYPOGLYCEMIA Stop: 06/08/19 09:52 Levofloxacin/Dextrose (Levaquin Premix 750mg/150 Ml) 750 mg in 150 mls @ 100 mls/hr IVPB DAILY DAMIEN; Protocol Stop: 06/09/19 09:01 Last Admin: 12/12/18 09:12 Dose: 100 mls/hr Piperacillin Sod/Tazobactam (Sod 3.375 gm/ Sodium Chloride) 100 mls @ 25 mls/hr IVPB Q8H [facility] Stop: 06/09/19 02:01 Last Admin: 12/12/18 11:21 Dose: 25 mls/hr Insulin Detemir (Levemir) 5 unit SQ HS [facility] Stop: 06/08/19 21:01 Last Admin: 12/11/18 21:51 Dose: 5 unit Insulin Human Lispro (Humalog) 0 units SQ HS [facility]; Protocol Stop: 06/08/19 21:01 Last Admin: 12/11/18 20:54 Dose: 4 units Insulin Human Lispro (Humalog) 0 units SQ TIDAC [facility]; Protocol Stop: 06/08/19 11:31 Last Admin: 12/12/18 11:35 Dose: Not Given Levalbuterol HCl (Xopenex) 1.25 mg IH [id number] [facility] Stop: 06/10/19 10:01 Last Admin: 12/12/18 09:47 Dose: 1.25 mg Melatonin (Melatonin) 3 mg PO HS PRN PRN Reason: Insomnia Stop: 06/12/19 09:37 Metoprolol Succinate (Toprol Xl) 12.5 mg PO DAILY [facility] Stop: 06/10/19 11:31 Last Admin: 12/12/18 09:11 Dose: 12.5 mg Naloxone HCl (Narcan) 0.4 mg IVP Q2MIN PRN PRN Reason: SEE COMMENTS Stop: 06/08/19 09:50 Omeprazole (Prilosec) 20 mg PO BIDAC [facility]; Protocol Stop: 06/12/19 16:31 Last Admin: 12/12/18 09:10 Dose: 20 mg Oxycodone HCl (Roxicodone) 5 mg PO Q6HR PRN; Protocol PRN Reason: Pain Stop: 06/08/19 11:32 Last Admin: 12/12/18 09:10 Dose: 5 mg Polyethylene Glycol (Miralax) 17 gm PO DAILY [facility] Stop: 06/13/19 09:01 Last Admin: 12/12/18 09:11 Dose: 17 gm Prednisone (Prednisone) 60 mg PO DAILY [facility] Stop: 06/12/19 09:01 Last Admin: 01/11/19 09:10 Dose: 60 mg Promethazine HCl (Phenergan) 12.5 mg PO Q6HR PRN PRN Reason: Nausea And Vomiting Stop: 06/13/19 09:27 Rosuvastatin Calcium (Crestor) 20 mg PO HS DAMIEN Stop: 06/08/19 21:01 Last Admin: 12/11/18 20:52 Dose: 20 mg Sodium Chloride ([place] Nasal [place]) 2 spray NS Q2H PRN PRN Reason: Congestion Stop: 06/08/19 22:29 Last Admin: 12/07/18 23:18 Dose: 2 spray Ticagrelor (Brilinta) 90 mg PO BID DAMIEN Stop: 06/08/19 21:01 Last Admin: 12/12/18 09:09 Dose: 90 mg Laboratory Tests 12/12/18 12/12/18 10:27 10:27 Hgb 8.6 L Creatinine 0.90 - Imaging and Cardiology Chest Xray: report reviewed Echo: report reviewed Cardiac cath: report reviewed - EKG Interpretation EKG results cardiology: other (Telemetry reviewed with average HR previous 12 hours noted to be 105, ST. PVCs, PACS, short runs of atrial tachycardia noted.) Consult Discharge Plan - Plan Referrals: Linnea Quintero DO [Primary Care Provider] - 12/09/18 1:30 pm
--- NOTE | 2018-12-12 14:59 | Electrocardiograph Report ---
[address] [place] [address] Test Date: 2018-12-12 Pat Name: Sussy Marin Department: 111 Room: 2NE17 Gender: F Emergency Department Aide: Fidel : 1935 Requested By: Ra Atkinson Order Number: [id number] Reading MD: Saurabh Briones Measurements Intervals [place] Rate: 94 P: 106 GA: 94 QRS: 231 QRSD: 130 T: 240 QT: 374 QTc: 426 Interpretive Statements SINUS RHYTHM WITH SHORT GA INTERVAL WITH OCCASIONAL VENTRICULAR PREMATURE COMPLEXES WITH OCCASIONAL SUPRAVENTRICULAR PREMATURE RIGHT BUNDLE BRANCH BLOCK LATERAL MYOCARDIAL INFARCTION, PROBABLY OLD Electronically Signed On 12-12-2018 14:58:05 EST by Saurabh Briones
[2018-12-12] MEDS: Insulin DETEMIR 100 UNIT/ML X5UNITS SQ SCH (21:25)
[2018-12-13] MEDS: *HR* OxyCODONE Immed Rel 5 MG TABLET PO PRN ×3 (00:39→20:08)
[2018-12-13] MEDS: Piperacillin/Tazobactam 3.375 GM in 0.9 % Sodium Chloride Mini Bag 100 ML IVPB SCH (02:08)
[2018-12-13] MEDS: Levalbuterol Neb 1.25 MG/3 ML IH SCH ×4 (03:12→21:33)
[2018-12-13] MEDS: *HR* Enoxaparin 40 MG/0.4 ML SYRINGE SQ SCH (05:37)
[2018-12-13] MEDS: *HR* Ticagrelor 90 MG TABLET PO SCH ×2 (08:51→20:09)
[2018-12-13] MEDS: Insulin LISPRO 300 UNITS/3 ML VIAL SQ SCH ×4 (08:51→20:10)
[2018-12-13] MEDS: Aspirin Enteric Coated 81 MG Tablet PO SCH (08:51)
[2018-12-13] MEDS: predniSONE 20 MG TABLET PO SCH (08:51)
[2018-12-13] MEDS ORDERED: Metoprolol XL (24 HR) Succ 25 MG TAB.ER.24H PO SCH (09:00)
--- NOTE | 2018-12-13 09:40 | Event Note ---
Date of Encounter: 12/13/18 Time of Encounter: 09:39 - Cardiology Event Note Pt continues to have chest pain, currently 2/10. Remaining 70% mid LAD stenosis from last cardiac catheterization that was not intervened upon. Recommend [facility] with PCI. R/B/A discussed. Pt agrees to proceed. LHC today.
[2018-12-13] MEDS: Budesonide/Formoterol 160/4.5 1 PUFF INH IH SCH ×2 (09:45→21:33)
[2018-12-13 09:54] LABS: Basophils % 0.1 %; Eosinophils % 0.3 %; Hematocrit 31.1 % (35.3-44.9); Hemoglobin 9.8 g/dL (11.5-15.4); Immature Granulocytes % 1.3 % (0-4); Lymphocytes # 1.2 K/mcL (0.6-4.6); Lymphocytes % 11.7 %; Mean Corpuscular HGB Conc 31.5 g/dL (31.6-35.5); Mean Corpuscular Hemoglobin 29.2 pg (28.0-33.3); Mean Corpuscular Volume 92.6 fL (83.0-100.0); Mean Platelet Volume 10.7 fL (9.4-12.4); Monocytes # 0.9 K/mcL (0.0-1.3); Monocytes % 8.8 %; Neutrophils # 7.8 K/mcL (1.6-8.9); Platelet Count 271 K/mcL (140-400); Red Blood Count 3.36 M/mcL (3.82-4.97); Red Cell Distribution Width 15.4 % (11.5-14.5); Segmented Neutrophils % 77.8 %
[2018-12-13 10:01] LABS: INR 1.2; Prothrombin Time 13.7 Seconds (9.4-12.1)
[2018-12-13 10:12] LABS: BUN/Creatinine Ratio 19 (6-26); Blood Urea Nitrogen 17 mg/dL (8-23); Calcium 9.5 mg/dL (8.6-10.3); Carbon Dioxide 27 mEq/L (23-29); Chloride 103 mEq/L (98-107); Glucose 114 mg/dL (70-105); Osmolality,Calculated 286 (280-300); Potassium 3.7 mEq/L (3.5-5.1); Sodium 137 mEq/L (136-145); eGFR For Non-African Americans 59 (> 60)
--- NOTE | 2018-12-13 10:33 | Pre-Sedation Evaluation ---
Pre-sedation evaluation - Pre-sedation checklist Date of procedure: 12/13/18 Procedure: Heart Cath Recent Vitals: Last Vital Signs Temp 98.0 F 12/13/18 08:15 Pulse 105 12/13/18 08:15 Resp 16 12/13/18 09:45 BP 124/76 12/13/18 08:15 Pulse Ox 99 12/13/18 09:45 H&P (including ROS) documented in medical record: Yes Previous reaction to sedatives/anesthetics: No Dietary Status: NPO after Midnight Dentition: No loose teeth or bridges, dentures removed ASA Classification *see protocol: CLASS II-Mild systemic disease Cardiac Registry (Cardio Only) - Functional Capacity Functional Capacity: >=4 METS with symptoms - Clincal Frailty Scale Clinical Frailty Scale: Managing Well
[2018-12-13] MEDS: Furosemide 20 MG TABLET PO SCH (10:35)
[2018-12-13] MEDS ORDERED: *HR* Heparin 10,000 UNIT/10 ML VIAL ONE ×2 (10:58→11:44)
[2018-12-13] MEDS ORDERED: Nitroglycerin 1,000 MCG/10 ML VIAL IV ONE (10:59)
[2018-12-13] MEDS ORDERED: Heparin 1,000 UNITS/500 mL 0 ML ONE (10:59)
[2018-12-13] MEDS ORDERED: ISOVUE-370 200 ML INFUS..BTL ONE ×2 (10:59→11:44)
[2018-12-13] MEDS ORDERED: 0.9 % Sodium Chloride 1,000 ML ONE ×3 (10:59→11:44)
--- NOTE | 2018-12-13 11:13 | Internal Med Progress Note ---
Hospitalist Progress Note - Encounter Date of Encounter: 12/13/18 Time of Encounter: 10:15 - Subjective Interval History: Hospital course reviewed. Patient was admitted for hypoxic respiratory failure secondary to HCAP and COPD exacerbation. Oxygenation improved with steroid, abx. Of note, patient had residual 70% mLAD lesion for which she will have C today. States that her breathing is about the same as yesterday but feels like "fluid is building up". No fever/chills - Exam Vitals: Temp Pulse Resp BP Pulse Ox 98.0 F 105 16 124/76 99 12/13/18 08:15 12/13/18 08:15 12/13/18 09:45 12/13/18 08:15 12/13/18 09:45 Exam: GENERAL: Alert, appears comfortable, cooperative LUNGS: bibasilar crackles and occasional end-expiratory wheezes CARDIAC: Normal S1 and S2; no murmurs. Trace LE pitting edema ABDOMEN: Abdomen soft, non-tender, BS normal PULSES: 2+ radial, 2+ carotid - Assessment and Plan (1) CAD (coronary artery disease) Current Visit: Yes Status: Chronic Assessment and Plan: presented as a STEMI on 11/16/18 and was taken urgently to the cath laboratory technician and underwent PCI to occluded LCx. On 11/20/18 planned staged PCI to the RCA completed, patient also seen to have stenosis distal to LCX stent not previously seen (likely due to clot burden) that was intervened on. There was a 70% stenosis in the mLAD remaining discussed with cardiology yesterday, [facility] today for mLAD lesion continue DAPT and statin. BB restarted. If BP tolerates, will start MANJULA/ARB as well (2) Multifocal pneumonia Current Visit: Yes Status: Acute Assessment and Plan: Chest CTA showed multifocal PNA. Oxygenation improving with IV Abx de-escalate to PO Augmentin taper steroids, will need 2 week course per pulmonary Will need repeat imaging in 8 weeks to confirm resolution. (3) Acute systolic congestive heart failure Current Visit: No Status: Acute Assessment and Plan: lasix was on hold due to borderline BP appears to be mildly volume overloaded today restart at 20mg QD keep monitoring I&O (4) Asthma exacerbation Current Visit: Yes Status: Acute Assessment and Plan: D6 steroids. will start to taper over the course of 2 weeks switching abx to PO Augmentin Follow up in pulm clinic in 2-4 weeks post-discharge. (5) Diabetes Current Visit: Yes Status: Acute Assessment and Plan: Continue sliding scale insulin and serial Accu-Cheks. (6) DVT prophylaxis Current Visit: No Status: Acute Assessment and Plan: lovenox - Time Spent with Patient Total time spent is greater than 50% in coordination of care (as documented) at patient's floor/unit and/or counseling patient: Plan of Care Discussed with: patient Internal Medicine: Result - Labs CBC & Chem 7: 12/13/18 09:41 12/13/18 09:41 Labs: Short CBC 12/12/18 12/13/18 Range/Units 10:27 09:41 WBC 8.4 10.0 (4.3-11.1) K/mcL Hgb 8.6 L 9.8 L (11.5-15.4) g/dL Hct 28.1 L 31.1 L (35.3-44.9) % Plt Count 223 271 (140-400) K/mcL Neutrophils # 6.7 7.8 (1.6-8.9) K/mcL BMP 12/12/18 12/13/18 10:27 09:41 Sodium 137 137 Potassium 3.6 3.7 Chloride 104 103 Carbon Dioxide 27 27 BUN 16 17 Creatinine 0.90 0.91 Glucose 154 H 114 H Calcium 9.1 9.5 Liver Function 12/12/18 Range/Units 10:27 Total Bilirubin 0.3 (0.3-1.0) mg/dL AST 15 (13-39) Units/L ALT 15 (7-52) Units/L Alkaline Phosphatase 66 (34-104) Units/L Albumin 3.1 L (3.5-5.7) g/dL - ABG Interpretation ABG results: ABG ABG pH 7.53 pH Units (7.32-7.45) H 12/08/18 00:23 ABG pCO2 30 mmHg (35-45) L 12/08/18 00:23 ABG pO2 62 mmHg (85-104) L 12/08/18 00:23 ABG O2 Saturation 94 % (95-98) L 12/08/18 00:23 PT/INR, D-dimer PT 13.7 Seconds (9.4-12.1) H 12/13/18 09:41 D-Dimer 887 ng/mLFEU (0-500) H 12/07/18 07:35 Consult Discharge Plan - Plan Referrals: Linnea Quintero DO [Primary Care Provider] - 12/09/18 1:30 pm (1) CAD (coronary artery disease) Qualifiers: Coronary Disease-Associated Artery/Lesion type: [place] artery [place] vs. transplanted heart: [place] heart Associated angina: without angina Qualified Code(s): I25.10 - Atherosclerotic heart disease of [place] coronary artery without angina pectoris (4) Asthma exacerbation Qualifiers: Asthma severity: mild (5) Diabetes Qualifiers: Diabetes mellitus type: type 2 Diabetes mellitus roasterman insulin use: with roasterman use Diabetes mellitus complication status: without complication Qualified Code(s): E11.9 - Type 2 diabetes mellitus without complications; Z79.4 - group home (current) use of insulin
[2018-12-13] MEDS ORDERED: Heparin 1,000 UNITS/500 mL 500 ML ONE (11:44)
[2018-12-13] MEDS ORDERED: *HR* Midazolam HCl 2 MG/2 ML VIAL ONE (12:05)
[2018-12-13] MEDS ORDERED: *HR* FentaNYL (PF) 100 MCG/2 ML VIAL ONE (12:05)
[2018-12-13] MEDS ORDERED: Tirofiban 5 MG/100 mL 5 MG/100 ML VIAL IV ONE (12:09)
[2018-12-13] MEDS ORDERED: Tirofiban 12.5 MG/250ML 12.5 MG/250 ML BAG IVC SCH (13:15)
--- NOTE | 2018-12-13 13:22 | Invasive Diagnostic Lab Proc ---
Name: Sussy Marin Date of Study: 12/13/2018 Date: 1935 Ht: 61.0in Medical Record#: [id number] Age: 82 Wt: 158.73lb Gender: Female BSA: 1.71 Order #: [id number] BMI: 29.97 Physicians Procedure Physician: Devaughn Moctezuma MD Referring MD: Linnea Quintero DO Referring MD: Staff Name Position Time In RosaGabriela RN Eyelet Row Marker 12:06 PM Liliana Larson RN Monitor 12:06 PM Tasha Gao RT (R) Scrub 12:06 PM Jared Rodriguez RN Eyelet Row Marker 12:06 PM Indications Indication Procedures Performed Procedure CORONARY ARTERY ANGIO S&I PRQ CARD WADE STENT W/ANGIO 1 VSL Pre-Procedure Checklist Informed consent is complete signed and on chart. H&P is on chart. ID band is on and ID verified with patient. Patient NPO for procedure The procedure was described for the patient and questions were answered. Blood Pressure: 124/75 ECG is on chart. Rhythm: Sr w/ pvcs Plan of Care Patient will tolerate the procedure without complications. Adequate level of comfort will be maintained. Hemodynamics will remain stable Patient will recover from procedure without complications. Respiratory function will be maintained. Cardiac rhythm will remain stable. Patient temperature will be maintained. Patient and/or family have verbalized understanding of the procedure. Patient Education Chief Complaint/Reason for Test: Cardiac Cath Developmental Category: Geriatric (65+ years) Developmentally Appropriate for Age: Yes Learning Barriers: None Education Needs: Procedure Education Method: Verbal Information Taught: Cardiac Cath Educational Evaluation: Able to repeat information Intravenous Access Time IV Size Location DC'd Fluid/Drip Rate Units RN 12:04 PM 20g 1 12/05" Patent On Arrival Rt Antecubital 0.9NaCl 25 ml/hr Jared Rodriguez RN Allergies SULFA Vital Signs Time BP (mmHg) HR (bpm) O2 Sat. RR (bpm) LOC 10:54 AM 124 / 75 106 99 % 18 5 = Fully awake and oriented or at pre-proc level 12:06 PM / % 5 = Fully awake and oriented or at pre-proc level 12:06 PM / % 4 = Oriented but drowsy 12:21 PM / % 4 = Oriented but drowsy 12:06 PM 144 / 104 108 99 % 15 12:11 PM 124 / 94 100 95 % 12:16 PM 109 / 69 103 96 % 15 12:21 PM 118 / 78 103 94 % 16 12:26 PM 131 / 68 113 98 % 18 12:31 PM 124 / 88 114 96 % 23 12:36 PM 131 / 79 104 100 % 15 12:41 PM 118 / 77 95 99 % 17 12:46 PM 139 / 67 93 100 % 15 12:51 PM 138 / 84 113 95 % 17 12:52 PM 125 / 70 104 96 % 37 12:56 PM 139 / 85 116 99 % 40 01:01 PM 144 / 93 106 95 % Procedural Medications Time Medication Dose Units Method Given By 12:06 PM Oxygen 2 L/min nasal cannula Gabriela Lee RN 12:06 PM Versed 1 mg Intravenous Gabriela Lee RN 12:06 PM Fentanyl 50 mcg Intravenous Gabriela Lee RN 12:18 PM Lidocaine 2% 10 ml Subcutaneous Devaughn Moctezuma MD 12:27 PM Heparin 2000 units Intravenous Gabriela Lee RN 12:27 PM Aggrastat Bolus: 37.5 ml Intravenous Gabriela Lee RN 12:30 PM Aggrastat 5mg/100ml 13.5 ml Intravenous Gabriela Lee RN 12:53 PM Nitroglycerin 100 mcg Intravenous Tra Moctezuma MD ASA Classification: CLASS II- Mild systemic disease (i.e. well-controlled diabetes, hypertension, asthma, cigarette smoking) Derrick Score Preprocedure Postprocedure Activity 2- Moves 4 extremities sustained head lift Activity 2- Moves 4 extremities sustained head lift Circulation 2- SBP +/= 20 points of pre-anesthetic level Circulation 2- SBP +/= 20 points of pre-anesthetic level Consciousness 2- Awake and alert oriented x 3 Consciousness 2- Awake and alert oriented x 3 O2 Saturation 1- Needs O2 inhalation to maintain O2 saturation of 90% O2 Saturation 2- Able to maintain O2 satruation of 92% on room air Respiratory 2- Able to deep breathe and cough well Respiratory 2- Able to deep breathe and cough well Total Score 9 Total Score 10 Contrast Agent: Isovue Diagnostic Contrast: 148 ml Total Contrast: 148 ml Fluoro Dose: 7162 mGy Procedure Log Time Note Enter By 12:04 PM 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 Informed consent was obtained. scoates 12:05 PM Procedure start 12:05 scoates 12:05 PM Time: 12:05 Patient comfortable and pain free: Yes scoates 12:06 PM Time: 12:06LOC: 5 = Fully awake and oriented or at pre-proc level scoates 12:06 PM BW=319 bpm, NDDD=978/104 mmhg, SpO2=99.0 %, Resp=15 B/min, Comment=afib 12:06 PM Time: 12:06 Oxygen on at 2 L/min per nasal cannula by Gabriela Lee RN scoates 12:06 PM Time: 12:06 Versed 1 mg Intravenous Given by Gabriela Lee RN scoates 12:06 PM Time: 12:06 Fentanyl 50 mcg Intravenous Given by Gabriela Lee RN scoates 12:06 PM Gabriela Lee RN Position: Eyelet Row Marker Time in: 12:06 scoates 12:06 PM Liliana Larson RN Position: Monitor Time in: 12:06 scoates 12:06 PM Tasha Gao RT (R) Position: Scrub Time in: 12:06 scoates 12:06 PM Patient charges- Angio tray pack, Navilyst 3mm J, Pulse Oximetry and ACIST tubing and transducer scoates 12:06 PM Case Delayed no, inpatient scoates 12:07 PM Hair removed from procedure site in procedure lab using clippers. Bilateral groin prepped with Chloraprep by Tasha Gao RT (R), then patient was draped. Skin intact. scoates 12:07 PM Clinical Presentation: Unstable angina scoates 12:11 PM PN=199 bpm, GCEJ=938/94 mmhg, SpO2=95.0 %, Comment=afib 12:15 PM Pressure channel 1 zeroed. 12:16 PM PV=474 bpm, GURW=568/69 mmhg, SpO2=96.0 %, Resp=15 B/min, Comment=afib 12:18 PM Time out was performed according to hospital policy. Conscious sedation and anesthesia was achieved (see medication log with in this report above) scoates 12:19 PM Time: 12:18 10 ml Lidocaine 2% to right groin Subcutaneous Given by Devaughn Moctezuma MD scoates 12:20 PM Micro-Introducer Kit utilized for sheath placement scoates 12:21 PM SY=976 bpm, SOGS=716/78 mmhg, SpO2=94.0 %, Resp=16 B/min, Comment=afib 12: PM Time: 12:06LOC: 4 = Oriented but drowsy scoates 12: PM Time: 12:05 Patient comfortable and pain free: Yes scoates 12: PM Access obtained by percutaneous puncture. 6Fr 11cm Cordis Berna sheath placed in right Femoral artery. [id number] scoates 12:22 PM 5Fr FR 4 catheter inserted over the wire DNC scoates 12:22 PM RCA angiography performed in multiple views. scoates 12:23 PM Catheter removed scoates 12:23 PM 6Fr XB LAD 3.5 [place] Bright-Tip guide catheter was used to cannulate the PCI vessel successfully. reused? No scoates 12:24 PM LCA angiography performed in multiple views. scoates 12:24 PM Recorded Pressure: Ao, CS=085, Condition=Condition 1 (Aorta) Ao 118/74/95 12:25 PM Recorded Pressure: Ao, JC=288, Condition=Condition 1 (Aorta) Ao 113/72/91 12:26 PM ZX=890 bpm, CQNH=340/68 mmhg, SpO2=98.0 %, Resp=18 B/min, Comment=afib 12:27 PM .014 BMW Baxter 190cm guide wire across target lesion- successful. reused? No scoates 12:27 PM Time: 12:27 Heparin 2000 units Intravenous Given by Gabriela Lee RN scoates 12:30 PM Time: 12:27 Aggrastat Bolus: 37.5 ml Intravenous Given by Gabriela Lee RN Hurd pump scoates 12:30 PM Time: 12:30 Aggrastat 5mg/100ml 13.5 ml Intravenous Given by Gabriela Lee RN Hurd pump scoates 12:31 PM Lesion found in Mid LAD. Pre Stenosis: 70 Pre ANABELA Flow: 3: Complete and Brisk Flow/Perfusion scoates 12:31 PM HA=054 bpm, PRSE=528/88 mmhg, SpO2=96.0 %, Resp=23 B/min, EtCO2=23 mmHg, Comment=afib 12:31 PM 2.0 mm x 12 mm Emerge Monorail balloon across target lesion- successful. reused? No scoates 12:34 PM attempting to cross lesion with balloon scoates 12:34 PM balloon and wire removed for wire reshaping scoates 12:36 PM reinserting a wire scoates 12:36 PM JX=136 bpm, LTKU=039/79 mmhg, InZ2=909.0 %, Resp=15 B/min, Comment=afib 12:36 PM Time: 12:21 Patient comfortable and pain free: Yes scoates 12:36 PM Time: 12:21LOC: 4 = Oriented but drowsy scoates 12:39 PM bmw wire removed intact scoates 12:39 PM .014 [employer] Freezer 50 190cm guide wire across target lesion- successful. reused? No scoates 12:41 PM HR=95 bpm, KMAJ=415/77 mmhg, SpO2=99.0 %, Resp=17 B/min, Comment=afib 12:42 PM 2.0x12 balloon reinserted scoates 12:44 PM Balloon inflated @ 6 tex for 6 seconds scoates 12:44 PM Balloon inflated @ 6 tex for 10 seconds scoates 12:44 PM Balloon inflated @ 10 tex for 7 seconds scoates 12:46 PM Balloon catheter removed intact. scoates 12:46 PM HR=93 bpm, JTFY=628/67 mmhg, HzD1=908.0 %, Resp=15 B/min, Comment=afib 12:47 PM 2.25mm x 20mm Synergy drug-eluting stent across target lesion- successful Lot #[id number] scoates 12:48 PM Stent deployed @ 11 tex for 8 seconds scoates 12:49 PM Recorded Pressure: Ao, ZL=116, Condition=Condition 1 (Aorta) Ao 117/92/104 12:49 PM Stent balloon reinflated @ 12 tex for 5 seconds scoates 12:49 PM Recorded ECG: HO=943 Condition=Condition 1 12:50 PM Recorded Pressure: Ao, ZH=131, Condition=Condition 1 (Aorta) Ao 119/77/99 12:50 PM Stent delivery system removed intact. scoates 12:51 PM UK=320 bpm, ZILX=456/84 mmhg, SpO2=95.0 %, Resp=17 B/min, Comment=afib 12:51 PM NIBP STAT measurement started. 12:52 PM 2.5 mm x 12mm NC Emerge balloon across target lesion- successful. reused? No scoates 12:52 PM GY=101 bpm, ODYF=154/70 mmhg, SpO2=96.0 %, Resp=37 B/min 12:52 PM Balloon inflated @ 18 tex for 6 seconds scoates 12:52 PM Balloon inflated @ 16 tex for 4 seconds scoates 12:53 PM Balloon catheter removed intact. scoates 12:53 PM Time: 12:53 Nitroglycerin 100 mcg Intravenous Given by Tra Moctezuma MD scoates 12:55 PM Balloon catheter removed intact. scoates 12:55 PM Guide wire removed intact. scoates 12:55 PM Guide catheter removed intact. scoates 12:55 PM Bolus angiogram of right Femoral complete: 4 ml/sec for a total of 7 mls scoates 12:56 PM JW=148 bpm, UNYH=004/85 mmhg, SpO2=99.0 %, Resp=40 B/min 12:58 PM Procedure completed at 12:58 12/13/2018 scoates 12:58 PM What is the NYHA Class? y scoates 12:58 PM Did you address ANABELA flow and Dominance? Yes scoates 12:58 PM Coronary Dominance: right scoates 01:01 PM XU=699 bpm, RIWT=948/93 mmhg, SpO2=95 % 01:01 PM Sign out completed: Radiation Dose 963 mGy, 7162 cGy/cm2 Fluoro Time: 14.4 Isovue 370 - 200ml contrast 148 ml given by Devaughn Moctezuma MD. Complications: None. 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 Cardiac Rehab Consult needed: YesConfirmed administered medications: Yes scoates 01:01 PM Isovue 370 - 200ml,2 Bottle(s) used. scoates 01:01 PM Arterial sheath pulled, Angio-seal closure device used and was Successful [id number] S/N. scoates 01:01 PM Estimated Blood Loss: less than 20cc scoates 01:02 PM Post ECG Sr w/ pvcs scoates 01:02 PM Post Blood Pressure 139/85 scoates 01:02 PM 13:02 Post Pulses Bilateral DP & PT 2+ scoates 01:02 PM Information taught Cardiac Cath, PCI, and Angioseal scoates 01:02 PM Education needs Procedure, Plan of Care, and Responsibilities of Patient in Care scoates 01:02 PM Learning barriers :None scoates 01:02 PM Education Methods Verbal scoates 01:02 PM Education evaluation Able to repeat information scoates 01:02 PM Site status No bleeding/hematoma - Rt Groin as reported by Tasha Gao RT (R) at 13:02 scoates 01:02 PM Opsite applied scoates 01:03 PM Plavix, Effient or Brilinta given No, pt had already this am scoates 01:05 PM Patient out of room: 13:05 scoates 01:05 PM Family placed in consult room. scoates 01:05 PM Complications: None scoates 01:09 PM Lesion found in Proximal LAD. Pre Stenosis: 60 Pre ANABELA Flow: scoates 01:09 PM Lesion found in Distal LAD. Pre Stenosis: 60 Pre ANABELA Flow: scoates 01:11 PM Report given to Arminda RANGEL Pt taken to E Room #17. 13:11 scoates Complications Complication None None Hemodynamics Pressures Site Systolic/A Wave Diastolic/V Wave Mean AO 118 74 95 AO 113 72 91 AO 117 92 104 AO 119 77 99 Post Procedure Information Blood Pressure: 139/85 mmHg Rhythm: Sr w/ pvcs Post procedural instructions were given Closure Device Time Device Success/Fail 12/13/2018 1:06:00 PM Angio-Seal VIP Successful Site Checks Time Location Status Staff Sheath In? Note 01:02 PM Rt Groin No bleeding/hematoma Tasha Gao RT (R) Pulses Time Site Pre-Procedure Post-Procedure Note 12/13/2018 12:04:00 PM Bilateral DP 2+ 12/13/2018 12:04:00 PM Bilateral radial 2+ 1:02:00 PM Bilateral DP & PT 2+ Updated by Liliana Briggs RN on 12/13/2018 1:13:41 PM electronically signed on 12/13/2018 1:15:44 PM with status of Final
[2018-12-13] MEDS: Insulin DETEMIR 100 UNIT/ML X5UNITS SQ SCH (20:10)
[2018-12-14] MEDS: Levalbuterol Neb 1.25 MG/3 ML IH SCH ×4 (04:20→21:58)
[2018-12-14] MEDS: *HR* Enoxaparin 40 MG/0.4 ML SYRINGE SQ SCH (05:34)
[2018-12-14 05:50] LABS: Basophils % 0.1 %; Eosinophils # 0.1 K/mcL (0.0-0.6); Eosinophils % 0.5 %; Hematocrit 30.2 % (35.3-44.9); Hemoglobin 9.6 g/dL (11.5-15.4); Immature Granulocytes % 1.8 % (0-4); Lymphocytes # 1.2 K/mcL (0.6-4.6); Lymphocytes % 13.2 %; Mean Corpuscular HGB Conc 31.8 g/dL (31.6-35.5); Mean Corpuscular Hemoglobin 29.1 pg (28.0-33.3); Mean Corpuscular Volume 91.5 fL (83.0-100.0); Mean Platelet Volume 9.9 fL (9.4-12.4); Monocytes # 0.8 K/mcL (0.0-1.3); Monocytes % 8.9 %; Neutrophils # 6.9 K/mcL (1.6-8.9); Platelet Count 238 K/mcL (140-400); Red Cell Distribution Width 15.5 % (11.5-14.5); Segmented Neutrophils % 75.5 %
[2018-12-14 06:10] LABS: BUN/Creatinine Ratio 23 (6-26); Blood Urea Nitrogen 17 mg/dL (8-23); Carbon Dioxide 28 mEq/L (23-29); Chloride 103 mEq/L (98-107); Glucose 101 mg/dL (70-105); Magnesium 2.4 mg/dL (1.6-2.6); Osmolality,Calculated 292 (280-300); Potassium 3.5 mEq/L (3.5-5.1); Sodium 140 mEq/L (136-145); eGFR For Non-African Americans > 60 (> 60)
[2018-12-14] MEDS: Aspirin Enteric Coated 81 MG Tablet PO SCH (07:41)
[2018-12-14] MEDS: predniSONE 20 MG TABLET PO SCH (07:41)
[2018-12-14] MEDS: Furosemide 20 MG TABLET PO SCH (07:41)
[2018-12-14] MEDS: *HR* Ticagrelor 90 MG TABLET PO SCH ×2 (07:41→20:50)
[2018-12-14] MEDS: Metoprolol XL (24 HR) Succ 50 MG TAB.ER.24H PO SCH (08:03)
[2018-12-14] MEDS: Insulin LISPRO 300 UNITS/3 ML VIAL SQ SCH ×4 (08:03→21:38)
[2018-12-14] MEDS ORDERED: Levofloxacin 750 MG/150 ML 750 MG/150 ML BAG IVPB SCH (09:00)
[2018-12-14] MEDS: Budesonide/Formoterol 160/4.5 1 PUFF INH IH SCH ×2 (10:07→21:57)
[2018-12-14] MEDS: *HR* OxyCODONE Immed Rel 5 MG TABLET PO PRN (10:12)
--- NOTE | 2018-12-14 10:38 | Cardiology Progress Note ---
Date of Encounter: 12/14/18 Time of Encounter: 10:34 Assessment and Plan (1) CAD (coronary artery disease) Current Visit: Yes Status: Chronic Per cardiology: Known CAD s/p recent MS. Acute inferior lateral STEMI 11/16/18 and underwent PCI to occluded LCx. On 11/20/18 planned staged PCI to the RCA completed, patient also seen to have stenosis distal to LCX stent not previously seen (likely due to clot burden) that was intervened on. Underwent staged PCI/WADE yesterday to mLAD. DAPT (ASA and Brilinta) uninterrupted x 1 year. Pt verbalizes understanding. Continue Statin, BB. Right femoral access site mild ecchymosis. No bleeding or hematoma. Restrictions discussed. Cardiology signing off. Reconsult PRN. Will coordinate outpt follow-up. Qualifiers: Coronary Disease-Associated Artery/Lesion type: [place] artery [place] vs. transplanted heart: [place] heart Associated angina: without angina Qualified Code(s): I25.10 - Atherosclerotic heart disease of [place] coronary artery without angina pectoris (2) CHF (congestive heart failure) Current Visit: No Status: Acute Per cardiology: Acute on chronic systolic CHF reports NYHA class III symptoms. Bilateral pleural effusions noted per CTA. BNP 1449. Was given IV lasix 20mg x2 doses. TTE 11/17/18: LVEF 40-45%. Mild LVDD, segmental LV systolic dysfunction, normal rRV structure and function, mild MR, TR, moderate-severe PH, est RVSP is 55 mmHg; mid inferior lateral and basal inferior lateral perez were hypokinetic Limited TTE with LVEF 50%. Currently near euvolemic on exam. Continue PO Lasix 20mg daily. Strict i/os, fluid restrictions, daily weights. Continue BB. Will add low dose ACEi. Qualifiers: Heart failure type: systolic Heart failure chronicity: acute on chronic Qualified Code(s): I50.23 - Acute on chronic systolic (congestive) heart failure Discussion w patient/family: The assessment and plan as outlined above was discussed with the patient and/or family members who expressed understanding and agreement. All questions were answered. Thank you for involving us in the care of your patient. Please call with any questions. I will discuss all the above with Dr. Badillo and make changes as necessary. Subjective Principal diagnosis: Pneumonia Interval history: Pt reports dyspnea this AM, denies chest pain. S/P LHC yesterday with PCI/WADE to mLAD. Final report pending. Objective Vital Signs, Last 4 Hours Temp Pulse Resp BP Pulse Ox 12/14/18 08:24 97.9 F 107 16 126/86 99 Vital Signs Temp Pulse Resp BP Pulse Ox 12/14/18 08:24 97.9 F 107 16 126/86 99 12/14/18 04:20 17 97 12/14/18 04:00 98 F 107 18 120/72 96 12/14/18 00:00 98 F 100 18 121/87 95 12/13/18 21:33 17 97 12/13/18 20:00 98.1 F 102 18 111/78 96 12/13/18 16:42 98.0 F 121 16 106/83 92 12/13/18 15:46 16 98 12/13/18 15:01 99 118/78 12/13/18 15:00 97.8 F 100 15 118/78 98 12/13/18 14:30 97.8 F 118 16 145/86 98 12/13/18 13:30 97.9 F 103 16 124/86 93 12/13/18 13:15 97.9 F 113 14 126/95 Intake and Output 12/13/18 12/14/18 12/14/18 23:59 07:59 15:59 Intake Total 147.6 / 147.6 240 / 240 240 / 240 Output Total 900 / 900 250 / 250 1000 / 1000 Balance -752.4 / -752.4 -10 / -10 -760 / -760 Intake: IV Fluids 87.6 / 87.6 Aggrastat 12.5 MG/250 ML 12.5 87.6 / 87.6 mg In 250 ml @ 0.15 MCG/KG/MIN 13.014 mls/hr IVC .[id number] [facility] Rx#:[id number] Oral 60 / 60 240 / 240 240 / 240 Output: Urine 900 / 900 1000 / 1000 Catheter 250 / 250 Other: Meal Breakfast Percent of Meal Consumed 100% Stool Size Moderate Stool Consistency formed Stool Color Brown Weight 71 kg Blood Glucose* 211 81 Patient Weight 12/14/18 23:59 Weight 71 kg General: Conversant, No Apparent Distress HEENT: Atraumatic, Normocephaly, Mucus Membranes Moist Neck: Normal carotid pulses Cardiac: Reg Rate and Rhythm, Normal S1 and S2, No Murmur Lungs: Other (diminished) Neuro: Alert and responsive, No focal deficits noted Abdomen: Soft, Non-Tender Skin: No rashes noted on visualized skin Musculoskeletal: No Chest Wall Tenderness Extremities: No Clubbing, No Cyanosis, Normal Pulses, Other (mild BLE edema) Results 12/14/18 05:39 12/14/18 05:39 Lab Results 12/14/18 12/14/18 05:39 05:39 WBC 9.2 Hgb 9.6 L Hct 30.2 L Plt Count 238 Sodium 140 Potassium 3.5 Chloride 103 Carbon Dioxide 28 BUN 17 Creatinine 0.75 Glucose 101 Calcium 9.0 Magnesium 2.4 Short CBC 12/14/18 Range/Units 05:39 WBC 9.2 (4.3-11.1) K/mcL Hgb 9.6 L (11.5-15.4) g/dL Hct 30.2 L (35.3-44.9) % Plt Count 238 (140-400) K/mcL Neutrophils # 6.9 (1.6-8.9) K/mcL BMP 12/14/18 Range/Units 05:39 Sodium 140 (136-145) mEq/L Potassium 3.5 (3.5-5.1) mEq/L Chloride 103 (98-107) mEq/L Carbon Dioxide 28 (23-29) mEq/L BUN 17 (8-23) mg/dL Creatinine 0.75 (0.60-1.20) mg/dL Glucose 101 (70-105) mg/dL Calcium 9.0 (8.6-10.3) mg/dL Active Medications Amoxicillin/Clavulanate Potassium (Augmentin) 875 mg PO BIDWM [facility] Stop: 06/14/19 08:01 Last Admin: 12/14/18 07:41 Dose: 875 mg Aspirin (Aspirin Ec) 81 mg PO DAILY [facility] Stop: 06/09/19 09:01 Last Admin: 12/14/18 07:41 Dose: 81 mg Budesonide/Formoterol Fumarate (Symbicort) 2 puff IH BIDR [facility]; Protocol Stop: 06/09/19 22:01 Last Admin: 12/14/18 10:07 Dose: 2 puff Dextrose/Water (Dextrose 50% (Syg)) 25 ml IVP AD PRN PRN Reason: Hypoglycemia Stop: 06/08/19 09:52 Docusate Sodium (Colace) 100 mg PO BID PRN; Protocol PRN Reason: Constipation Stop: 06/10/19 12:14 Last Admin: 12/14/18 07:42 Dose: 100 mg Enoxaparin Sodium (Lovenox) 40 mg SQ 0600 [facility]; Protocol Stop: 06/09/19 06:01 Last Admin: 12/14/18 05:34 Dose: 40 mg Furosemide (Lasix) 20 mg PO DAILY [facility] Stop: 06/14/19 10:01 Last Admin: 12/14/18 07:41 Dose: 20 mg Glucagon (Glucagen) 1 mg IM ONCE PRN PRN Reason: Hypoglycemia Stop: 06/08/19 09:52 Glucose (Gluctose) 15 gm PO ONCE PRN PRN Reason: Hypoglycemia Stop: 06/08/19 09:52 Glucose (Gluctose) 30 gm PO ONCE PRN PRN Reason: Hypoglycemia Stop: 06/08/19 09:52 Dextrose (Dextrose 5%) 1,000 mls @ 100 mls/hr IVC .Q10H PRN PRN Reason: HYPOGLYCEMIA Stop: 06/08/19 09:52 Insulin Detemir (Levemir) 5 unit SQ HS [facility] Stop: 06/08/19 21:01 Last Admin: 12/13/18 20:10 Dose: 5 unit Insulin Human Lispro (Humalog) 0 units SQ HS [facility]; Protocol Stop: 06/08/19 21:01 Last Admin: 12/13/18 20:10 Dose: 2 units Insulin Human Lispro (Humalog) 0 units SQ TIDAC [facility]; Protocol Stop: 06/08/19 11:31 Last Admin: 12/14/18 08:03 Dose: Not Given Levalbuterol HCl (Xopenex) 1.25 mg IH [id number] [facility] Stop: 06/10/19 10:01 Last Admin: 12/14/18 10:07 Dose: 1.25 mg Melatonin (Melatonin) 3 mg PO HS PRN PRN Reason: Insomnia Stop: 06/12/19 09:37 Metoprolol Succinate (Toprol Xl) 50 mg PO DAILY [facility] Stop: 06/15/19 09:01 Last Admin: 12/14/18 08:03 Dose: 50 mg Naloxone HCl (Narcan) 0.4 mg IVP Q2MIN PRN PRN Reason: SEE COMMENTS Stop: 06/08/19 09:50 Omeprazole (Prilosec) 20 mg PO BIDAC [facility]; Protocol Stop: 06/12/19 16:31 Last Admin: 12/14/18 07:41 Dose: 20 mg Oxycodone HCl (Roxicodone) 5 mg PO Q6HR PRN; Protocol PRN Reason: Pain Stop: 06/08/19 11:32 Last Admin: 12/14/18 10:12 Dose: 5 mg Polyethylene Glycol (Miralax) 17 gm PO DAILY [facility] Stop: 06/13/19 09:01 Last Admin: 12/14/18 07:41 Dose: Not Given Prednisone (Prednisone) 40 mg PO DAILY [facility] Stop: 06/14/19 09:01 Last Admin: 12/14/18 07:41 Dose: 40 mg Promethazine HCl (Phenergan) 12.5 mg PO Q6HR PRN PRN Reason: Nausea And Vomiting Stop: 06/13/19 09:27 Rosuvastatin Calcium (Crestor) 20 mg PO HS [facility] Stop: 06/08/19 21:01 Last Admin: 12/13/18 20:09 Dose: 20 mg Sodium Chloride ([place] Nasal [place]) 2 spray NS Q2H PRN PRN Reason: Congestion Stop: 06/08/19 22:29 Last Admin: 12/07/18 23:18 Dose: 2 spray Ticagrelor (Brilinta) 90 mg PO BID [facility] Stop: 06/08/19 21:01 Last Admin: 12/14/18 07:41 Dose: 90 mg - Imaging and Cardiology Echo: report reviewed Cardiac cath: report reviewed - EKG Interpretation EKG results cardiology: other (12 hr tele AVG HR 93, SR with ectopy) Consult Discharge Plan - Plan Referrals: Linnea Quintero DO [Primary Care Provider] - 12/09/18 1:30 pm
--- NOTE | 2018-12-14 12:26 | Internal Med Progress Note ---
Hospitalist Progress Note - Encounter Date of Encounter: 12/14/18 Time of Encounter: 11:00 - Subjective Interval History: States that her breathing is better today. Underwent LHC uneventfully yesterday with PCI to mLAD. No fever/chills, chest pain, N/V, diaphoresis. - Exam Vitals: Temp Pulse Resp BP Pulse Ox 97.9 F 107 16 126/86 98 12/14/18 08:24 12/14/18 08:24 12/14/18 10:07 12/14/18 08:24 12/14/18 10:07 Exam: GENERAL: Alert, appears comfortable, cooperative LUNGS: Improving bibasilar crackles. Unable to appreciate any wheezes CARDIAC: Normal S1 and S2; no murmurs. Trace LE pitting edema ABDOMEN: Abdomen soft, non-tender, BS normal PULSES: 2+ radial, 2+ carotid - Assessment and Plan (1) CAD (coronary artery disease) Current Visit: Yes Status: Chronic Assessment and Plan: presented as a STEMI on 11/16/18 and was taken urgently to the laborer salvage and underwent PCI to occluded LCx. On 11/20/18 planned staged PCI to the RCA completed, patient also seen to have stenosis distal to LCX stent not previously seen (likely due to clot burden) that was intervened on. There was a 70% stenosis in the mLAD remaining underwent staged LHC/PCI yesterday. continue DAPT, bb, and statin. low dose MANJULA-i added appreciate cardiology input (2) Multifocal pneumonia Current Visit: Yes Status: Acute Assessment and Plan: Chest CTA showed multifocal PNA. Oxygenation improving with IV Abx de-escalated to PO Augmentin yesterday, complete on 12/17 taper steroids, will need 2 week course per pulmonary Will need repeat imaging in 8 weeks to confirm resolution. (3) Acute systolic congestive heart failure Current Visit: No Status: Acute Assessment and Plan: lasix was on hold due to borderline BP resumed yesterday as she appeared to be mildly volume overloaded continue lasix 20mg QD keep monitoring I&O (4) Asthma exacerbation Current Visit: Yes Status: Acute Assessment and Plan: D6 steroids. will start to taper over the course of 2 weeks switching abx to PO Augmentin Follow up in pulm clinic in 2-4 weeks post-discharge. (5) Diabetes Current Visit: Yes Status: Acute Assessment and Plan: Continue sliding scale insulin and serial Accu-Cheks. (6) DVT prophylaxis Current Visit: No Status: Acute Assessment and Plan: lovenox - Time Spent with Patient Total time spent is greater than 50% in coordination of care (as documented) at patient's floor/unit and/or counseling patient: Plan of Care Discussed with: patient Internal Medicine: Result - Labs CBC & Chem 7: 12/14/18 05:39 12/14/18 05:39 Labs: Short CBC 12/14/18 Range/Units 05:39 WBC 9.2 (4.3-11.1) K/mcL Hgb 9.6 L (11.5-15.4) g/dL Hct 30.2 L (35.3-44.9) % Plt Count 238 (140-400) K/mcL Neutrophils # 6.9 (1.6-8.9) K/mcL BMP 12/14/18 05:39 Sodium 140 Potassium 3.5 Chloride 103 Carbon Dioxide 28 BUN 17 Creatinine 0.75 Glucose 101 Calcium 9.0 - ABG Interpretation ABG results: ABG ABG pH 7.53 pH Units (7.32-7.45) H 12/08/18 00:23 ABG pCO2 30 mmHg (35-45) L 12/08/18 00:23 ABG pO2 62 mmHg (85-104) L 12/08/18 00:23 ABG O2 Saturation 94 % (95-98) L 12/08/18 00:23 PT/INR, D-dimer PT 13.7 Seconds (9.4-12.1) H 12/13/18 09:41 D-Dimer 887 ng/mLFEU (0-500) H 12/07/18 07:35 Consult Discharge Plan - Plan Referrals: Linnea Quintero DO [Primary Care Provider] - 12/09/18 1:30 pm (1) CAD (coronary artery disease) Qualifiers: Coronary Disease-Associated Artery/Lesion type: [place] artery [place] vs. 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
[2018-12-15] MEDS: Levalbuterol Neb 1.25 MG/3 ML IH SCH ×4 (03:54→22:07)
[2018-12-15 05:18] LABS: BUN/Creatinine Ratio 23 (6-26); Blood Urea Nitrogen 17 mg/dL (8-23); Calcium 8.8 mg/dL (8.6-10.3); Carbon Dioxide 28 mEq/L (23-29); Chloride 103 mEq/L (98-107); Glucose 139 mg/dL (70-105); Magnesium 2.2 mg/dL (1.6-2.6); Osmolality,Calculated 290 (280-300); Potassium 3.4 mEq/L (3.5-5.1); Sodium 138 mEq/L (136-145); eGFR For Non-African Americans > 60 (> 60)
[2018-12-15] MEDS: *HR* Enoxaparin 40 MG/0.4 ML SYRINGE SQ SCH (05:42)
[2018-12-15] MEDS: *HR* OxyCODONE Immed Rel 5 MG TABLET PO PRN ×2 (05:43→23:02)
[2018-12-15] MEDS: *HR* Ticagrelor 90 MG TABLET PO SCH ×2 (08:05→21:34)
[2018-12-15] MEDS: predniSONE 20 MG TABLET PO SCH (08:05)
[2018-12-15] MEDS: Aspirin Enteric Coated 81 MG Tablet PO SCH (08:05)
[2018-12-15] MEDS: Metoprolol XL (24 HR) Succ 50 MG TAB.ER.24H PO SCH (08:06)
[2018-12-15] MEDS: Furosemide 20 MG TABLET PO SCH (08:06)
[2018-12-15] MEDS: Insulin LISPRO 300 UNITS/3 ML VIAL SQ SCH ×4 (08:07→21:34)
[2018-12-15] MEDS: Budesonide/Formoterol 160/4.5 1 PUFF INH IH SCH ×2 (09:59→22:07)
--- NOTE | 2018-12-15 12:51 | Electrocardiograph Report ---
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
--- NOTE | 2018-12-15 16:32 | Internal Med Progress Note ---
Hospitalist Progress Note - Encounter Date of Encounter: 12/15/18 Time of Encounter: 13:00 - Subjective Interval History: States that her breathing is about the same yesterday. No fever/chills, chest pain, N/V, diaphoresis. - Exam Vitals: Temp Pulse Resp BP Pulse Ox 98 F 108 16 114/62 100 12/15/18 15:14 12/15/18 15:14 12/15/18 15:36 12/15/18 15:14 12/15/18 15:36 Exam: GENERAL: Alert, appears comfortable, cooperative LUNGS: Improving aeration in both lung wilkerson with minimal bibasilar crackles. Unable to appreciate any wheezes CARDIAC: Normal S1 and S2; no murmurs. Trace LE pitting edema ABDOMEN: Abdomen soft, non-tender, BS normal PULSES: 2+ radial, 2+ carotid - Assessment and Plan (1) CAD (coronary artery disease) Current Visit: Yes Status: Chronic Assessment and Plan: presented as a STEMI on 11/16/18 and was taken urgently to the chemical laboratory technician and underwent PCI to occluded LCx. On 11/20/18 planned staged PCI to the RCA completed, patient also seen to have stenosis distal to LCX stent not previously seen (likely due to clot burden) that was intervened on. There was a 70% stenosis in the mLAD remaining underwent staged LHC/PCI 12/13 continue DAPT, bb, and statin. low dose MANJULA-i added appreciate cardiology input, for outpatient follow up (2) Multifocal pneumonia Current Visit: Yes Status: Acute Assessment and Plan: Chest CTA showed multifocal PNA. Oxygenation improving with IV Abx de-escalated to PO Augmentin yesterday, complete on 12/17 taper steroids, will need 2 week course per pulmonary Will need repeat imaging in 8 weeks to confirm resolution. (3) Acute systolic congestive heart failure Current Visit: No Status: Acute Assessment and Plan: lasix was on hold due to borderline BP resumed on 12/13 as she appeared to be mildly volume overloaded. Tolerating well continue lasix 20mg QD keep monitoring I&O (4) Asthma exacerbation Current Visit: Yes Status: Acute Assessment and Plan: D7 steroids. will start to taper over the course of 2 weeks abx switched to PO Augmentin Follow up in pulm clinic in 2-4 weeks post-discharge. (5) Diabetes Current Visit: Yes Status: Acute Assessment and Plan: Continue sliding scale insulin and serial Accu-Cheks. (6) DVT prophylaxis Current Visit: No Status: Acute Assessment and Plan: lovenox - Time Spent with Patient Total time spent is greater than 50% in coordination of care (as documented) at patient's floor/unit and/or counseling patient: Plan of Care Discussed with: patient (discussed with social work) Internal Medicine: Result - Labs CBC & Chem 7: 12/14/18 05:39 12/15/18 03:59 Labs: BMP 12/15/18 03:59 Sodium 138 Potassium 3.4 L Chloride 103 Carbon Dioxide 28 BUN 17 Creatinine 0.73 Glucose 139 H Calcium 8.8 - ABG Interpretation ABG results: ABG ABG pH 7.53 pH Units (7.32-7.45) H 12/08/18 00:23 ABG pCO2 30 mmHg (35-45) L 12/08/18 00:23 ABG pO2 62 mmHg (85-104) L 12/08/18 00:23 ABG O2 Saturation 94 % (95-98) L 12/08/18 00:23 PT/INR, D-dimer PT 13.7 Seconds (9.4-12.1) H 12/13/18 09:41 D-Dimer 887 ng/mLFEU (0-500) H 12/07/18 07:35 Consult Discharge Plan - Plan Instructions: Myocardial Infarction (DC), Heart Failure (DC), Chest Pain (DC), Left Heart Catheterization (DC), Right Heart Catheterization (DC), Asthma (DC), Acute Respiratory Distress Syndrome (DC), Urinary Tract Infection in Women (DC), Coronary Intravascular Stent Placement (DC), Diabetes Mellitus Type 2 in Adults (DC), Chronic Obstructive Pulmonary Disease (DC), Anemia (GEN), Pneumonia (DC) Referrals: Linnea Quintero DO [Primary Care Provider] - 12/09/18 1:30 pm Prescriptions: Amoxicillin/Clavulanate [Augmentin] 875 mg PO BIDWM 3 Days #6 tablet HYDROcodone/Acet 5/325 mg [[place] 5-325 mg] 0.5 tab PO Q6H PRN 5 Days #10 tablet PRN Reason: Pain Lisinopril [Zestril] 2.5 mg PO DAILY #30 tablet Metoprolol XL (24 HR) Succ [Toprol Xl] 50 mg PO DAILY #30 tab.er.24h predniSONE [PredniSONE] 40 mg PO DAILY 6 Days #9 tablet (1) CAD (coronary artery disease) Qualifiers: Coronary Disease-Associated Artery/Lesion type: [place] artery [place] vs. 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
[2018-12-16] MEDS: Levalbuterol Neb 1.25 MG/3 ML IH SCH ×3 (04:41→15:45)
[2018-12-16] MEDS: *HR* Enoxaparin 40 MG/0.4 ML SYRINGE SQ SCH (05:48)
[2018-12-16 06:07] LABS: Basophils % 0.2 %; Eosinophils % 0.5 %; Hematocrit 29.9 % (35.3-44.9); Hemoglobin 9.3 g/dL (11.5-15.4); Immature Granulocytes % 2.5 % (0-4); Lymphocytes # 1.2 K/mcL (0.6-4.6); Lymphocytes % 14.4 %; Mean Corpuscular HGB Conc 31.1 g/dL (31.6-35.5); Mean Corpuscular Hemoglobin 28.4 pg (28.0-33.3); Mean Corpuscular Volume 91.4 fL (83.0-100.0); Mean Platelet Volume 10.8 fL (9.4-12.4); Monocytes # 0.9 K/mcL (0.0-1.3); Monocytes % 10.3 %; Platelet Count 223 K/mcL (140-400); Red Blood Count 3.27 M/mcL (3.82-4.97); Red Cell Distribution Width 15.3 % (11.5-14.5); Segmented Neutrophils % 72.1 %
[2018-12-16 06:22] LABS: BUN/Creatinine Ratio 25 (6-26); Blood Urea Nitrogen 18 mg/dL (8-23); Calcium 8.9 mg/dL (8.6-10.3); Carbon Dioxide 27 mEq/L (23-29); Chloride 104 mEq/L (98-107); Glucose 122 mg/dL (70-105); Magnesium 2.1 mg/dL (1.6-2.6); Osmolality,Calculated 287 (280-300); Potassium 3.8 mEq/L (3.5-5.1); Sodium 137 mEq/L (136-145); eGFR For Non-African Americans > 60 (> 60)
[2018-12-16] MEDS: Insulin LISPRO 300 UNITS/3 ML VIAL SQ SCH ×2 (07:40→12:14)
[2018-12-16] MEDS: Furosemide 20 MG TABLET PO SCH (08:01)
[2018-12-16] MEDS: Aspirin Enteric Coated 81 MG Tablet PO SCH (08:01)
[2018-12-16] MEDS: *HR* Ticagrelor 90 MG TABLET PO SCH (08:01)
[2018-12-16] MEDS: Metoprolol XL (24 HR) Succ 50 MG TAB.ER.24H PO SCH (08:02)
[2018-12-16] MEDS: predniSONE 20 MG TABLET PO SCH (08:02)
[2018-12-16] MEDS: Budesonide/Formoterol 160/4.5 1 PUFF INH IH SCH (10:23)
--- NOTE | 2018-12-16 12:35 | Discharge Summary ---
- NOTES TO OUTPATIENT PROVIDER Notes to Outpatient Provider: Patient was admitted for hypoxic respiratory failure secondary to multifocal pneumonia, asthma exacerbation and systolic heart failure. Also had a lesion in mLAD that was planned to be intervened. Improved with IV abx, steroids, and resumpton of lasix with her O2 status back to 3L. She also had PCI to mLAD on 12/13 uneventfully. Was unable to start MANJULA-i due to borderline BP. She will be discharged home on 3 more days of abx and tapering course of steroid. Follow up with cardiology as outpatient and repeat CT chest in 406 weeks to confirm resolution of multifocal PNA with pulmonary follow up in 2-4 weeks. Orders not resulted at time of discharge: Pending orders 12/07/18 11:33 Culture,Sputum with Gram Stain [RM] Stat 12/13/18 13:07 ECG 12 lead ECG [ECG] Stat 12/14/18 06:00 ECG 12 lead ECG [ECG] AM 0600 Date of Encounter: 12/16/18 Time of Encounter: 11:30 - Discharge Diagnosis (1) CAD (coronary artery disease) Priority: Secondary Status: Chronic Qualifiers: Coronary Disease-Associated Artery/Lesion type: [place] artery [place] vs. transplanted heart: [place] heart Associated angina: without angina Qualified Code(s): I25.10 - Atherosclerotic heart disease of [place] coronary artery wit hout angina pectoris (2) Multifocal pneumonia Priority: Primary Status: Acute (3) Acute systolic congestive heart failure Priority: Secondary Status: Acute (4) Asthma exacerbation Priority: Secondary Status: Acute Qualifiers: Asthma severity: mild Asthma persistence: unspecified Qualified Code(s): J45.901 - Unspecified asthma with (acute) exacerbation (5) Diabetes Priority: Secondary Status: Acute Qualifiers: Diabetes mellitus type: type 2 Diabetes mellitus residential insulin use: with oil heaterman use Diabetes mellitus complication status: without complication Qualified Code(s): E11.9 - Type 2 diabetes mellitus without complications; Z79.4 - intermodal customer service (current) use of insulin (6) DVT prophylaxis Priority: Secondary Status: Acute Hospital course: Ms. Marin is a 82 year old female Discharge discussed with: patient, nurse - Time Spent with Patient Total time spent providing and/or coordinating discharge services: 33 mins - Discharge Medications Prescriptions: Amoxicillin/Clavulanate [Augmentin] 875 mg PO BIDWM 3 Days #6 tablet HYDROcodone/Acet 5/325 mg [[place] 5-325 mg] 0.5 tab PO Q6H PRN 5 Days #10 tablet PRN Reason: Pain Metoprolol XL (24 HR) Succ [Toprol Xl] 50 mg PO DAILY #30 tab.er.24h predniSONE [PredniSONE] 40 mg PO DAILY 6 Days #9 tablet Home Medications: Albuterol Sulfate [Albuterol Inhaler] 2 puff IH Q4H PRN 09/26/18 [History] Beclomethasone Dip 40mcg REDIH [Qvar 40 Mcg Redihaler] 40 mcg IH BID 09/26/18 [History] Fluticasone Propionate [Aller-Deshaun] 1 spr NS DAILY PRN 09/26/18 [History] Docusate [Colace] 100 mg PO BID capsule 09/29/18 [Rx] Aspirin Enteric Coated [Aspirin EC] 81 mg PO DAILY tablet. 11/28/18 [Rx] Insulin DETEMIR [Levemir] 5 unit SQ HS [id number] 11/28/18 [Rx] Insulin LISPRO [HumaLOG] 0 units SQ HS vial 11/28/18 [Rx] Insulin LISPRO [HumaLOG] 0 units SQ TIDAC vial 11/28/18 [Rx] Melatonin 3 mg PO HS PRN tablet 11/28/18 [Rx] Omeprazole [PriLOSEC] 20 mg PO BIDAC capsule. 11/28/18 [Rx] Polyethylene Glycol 3350 [MiraLAX] 17 gm PO DAILY powd.pack 11/28/18 [Rx] Rosuvastatin [Crestor] 20 mg PO HS tablet 11/28/18 [Rx] Ticagrelor [Brilinta] 90 mg PO BID tablet 11/28/18 [Rx] Furosemide [Lasix] 20 mg PO DAILY 12/07/18 [History] Amoxicillin/Clavulanate [Augmentin] 875 mg PO BIDWM 3 Days #6 tablet 12/15/18 [Rx] HYDROcodone/Acet 5/325 mg [[place] 5-325 mg] 0.5 tab PO Q6H PRN 5 Days #10 tablet 12/15/18 [Rx] Metoprolol XL (24 HR) Succ [Toprol Xl] 50 mg PO DAILY #30 tab.er.24h 12/15/18 [Rx] predniSONE [PredniSONE] 40 mg PO DAILY 6 Days #9 tablet 12/15/18 [Rx] Allergies/Adverse Reactions: Allergy/AdvReac Type Severity Reaction Status Date / Time No Known Allergies Allergy Verified 09/25/18 07:45 Date of admission: 12/08/18 14:18 Primary care physician: Mirna Stoner Consults: 12/07/18 10:28 Consult to Cardiology [CONS] Stat Comment: Consulting Provider: Minoo Vee Reason for Consult: chest pain. Elevated troponon. Recent stent Call Completed: Yes 12/07/18 12:34 Consult to Cvicu Rn [CONS] Routine Reason for SW Consult: Pt from [facility] d/c planning 12/08/18 11:23 Consult to Pulmonology [CONS] Routine Consulting Provider: [facility]anda Reason for Consult: REBECCA Time Notified: 11:24 Call Completed: Yes 12/10/18 11:17 Consult to Physical Therapy [CONS] Routine Comment: Evaluate, develop and implement POC Reason for Consult: weakness Does patient have active BEDREST order?: No Is patient medically & hemodynamically stable?: No Patient assessed for mobility or mobilized this visit?: Yes 12/10/18 11:18 Consult to Occupational Therapy [CONS] Routine Comment: Evaluate, develop and implement POC Reason for Consult: weakness Does patient have active BEDREST order?: No Is patient medically & hemodynamically stable?: Yes Patient assessed for mobility or mobilized this visit?: Yes 12/13/18 13:07 Consult to Cardiac Rehabilitation-Phase1 [CONS] Routine Comment: Reason for Consult: post op PCI Call Completed: Yes 12/14/18 08:29 Consult to Cardiology [CONS] Routine Comment: Consulting Provider: Minoo Vee Reason for Consult: stage pci Call Completed: Yes - Constitutional Vitals: Temp Pulse Resp BP Pulse Ox 97.6 F 85 16 95/61 94 12/16/18 08:18 12/16/18 08:18 12/16/18 10:26 12/16/18 08:18 12/16/18 10:26 General appearance: Present: A&O X 3, pleasant, no acute distress Exam: GENERAL: Alert, appears comfortable, cooperative LUNGS: Improving aeration in both lung wilkerson with minimal bibasilar crackles. Unable to appreciate any wheezes CARDIAC: Normal S1 and S2; no murmurs. Trace LE pitting edema ABDOMEN: Abdomen soft, non-tender, BS normal PULSES: 2+ radial, 2+ carotid - Patient Status Disposition: Transfer SNF Condition: Fair Functional capacity at discharge: uses cane/walker Overall status at discharge: patient is progressing back to baseline - Discharge Instructions Instructions: Heart Failure (DC), Left Heart Catheterization (DC), Asthma (DC), Acute Respiratory Distress Syndrome (DC), Coronary Intravascular Stent Placement (DC), Diabetes Mellitus Type 2 in Adults (DC), Chronic Obstructive Pulmonary Disease (DC), Pneumonia (DC) Follow Up With: Linnea Quintero DO [Primary Care Provider] - 12/09/18 1:30 pm Devaughn Moctezuma [Partnered Physician] - Loi Villegas MD [Partnered Physician] - Additional Instructions: Complete abx and prednisone as prescribed Can resume home dose of lasix Follow up with cardiology Repeat CT in 4-6 weeks and follow up with pulmonary in 2-4 weeks
[2018-12-16 12:38] VITALS: BP 94/64
--- NOTE | 2018-12-16 12:42 | Physician Discharge Referral ---
ExtendedCare Referral Info Institutional Level of Care: Skilled - Diagnosis (1) CAD (coronary artery disease) Priority: Secondary Status: Chronic (2) Multifocal pneumonia Priority: Primary Status: Acute (3) Acute systolic congestive heart failure Priority: Secondary Status: Acute (4) Asthma exacerbation Priority: Secondary Status: Acute (5) Diabetes Priority: Secondary Status: Acute (6) DVT prophylaxis Priority: Secondary Status: Acute - Transfer Medications Prescriptions: Amoxicillin/Clavulanate [Augmentin] 875 mg PO BIDWM 3 Days #6 tablet HYDROcodone/Acet 5/325 mg [[place] 5-325 mg] 0.5 tab PO Q6H PRN 5 Days #10 tablet PRN Reason: Pain Metoprolol XL (24 HR) Succ [Toprol Xl] 50 mg PO DAILY #30 tab.er.24h predniSONE [PredniSONE] 40 mg PO DAILY 6 Days #9 tablet Home Medications: Albuterol Sulfate [Albuterol Inhaler] 2 puff IH Q4H PRN 09/26/18 [History] Beclomethasone Dip 40mcg REDIH [Qvar 40 Mcg Redihaler] 40 mcg IH BID 09/26/18 [History] Fluticasone Propionate [Aller-Deshaun] 1 spr NS DAILY PRN 09/26/18 [History] Docusate [Colace] 100 mg PO BID capsule 09/29/18 [Rx] Aspirin Enteric Coated [Aspirin EC] 81 mg PO DAILY tablet. 11/28/18 [Rx] Insulin DETEMIR [Levemir] 5 unit SQ HS [id number] 11/28/18 [Rx] Insulin LISPRO [HumaLOG] 0 units SQ HS vial 11/28/18 [Rx] Insulin LISPRO [HumaLOG] 0 units SQ TIDAC vial 11/28/18 [Rx] Melatonin 3 mg PO HS PRN tablet 11/28/18 [Rx] Omeprazole [PriLOSEC] 20 mg PO BIDAC capsule. 11/28/18 [Rx] Polyethylene Glycol 3350 [MiraLAX] 17 gm PO DAILY powd.pack 11/28/18 [Rx] Rosuvastatin [Crestor] 20 mg PO HS tablet 11/28/18 [Rx] Ticagrelor [Brilinta] 90 mg PO BID tablet 11/28/18 [Rx] Furosemide [Lasix] 20 mg PO DAILY 12/07/18 [History] Amoxicillin/Clavulanate [Augmentin] 875 mg PO BIDWM 3 Days #6 tablet 12/15/18 [Rx] HYDROcodone/Acet 5/325 mg [[place] 5-325 mg] 0.5 tab PO Q6H PRN 5 Days #10 tablet 12/15/18 [Rx] Metoprolol XL (24 HR) Succ [Toprol Xl] 50 mg PO DAILY #30 tab.er.24h 12/15/18 [Rx] predniSONE [PredniSONE] 40 mg PO DAILY 6 Days #9 tablet 12/15/18 [Rx] Allergies/Adverse Reactions: Allergy/AdvReac Type Severity Reaction Status Date / Time No Known Allergies Allergy Verified 09/25/18 07:45 - Respiratory Orders Oxygen / L per min (3L) Smoking Cessation: Smoking cessation has been advised. For more information, call the [place] Tobacco Quit Line at 3-894-KINI-NOW. - Rehabiliation Orders Rehab Orders: Evaluation for Physical Therapy, Evaluation for Occupational Therapy CERTIFICATION: I certify that the transfer of the above named patient to an Extended Care Facility is necessary for the continuing treatment of the diagnosis listed. The above information is true and accurate reflection of patient's current condition. Confidential - Redisclosure prohibited without a patient's written consent.
[2018-12-16] MEDS: *HR* OxyCODONE Immed Rel 5 MG TABLET PO PRN (15:41)
== END 2018-12-16 17:17 | DRG 981 ==
LOC: EMEROOARM 07:24 → 2SOUTHHOLD 07:24 → SUATTDRO 11:02 → 2SOUTHHOLD 12:10 → SUATTDRO 12-08 14:18 → 2NENU 12-12 04:56
PROVIDERS: ADMIT Internal Medicine; ATTEND Internal Medicine

== ENCOUNTER 2020-05-09 13:49 | Observation (INO) ==
[2020-05-09 15:49] LABS: Basophils % 0.7 %; Eosinophils % 0.4 %; Hematocrit 31.4 % (35.3-44.9); Hemoglobin 9.7 g/dL (11.5-15.4); Immature Granulocytes % 2.9 % (0-4); Lymphocytes % 17.9 %; Mean Corpuscular HGB Conc 30.9 g/dL (31.6-35.5); Mean Corpuscular Hemoglobin 29.9 pg (28.0-33.3); Mean Corpuscular Volume 96.9 fL (83.0-100.0); Mean Platelet Volume 10.4 fL (9.4-12.4); Monocytes # 0.4 K/mcL (0.0-1.3); Monocytes % 7.1 %; Neutrophils # 3.9 K/mcL (1.6-8.9); Nucleated Red Blood Cells 0.4 /100 WBC (0); Platelet Count 207 K/mcL (140-400); Red Blood Count 3.24 M/mcL (3.82-4.97); Red Cell Distribution Width 15.3 % (11.5-14.5); White Blood Count 5.5 K/mcL (4.3-11.1)
[2020-05-09 16:12] LABS: Alanine Aminotransferase 13 Units/L (7-52); Albumin 4.1 g/dL (3.5-5.7); Albumin/Globulin Ratio 1.5 (1.1-2.2); Alkaline Phosphatase 123 Units/L (34-104); Aspartate Amino Transferase 16 Units/L (13-39); BUN/Creatinine Ratio 21 (6-26); Bilirubin,Total 1.1 mg/dL (0.3-1.0); Blood Urea Nitrogen 17 mg/dL (8-23); Calcium 9.5 mg/dL (8.6-10.3); Carbon Dioxide 26 mEq/L (23-29); Chloride 104 mEq/L (98-107); Globulin 2.8 g/dL (2.4-3.5); Glucose 109 mg/dL (70-105); Lipase 5 Units/L (11-82); Osmolality,Calculated 284 (280-300); Potassium 4.4 mEq/L (3.5-5.1); Sodium 136 mEq/L (136-145); Total Protein 6.9 g/dL (6.4-8.9); Troponin I 0.03 ng/mL (< 0.04); eGFR For African Americans > 60 (> 60); eGFR For Non-African Americans > 60 (> 60)
[2020-05-09] MEDS ORDERED: *HR* FentaNYL (PF) 100 MCG/2 ML VIAL IVP STA (17:44)
[2020-05-09] MEDS ORDERED: Naloxone 0.4 MG/ML INJ IVP PRN (17:50)
[2020-05-09] MEDS ORDERED: polyethylene glycoL 3350 17 GM POWD.PACK PO PRN (17:51)
[2020-05-09] MEDS ORDERED: *HR* Dextrose 50 % in Water (Syg) 50 ML SYRINGE IVP PRN (17:52)
[2020-05-09] MEDS ORDERED: Dextrose Gel 15 GM/37.5 ML TUBE PO PRN ×2 (17:52)
[2020-05-09] MEDS ORDERED: D5% in Water 1,000 ML IVC PRN (17:52)
[2020-05-09] MEDS ORDERED: *HR* Ticagrelor 90 MG TABLET PO SCH (21:00)
[2020-05-09] MEDS: *HR* HYDROcodone/Acet 5/325 mg TABLET PO PRN (21:31)
[2020-05-09] MEDS: Ondansetron 4 MG/2 ML VIAL IVP PRN (23:16)
[2020-05-09] MEDS: Acetaminophen 325 MG TABLET PO PRN (23:22)
[2020-05-10] MEDS ORDERED: Prochlorperazine 10 MG/2 ML VIAL IVP PRN (02:29)
[2020-05-10] MEDS: *HR* HYDROcodone/Acet 5/325 mg TABLET PO PRN ×3 (05:14→21:04)
[2020-05-10] MEDS: *HR* Enoxaparin 40 MG/0.4 ML SYRINGE SQ SCH (05:15)
[2020-05-10 05:40] LABS: Basophils # 0.1 K/mcL (0.0-0.2); Basophils % 0.9 %; Hemoglobin 9.4 g/dL (11.5-15.4); Immature Granulocytes % 3.1 % (0-4); Lymphocytes # 0.6 K/mcL (0.6-4.6); Lymphocytes % 11.4 %; Mean Corpuscular HGB Conc 31.3 g/dL (31.6-35.5); Mean Corpuscular Hemoglobin 29.7 pg (28.0-33.3); Mean Corpuscular Volume 94.6 fL (83.0-100.0); Mean Platelet Volume 10.7 fL (9.4-12.4); Monocytes # 0.5 K/mcL (0.0-1.3); Neutrophils # 4.1 K/mcL (1.6-8.9); Platelet Count 170 K/mcL (140-400); Red Blood Count 3.17 M/mcL (3.82-4.97); Red Cell Distribution Width 15.3 % (11.5-14.5); Segmented Neutrophils % 75.6 %; White Blood Count 5.4 K/mcL (4.3-11.1)
[2020-05-10 05:57] LABS: BUN/Creatinine Ratio 22 (6-26); Blood Urea Nitrogen 16 mg/dL (8-23); Calcium 9.1 mg/dL (8.6-10.3); Carbon Dioxide 22 mEq/L (23-29); Chloride 104 mEq/L (98-107); Glucose 156 mg/dL (70-105); Magnesium 2.4 mg/dL (1.6-2.6); Osmolality,Calculated 284 (280-300); Potassium 4.2 mEq/L (3.5-5.1); Sodium 135 mEq/L (136-145); eGFR For African Americans > 60 (> 60); eGFR For Non-African Americans > 60 (> 60)
[2020-05-10] MEDS: Metoprolol XL (24 HR) Succ 25 MG TAB.ER.24H PO SCH (07:41)
[2020-05-10] MEDS: Furosemide 20 MG TABLET PO SCH (07:41)
[2020-05-10] MEDS: Insulin LISPRO 300 UNITS/3 ML VIAL SQ SCH ×3 (07:41→16:50)
[2020-05-10] MEDS ORDERED: TICAGRELOR 60 MG PO SCH (09:00)
[2020-05-10] MEDS ORDERED: Metoprolol XL (24 HR) Succ 50 MG TAB.ER.24H PO SCH (09:00)
[2020-05-10] MEDS: Ondansetron 4 MG/2 ML VIAL IVP PRN ×2 (11:46→21:04)
[2020-05-10] MEDS: Acetaminophen 325 MG TABLET PO PRN (11:48)
[2020-05-11] MEDS: *HR* HYDROcodone/Acet 5/325 mg TABLET PO PRN ×2 (05:29→12:03)
[2020-05-11] MEDS: Ondansetron 4 MG/2 ML VIAL IVP PRN (05:29)
[2020-05-11] MEDS: *HR* Enoxaparin 40 MG/0.4 ML SYRINGE SQ SCH (05:30)
[2020-05-11] MEDS: Insulin LISPRO 300 UNITS/3 ML VIAL SQ SCH ×3 (07:17→16:51)
[2020-05-11] MEDS: Loratadine 10 MG TABLET PO SCH (07:18)
[2020-05-11] MEDS: Furosemide 20 MG TABLET PO SCH (07:19)
[2020-05-11] MEDS: Metoprolol XL (24 HR) Succ 25 MG TAB.ER.24H PO SCH (07:20)
[2020-05-11 07:39] LABS: Basophils # 0.1 K/mcL (0.0-0.2); Basophils % 0.5 %; Hematocrit 34.4 % (35.3-44.9); Hemoglobin 10.5 g/dL (11.5-15.4); Immature Granulocytes % 2.3 % (0-4); Lymphocytes # 0.5 K/mcL (0.6-4.6); Lymphocytes % 4.2 %; Mean Corpuscular HGB Conc 30.5 g/dL (31.6-35.5); Mean Corpuscular Hemoglobin 29.4 pg (28.0-33.3); Mean Corpuscular Volume 96.4 fL (83.0-100.0); Mean Platelet Volume 10.2 fL (9.4-12.4); Monocytes # 0.7 K/mcL (0.0-1.3); Monocytes % 6.5 %; Neutrophils # 9.2 K/mcL (1.6-8.9); Nucleated Red Blood Cells 0.2 /100 WBC (0); Platelet Count 168 K/mcL (140-400); Red Blood Count 3.57 M/mcL (3.82-4.97); Red Cell Distribution Width 15.8 % (11.5-14.5); Segmented Neutrophils % 86.5 %
[2020-05-11 07:48] LABS: White Blood Count 10.6 K/mcL (4.3-11.1)
[2020-05-11 08:01] LABS: BUN/Creatinine Ratio 21 (6-26); Blood Urea Nitrogen 16 mg/dL (8-23); Calcium 9.9 mg/dL (8.6-10.3); Carbon Dioxide 17 mEq/L (23-29); Chloride 101 mEq/L (98-107); Glucose 164 mg/dL (70-105); Osmolality,Calculated 285 (280-300); Potassium 4.6 mEq/L (3.5-5.1); Sodium 135 mEq/L (136-145); eGFR For African Americans > 60 (> 60); eGFR For Non-African Americans > 60 (> 60)
[2020-05-11] MEDS: Acetaminophen 325 MG TABLET PO PRN (21:26)
[2020-05-12] MEDS: *HR* Enoxaparin 40 MG/0.4 ML SYRINGE SQ SCH (05:09)
[2020-05-12] MEDS: Ondansetron 4 MG/2 ML VIAL IVP PRN (07:50)
[2020-05-12] MEDS: Furosemide 20 MG TABLET PO SCH (07:51)
[2020-05-12] MEDS: *HR* HYDROcodone/Acet 5/325 mg TABLET PO PRN ×3 (07:51→20:50)
[2020-05-12] MEDS: Insulin LISPRO 300 UNITS/3 ML VIAL SQ SCH ×3 (07:51→16:43)
[2020-05-12] MEDS: Metoprolol XL (24 HR) Succ 25 MG TAB.ER.24H PO SCH (07:52)
[2020-05-12] MEDS: Loratadine 10 MG TABLET PO SCH (07:52)
[2020-05-13 05:02] LABS: Hemoglobin 10.1 g/dL (11.5-15.4); Red Cell Distribution Width 15.9 % (11.5-14.5)
[2020-05-13 05:04] LABS: Basophils # 0.1 K/mcL (0.0-0.2); Basophils % 0.6 %; Eosinophils # 0.1 K/mcL (0.0-0.6); Eosinophils % 0.6 %; Hematocrit 31.8 % (35.3-44.9); Immature Granulocytes % 2.3 % (0-4); Immature Platelets 9.6 % (1.1-6.1); Lymphocytes # 1.3 K/mcL (0.6-4.6); Mean Corpuscular HGB Conc 31.8 g/dL (31.6-35.5); Mean Corpuscular Hemoglobin 29.7 pg (28.0-33.3); Mean Corpuscular Volume 93.5 fL (83.0-100.0); Mean Platelet Volume 11.8 fL (9.4-12.4); Monocytes # 1.1 K/mcL (0.0-1.3); Monocytes % 12.9 %; Neutrophils # 5.9 K/mcL (1.6-8.9); Nucleated Red Blood Cells 0.3 /100 WBC (0); Platelet Count 110 K/mcL (140-400); Segmented Neutrophils % 68.6 %; White Blood Count 8.6 K/mcL (4.3-11.1)
[2020-05-13] MEDS: *HR* Enoxaparin 40 MG/0.4 ML SYRINGE SQ SCH (05:26)
[2020-05-13 06:07] LABS: BUN/Creatinine Ratio 29 (6-26); Blood Urea Nitrogen 26 mg/dL (8-23); Calcium 9.2 mg/dL (8.6-10.3); Carbon Dioxide 19 mEq/L (23-29); Chloride 99 mEq/L (98-107); Glucose 128 mg/dL (70-105); Osmolality,Calculated 278 (280-300); Potassium 3.8 mEq/L (3.5-5.1); Sodium 131 mEq/L (136-145); eGFR For African Americans > 60 (> 60); eGFR For Non-African Americans 60 (> 60)
[2020-05-13] MEDS: Insulin LISPRO 300 UNITS/3 ML VIAL SQ SCH ×3 (07:23→16:38)
[2020-05-13] MEDS: Furosemide 20 MG TABLET PO SCH (08:04)
[2020-05-13] MEDS: Loratadine 10 MG TABLET PO SCH (08:05)
[2020-05-13] MEDS: Metoprolol XL (24 HR) Succ 25 MG TAB.ER.24H PO SCH (08:05)
[2020-05-13] MEDS: *HR* HYDROcodone/Acet 5/325 mg TABLET PO PRN ×2 (08:05→16:46)
[2020-05-14] MEDS: *HR* HYDROcodone/Acet 5/325 mg TABLET PO PRN ×2 (03:47→19:27)
[2020-05-14] MEDS: *HR* Enoxaparin 40 MG/0.4 ML SYRINGE SQ SCH (05:58)
[2020-05-14] MEDS: Loratadine 10 MG TABLET PO SCH (09:13)
[2020-05-14] MEDS: Metoprolol XL (24 HR) Succ 25 MG TAB.ER.24H PO SCH ×2 (09:13→09:19)
[2020-05-14] MEDS: Insulin LISPRO 300 UNITS/3 ML VIAL SQ SCH ×3 (09:13→16:10)
[2020-05-14 10:04] LABS: BUN/Creatinine Ratio 31 (6-26); Blood Urea Nitrogen 27 mg/dL (8-23); Calcium 9.4 mg/dL (8.6-10.3); Carbon Dioxide 23 mEq/L (23-29); Chloride 98 mEq/L (98-107); Glucose 120 mg/dL (70-105); Osmolality,Calculated 276 (280-300); Potassium 3.8 mEq/L (3.5-5.1); Sodium 130 mEq/L (136-145); eGFR For African Americans > 60 (> 60); eGFR For Non-African Americans > 60 (> 60)
[2020-05-14] MEDS: 0.9 % Sodium Chloride 1,000 ML IVC SCH (11:34)
[2020-05-15] MEDS: *HR* HYDROcodone/Acet 5/325 mg TABLET PO PRN ×3 (04:02→20:53)
[2020-05-15] MEDS: *HR* Enoxaparin 40 MG/0.4 ML SYRINGE SQ SCH (05:29)
[2020-05-15] MEDS: Ondansetron 4 MG/2 ML VIAL IVP PRN (05:32)
[2020-05-15 06:14] LABS: BUN/Creatinine Ratio 33 (6-26); Blood Urea Nitrogen 26 mg/dL (8-23); Calcium 9.1 mg/dL (8.6-10.3); Carbon Dioxide 23 mEq/L (23-29); Chloride 100 mEq/L (98-107); Glucose 122 mg/dL (70-105); Osmolality,Calculated 278 (280-300); Potassium 4.2 mEq/L (3.5-5.1); Sodium 131 mEq/L (136-145); eGFR For African Americans > 60 (> 60); eGFR For Non-African Americans > 60 (> 60)
[2020-05-15] MEDS: Insulin LISPRO 300 UNITS/3 ML VIAL SQ SCH ×3 (09:30→17:31)
[2020-05-15] MEDS: 0.9 % Sodium Chloride 1,000 ML IVC SCH ×2 (09:31→16:00)
[2020-05-15] MEDS: Loratadine 10 MG TABLET PO SCH (09:47)
[2020-05-15] MEDS: Metoprolol XL (24 HR) Succ 25 MG TAB.ER.24H PO SCH (09:48)
[2020-05-16] MEDS: *HR* Enoxaparin 40 MG/0.4 ML SYRINGE SQ SCH (05:29)
[2020-05-16] MEDS: Insulin LISPRO 300 UNITS/3 ML VIAL SQ SCH ×2 (07:53→17:24)
[2020-05-16] MEDS: Loratadine 10 MG TABLET PO SCH (08:51)
[2020-05-16] MEDS: Metoprolol XL (24 HR) Succ 25 MG TAB.ER.24H PO SCH (08:51)
[2020-05-16] MEDS: Furosemide 20 MG TABLET PO SCH (08:51)
[2020-05-16] MEDS: *HR* HYDROcodone/Acet 5/325 mg TABLET PO PRN ×3 (08:51→22:47)
[2020-05-16 09:12] LABS: BUN/Creatinine Ratio 25 (6-26); Blood Urea Nitrogen 17 mg/dL (8-23); Carbon Dioxide 21 mEq/L (23-29); Chloride 107 mEq/L (98-107); Glucose 138 mg/dL (70-105); Osmolality,Calculated 284 (280-300); Potassium 5.1 mEq/L (3.5-5.1); Sodium 135 mEq/L (136-145); eGFR For African Americans > 60 (> 60); eGFR For Non-African Americans > 60 (> 60)
[2020-05-16] MEDS ORDERED: Insulin LISPRO 300 UNITS/3 ML VIAL SQ SCH (21:00)
[2020-05-17] MEDS: *HR* Enoxaparin 40 MG/0.4 ML SYRINGE SQ SCH (05:30)
[2020-05-17] MEDS: Insulin LISPRO 300 UNITS/3 ML VIAL SQ SCH ×3 (07:45→17:00)
[2020-05-17] MEDS: Furosemide 20 MG TABLET PO SCH (07:54)
[2020-05-17] MEDS: *HR* HYDROcodone/Acet 5/325 mg TABLET PO PRN ×2 (07:55→16:27)
[2020-05-17] MEDS: Loratadine 10 MG TABLET PO SCH (07:58)
[2020-05-17] MEDS: Metoprolol XL (24 HR) Succ 25 MG TAB.ER.24H PO SCH (08:01)
[2020-05-17 15:02] VITALS: BP 104/69
== END 2020-05-17 18:39 ==
LOC: EMEROOARM 13:49 → 3ANU 13:49 → SUATTDRO 18:11 → 3ANU 18:45
PROVIDERS: ADMIT Student in an Organized Health Care Education/Training Program; ATTEND Internal Medicine

== ENCOUNTER 2020-06-10 18:22 | Observation (INO) ==
[2020-06-10 20:17] LABS: Basophils # 0.1 K/mcL (0.0-0.2); Eosinophils # 0.1 K/mcL (0.0-0.6); Eosinophils % 1.9 %; Hematocrit 31.3 % (35.3-44.9); Hemoglobin 9.9 g/dL (11.5-15.4); Immature Granulocytes % 4.1 % (0-4); Lymphocytes # 1.5 K/mcL (0.6-4.6); Lymphocytes % 25.5 %; Mean Corpuscular HGB Conc 31.6 g/dL (31.6-35.5); Mean Corpuscular Hemoglobin 28.6 pg (28.0-33.3); Mean Corpuscular Volume 90.5 fL (83.0-100.0); Mean Platelet Volume 10.4 fL (9.4-12.4); Monocytes # 0.6 K/mcL (0.0-1.3); Monocytes % 9.3 %; Neutrophils # 3.5 K/mcL (1.6-8.9); Platelet Count 232 K/mcL (140-400); Red Blood Count 3.46 M/mcL (3.82-4.97); Red Cell Distribution Width 15.9 % (11.5-14.5); Segmented Neutrophils % 58.2 %; White Blood Count 5.9 K/mcL (4.3-11.1)
[2020-06-10 20:25] LABS: INR 1.6; Prothrombin Time 18.5 Seconds (9.4-12.1)
[2020-06-10 20:28] LABS: Activated Partial Thrombo Time 42.1 Seconds (26.0-36.0)
[2020-06-10 20:33] LABS: Calcium 9.1 mg/dL (8.6-10.3); Potassium 4.5 mEq/L (3.5-5.1)
[2020-06-10] MEDS ORDERED: *HR* Heparin 5,000 UNIT/ML VIAL IVP ONE (21:41)
[2020-06-10] MEDS ORDERED: *HR* Heparin 5,000 UNIT/ML VIAL IVP PRN ×2 (21:41)
[2020-06-10] MEDS ORDERED: Heparin 25,000 UNIT/250 ML D5W 25,000 UNIT/250 ML IV.SOLN IVC SCH (21:45)
[2020-06-10] MEDS: Heparin 25,000 UNIT/250 ML D5W 25,000 UNIT/250 ML IV.SOLN IVC SCH (22:01)
[2020-06-10] MEDS ORDERED: Ondansetron 4 MG/2 ML VIAL IVP PRN (23:54)
[2020-06-10] MEDS ORDERED: Naloxone 0.4 MG/ML INJ IVP PRN (23:54)
[2020-06-10] MEDS ORDERED: Fluticasone Propionate Nasal 50 MCG/SPRAY BOTTLE NS PRN (23:56)
[2020-06-10] MEDS ORDERED: polyethylene glycoL 3350 17 GM POWD.PACK PO PRN (23:56)
[2020-06-10] MEDS ORDERED: *HR* Dextrose 50 % in Water (Vial) 50 ML VIAL IVP PRN (23:57)
[2020-06-10] MEDS ORDERED: D5% in Water 1,000 ML IVC PRN (23:57)
[2020-06-10] MEDS ORDERED: Dextrose Gel 15 GM/37.5 ML TUBE PO PRN ×2 (23:57)
[2020-06-11] MEDS: 0.9 % Sodium Chloride 1,000 ML IVC SCH ×2 (00:52→17:23)
[2020-06-11 04:35] LABS: Basophils # 0.1 K/mcL (0.0-0.2); Basophils % 1.4 %; Eosinophils # 0.1 K/mcL (0.0-0.6); Eosinophils % 2.1 %; Hematocrit 31.2 % (35.3-44.9); Hemoglobin 9.7 g/dL (11.5-15.4); Immature Granulocytes % 4.2 % (0-4); Lymphocytes # 1.6 K/mcL (0.6-4.6); Lymphocytes % 28.7 %; Mean Corpuscular HGB Conc 31.1 g/dL (31.6-35.5); Mean Corpuscular Hemoglobin 28.1 pg (28.0-33.3); Mean Corpuscular Volume 90.4 fL (83.0-100.0); Mean Platelet Volume 9.6 fL (9.4-12.4); Monocytes # 0.5 K/mcL (0.0-1.3); Monocytes % 9.3 %; Neutrophils # 3.1 K/mcL (1.6-8.9); Platelet Count 228 K/mcL (140-400); Red Blood Count 3.45 M/mcL (3.82-4.97); Segmented Neutrophils % 54.3 %; White Blood Count 5.7 K/mcL (4.3-11.1)
[2020-06-11 04:39] LABS: INR 1.5; Prothrombin Time 16.5 Seconds (9.4-12.1)
[2020-06-11] MEDS: *HR* HYDROcodone/Acet 5/325 mg TABLET PO PRN ×2 (04:49→17:33)
[2020-06-11 05:06] LABS: BUN/Creatinine Ratio 17 (6-26); Blood Urea Nitrogen 16 mg/dL (8-23); Calcium 9.2 mg/dL (8.6-10.3); Carbon Dioxide 23 mEq/L (23-29); Chloride 101 mEq/L (98-107); Chol/HDL Ratio 6.8 (0-4.9); Cholesterol 212 mg/dL (< 200); Glucose 120 mg/dL (70-105); HDL Cholesterol 31 mg/dL (40-59); LDL Cholesterol,Calculated 144 mg/dL (< 100); Magnesium 2.6 mg/dL (1.6-2.6); Osmolality,Calculated 280 (280-300); Potassium 4.3 mEq/L (3.5-5.1); Sodium 134 mEq/L (136-145); Triglycerides 185 mg/dL (< 150); eGFR For African Americans > 60 (> 60); eGFR For Non-African Americans 58 (> 60)
[2020-06-11] MEDS: Aspirin Enteric Coated 81 MG Tablet PO SCH (08:01)
[2020-06-11] MEDS: Insulin LISPRO 300 UNITS/3 ML VIAL SQ SCH ×3 (08:01→17:05)
[2020-06-11] MEDS: Loratadine 10 MG TABLET PO SCH (08:01)
[2020-06-11] MEDS: Metoprolol XL (24 HR) Succ 25 MG TAB.ER.24H PO SCH (08:01)
[2020-06-11] MEDS ORDERED: Furosemide 40 MG TABLET PO SCH (09:00)
[2020-06-11 13:21] LABS: Creatine Kinase 32 Units/L (30-223)
[2020-06-11] MEDS ORDERED: Insulin LISPRO 300 UNITS/3 ML VIAL SQ SCH (21:00)
[2020-06-12] MEDS: Heparin 25,000 UNIT/250 ML D5W 25,000 UNIT/250 ML IV.SOLN IVC SCH (00:34)
[2020-06-12 06:42] VITALS: BP 144/84
[2020-06-12] MEDS: Aspirin Enteric Coated 81 MG Tablet PO SCH (07:46)
[2020-06-12] MEDS: Loratadine 10 MG TABLET PO SCH (07:46)
[2020-06-12] MEDS: Metoprolol XL (24 HR) Succ 25 MG TAB.ER.24H PO SCH (07:46)
[2020-06-12] MEDS: Insulin LISPRO 300 UNITS/3 ML VIAL SQ SCH (07:47)
[2020-06-12] MEDS: *HR* HYDROcodone/Acet 5/325 mg TABLET PO PRN (07:49)
[2020-06-12] MEDS ORDERED: *HR* Rivaroxaban 15 MG TABLET PO SCH (09:00)
== END 2020-06-12 13:21 ==
LOC: EMEROOARM 18:22 → 3BNU 18:22 → SUATTDRO 22:10 → 3BNU 23:06
PROVIDERS: ADMIT Family Medicine; ATTEND Internal Medicine